=== PATIENT | male | born 1955 | race Caucasian/White ===

== ENCOUNTER 2016-09-01 19:45 | Emergency (ER) | payer MEDICAID ==
[~2016-09-01] VITALS: Ht 172.7 cm; Wt 93.0 kg
[~2016-09-01 19:45] MED LIST: HYDR-3583 PO; SYMB80AE INH; VENTAER INH
[2016-09-01 19:47] VITALS: BP 113/66; PULSE 68; RESP 16; TEMP 98.1; O2SAT 96
--- NOTE | 2016-09-01 20:07 | PD ---
HPI Chief Complaint: Respiratory Symptoms Time Seen by Provider: 20:06 Travel History International Travel<30 days: No Contact w/Intl Traveler<30days: No Traveled to known affect area: No History of Present Illness HPI The patient 61 years old. He states he has asthma or COPD. He was never a smoker. He had some wheezing earlier in the day and arrives to the ER as he has no albuterol at home. He experiences intermittent pressure-like sensation on the lower chest bilaterally following wheezing episodes. The patient had a nuclear medicine stress test about 13 months prior which was normal. He has an occasional cough. He states his wheezing has more or less resolved however opines that a breathing treatment may be of some benefit. PFSH Past Medical History Hx Anticoagulant Therapy: No Asthma: Yes Heart Rhythm Problems: No Cardiac Catheterization: No Cardiomyopathy: Yes Cardiovascular Problems: Yes High Cholesterol: Yes Chemotherapy: No Congestive Heart Failure: No COPD: Yes Cerebrovascular Accident: No Diabetes: No Diminished Hearing: No Gastrointestinal Disorders: Yes (ENLARGED LIVER) Hypertension: No Musculoskeletal: Yes (SCOLIOSIS;CHRONIC BACK PAIN) Neurologic: No Respiratory: Yes (ASTHMA) Immunizations Current: Yes Pneumonia: Yes Past Surgical History Coronary Artery Bypass Graft: No Tonsillectomy: Yes ( A CHILD) Social History Alcohol Use: Yes (OCCASIONAL) Tobacco Use: No Substance Use: No Allergies-Medications (Allergen,Severity, Reaction): Coded Allergies: Atrovent (Verified Allergy, Severe, CHEST PAIN, 09/01/16) Clindamycin (Verified Allergy, Severe, Fatigue, 09/01/16) Darvon (Verified Allergy, Severe, NAUSEA, 09/01/16) Ampicillin (Verified Adverse Reaction, Severe, Chest Pain, 09/01/16) Unasyn (Verified Adverse Reaction, Severe, STATES MADE ABDOMEN UPTIGHT, 09/01/16) Bactrim (Verified Adverse Reaction, Intermediate, 09/01/16) ABD PAIN Levaquin (Verified Adverse Reaction, Intermediate, Nausea/Vomiting, 09/01/16 ) Penicillin (Verified Adverse Reaction, Intermediate, NAUSEA, 09/01/16) Reported Meds & Prescriptions Reported Meds & Active Scripts Active Symbicort Inh (Budesonide/Formoterol Fumarate) 80-4.5 Mcg/Act Aero 2 Puff INH Q12HR Ventolin Hfa 18 GM Inh (Albuterol Sulfate) 90 Mcg/Act Aer 2 Puff INH Q4-6H PRN Hydrocodone-Acetaminophen 10-325 mg Tab 1 Tab PO Q6H PRN Review of Systems Except as stated in HPI: all other systems reviewed are Neg General / Constitutional: No: Fever Cardiovascular: No: Diaphoresis Physical Exam Narrative GENERAL: 61-year-old male NAD pleasant SKIN: Warm and dry. HEAD: Atraumatic. Normocephalic. EYES: Pupils equal and round. No scleral icterus. No injection or drainage. ENT: No nasal bleeding or discharge. Mucous membranes pink and moist. NECK: Trachea midline. No JVD. CARDIOVASCULAR: Regular rate and rhythm. No murmur appreciated. RESPIRATORY: There is no significant dyspnea. Perhaps trace wheezing is appreciable on auscultation of the lungs anteriorly. GASTROINTESTINAL: Abdomen soft, non-tender, nondistended. Hepatic and splenic margins not palpable. MUSCULOSKELETAL: No obvious deformities. No clubbing. No cyanosis. No edema. NEUROLOGICAL: Awake and alert. No obvious cranial nerve deficits. Motor grossly within normal limits. Normal speech. PSYCHIATRIC: Appropriate mood and affect; insight and judgment normal. Data Data Last Documented VS Vital Signs Date Time Temp Pulse Resp B/P Pulse Ox O2 Delivery O2 Flow Rate FiO2 09/01/16 20:48 94 18 127/71 97 Room Air 09/01/16 19:47 98.1 Orders Oximetry (09/01/16 20:13) Albuterol Neb (Albuterol Neb) (09/01/16 20:15) Albuterol Hfa Inh (Proair Hfa Inh) (09/01/16 20:15) MDM Medical Decision Making Medical Screen Exam Complete: Yes Emergency Medical Condition: Yes Medical Record Reviewed: Yes Differential Diagnosis Asthma, COPD, coronary artery disease, musculoskeletal chest pain, gastrointestinal pain Narrative Course Wheezing is fairly minimal on exam. Albuterol neb was provided as was an inhaler. Steroids at this time unlikely to confer substantial additional benefit. Pt ok for dc home. Diagnosis Primary Impression: Wheezing Referrals: DR MORALES 2 days Additional Instructions: You have a choice when it comes to health care, and we are glad that you chose [facility]. Hopefully, we have met your expectations on today's visit. You are welcome to return to [facility] at any time, as we are committed to meeting the health care needs of our community. Med/Other Pt SpecificInfo: Prescription(s) given Scripts Budesonide-Formoterol Inh (Symbicort Inh)80-4.5 Mcg/Act Aero2 Puff INH Q12HR # 1 INHALER Ref 0 Prov:Spencer Wilson MD 09/01/16 Albuterol 18 GM Inh (Ventolin Hfa 18 GM Inh)90 Mcg/Act Aer2 Puff INH Q4-6H PRN ( SHORTNESS OF BREATH) #1 INHALER Ref 0 Prov:Spencer Wilson MD 09/01/16 Disposition: 01 DISCHARGE HOME Condition: Spencer Garcia MD Sep 01, 2016 20:07 Disposition: 01 DISCHARGE HOME Condition: Spencer Garcia MD Sep 01, 2016 20:07
[2016-09-01 20:12] VITALS: PULSE 65; RESP 18; O2SAT 97
[2016-09-01] MEDS ORDERED: ALBUTEROL SULFATE 90 MCG/ACT HFA 8 GM INHALER INH ONE (20:15)
[2016-09-01] MEDS: RESP: ALBUTEROL 2.5 MG/3 ML NEB (SCH) INH ×2 (20:23→20:24)
[2016-09-01 20:29] VITALS: O2SAT 97
[2016-09-01] MEDS ORDERED: SYMB80AE INH (20:40)
[2016-09-01] MEDS ORDERED: VENTAER INH (20:40)
[2016-09-01 20:48] VITALS: BP 127/71; PULSE 94; RESP 18; O2SAT 97
== END 2016-09-01 21:05 | disposition home or self-care (01) ==
LOC: NEPC 19:45
DX: R06.2 Wheezing (principal)
CPT/HCPCS: 94640; 94664; 99284; J7613

== ENCOUNTER 2016-09-03 22:04 | Emergency (ER) | payer MEDICAID ==
[~2016-09-03] VITALS: Ht 172.7 cm; Wt 92.0 kg
[2016-09-03 22:06] VITALS: BP 119/69; PULSE 70; RESP 16; TEMP 98; O2SAT 98
--- NOTE | 2016-09-04 02:36 | PD ---
HPI Chief Complaint: Abdominal Pain Time Seen by Provider: 02:37 Travel History International Travel<30 days: No Contact w/Intl Traveler<30days: No Traveled to known affect area: No History of Present Illness HPI 61-year-old male came to the emergency room with history of right upper quadrant abdominal pain for past 3 days. He says he binge drink on Jania and had a dozen shots. Since then he has been hurting on the right side. He has had a history of hepatomegaly. He was concerned for that. Vital signs are stable. Patient appears to be in no severe discomfort. [facility] Past Medical History Narrative Medical List of his past medical history reviewed from the nursing note. Hx Anticoagulant Therapy: No Asthma: Yes Heart Rhythm Problems: No Cardiac Catheterization: No Cardiomyopathy: Yes Cardiovascular Problems: Yes High Cholesterol: Yes Chemotherapy: No Congestive Heart Failure: No COPD: Yes Cerebrovascular Accident: No Diabetes: No Diminished Hearing: No Gastrointestinal Disorders: Yes (ENLARGED LIVER) Heparin Induced Thrombocytopen: No Hypertension: No Musculoskeletal: Yes (SCOLIOSIS;CHRONIC BACK PAIN) Neurologic: No Respiratory: Yes (ASTHMA) Immunizations Current: Yes Pneumonia: Yes Tetanus Vaccination: Unknown Past Surgical History Coronary Artery Bypass Graft: No Tonsillectomy: Yes ( A CHILD) Family History Family Myocardial Infarction: No Social History Alcohol Use: Yes (OCC) Tobacco Use: No ([facility]MENT 2ND HAND ) Substance Use: No Allergies-Medications (Allergen,Severity, Reaction): Coded Allergies: Atrovent (Verified Allergy, Severe, CHEST PAIN, 09/03/16) Clindamycin (Verified Allergy, Severe, Fatigue, 09/03/16) Darvon (Verified Allergy, Severe, NAUSEA, 09/03/16) Ampicillin (Verified Adverse Reaction, Severe, Chest Pain, 09/03/16) Unasyn (Verified Adverse Reaction, Severe, STATES MADE ABDOMEN UPTIGHT, 09/03/16) Bactrim (Verified Adverse Reaction, Intermediate, 09/03/16) ABD PAIN Levaquin (Verified Adverse Reaction, Intermediate, Nausea/Vomiting, 09/03/16 ) Penicillin (Verified Adverse Reaction, Intermediate, NAUSEA, 09/03/16) Comments List of his allergies reviewed from the nursing note. Reported Meds & Prescriptions Reported Meds & Active Scripts Active Azithromycin 250 Mg Tab 250 Mg PO DIRECTED Take 2 tabs (500 mg) on day 1 then 1 tab daily x 4 days. Prednisone 50 Mg Tab 50 Mg PO DAILY 4 Days Tamiflu (Oseltamivir Phosphate) 75 Mg Cap 75 Mg PO BID 7 Days Symbicort Inh (Budesonide/Formoterol Fumarate) 80-4.5 Mcg/Act Aero 2 Puff INH Q12HR Ventolin Hfa 18 GM Inh (Albuterol Sulfate) 90 Mcg/Act Aer 2 Puff INH Q4-6H PRN Hydrocodone-Acetaminophen 10-325 mg Tab 1 Tab PO Q6H PRN Narrative Medication List of his home medications reviewed from the nursing note. Review of Systems Except as stated in HPI: all other systems reviewed are Neg Physical Exam Narrative GENERAL: Awake, alert, no obvious distress SKIN: Warm and dry. HEAD: Atraumatic. Normocephalic. EYES: Pupils equal and round. No scleral icterus. No injection or drainage. ENT: No nasal bleeding or discharge. Mucous membranes pink and moist. NECK: Trachea midline. No JVD. CARDIOVASCULAR: Regular rate and rhythm. No murmur appreciated. RESPIRATORY: No accessory muscle use. Clear to auscultation. Breath sounds equal bilaterally. GASTROINTESTINAL: Abdomen soft, non-tender, nondistended. Hepatic and splenic margins not palpable. MUSCULOSKELETAL: No obvious deformities. No clubbing. No cyanosis. No edema. NEUROLOGICAL: Awake and alert. No obvious cranial nerve deficits. Motor grossly within normal limits. Normal speech. PSYCHIATRIC: Appropriate mood and affect; insight and judgment normal. Data Data Last Documented VS Vital Signs Date Time Temp Pulse Resp B/P Pulse Ox O2 Delivery O2 Flow Rate FiO2 09/04/16 04:53 115/69 09/04/16 03:00 80 16 96 Room Air 09/03/16 22:06 98.0 Orders Complete Blood Count With Diff (09/04/16 02:37) Comprehensive Metabolic Panel (09/04/16 02:37) Lipase (09/04/16 02:37) Iv Access Insert/Monitor (09/04/16 02:37) Ecg Monitoring (09/04/16 02:37) Oximetry (09/04/16 02:37) Sodium Chloride 0.9% Flush (Ns Flush) (09/04/16 02:45) Labs Laboratory Tests Test 09/04/16 03:20 White Blood Count 8.6 TH/MM3 Red Blood Count 4.34 MIL/MM3 Hemoglobin 13.5 GM/DL Hematocrit 38.4 % Mean Corpuscular Volume 88.5 FL Mean Corpuscular Hemoglobin 31.1 PG Mean Corpuscular Hemoglobin 35.2 % Concent Red Cell Distribution Width 13.1 % Platelet Count 126 TH/MM3 Mean Platelet Volume 7.5 FL Neutrophils (%) (Auto) 63.1 % Lymphocytes (%) (Auto) 19.5 % Monocytes (%) (Auto) 7.8 % Eosinophils (%) (Auto) 8.5 % Basophils (%) (Auto) 1.1 % Neutrophils # (Auto) 5.4 TH/MM3 Lymphocytes # (Auto) 1.7 TH/MM3 Monocytes # (Auto) 0.7 TH/MM3 Eosinophils # (Auto) 0.7 TH/MM3 Basophils # (Auto) 0.1 TH/MM3 CBC Comment DIFF FINAL Differential Comment Sodium Level 142 MEQ/L Potassium Level 3.5 MEQ/L Chloride Level 108 MEQ/L Carbon Dioxide Level 24.7 MEQ/L Anion Gap 9 MEQ/L Blood Urea Nitrogen 19 MG/DL Creatinine 0.97 MG/DL Estimat Glomerular Filtration 78 ML/MIN Rate Random Glucose 99 MG/DL Calcium Level 8.6 MG/DL Total Bilirubin 1.3 MG/DL Aspartate Amino Transf 10 U/L (AST/SGOT) Alanine Aminotransferase 18 U/L (ALT/SGPT) Alkaline Phosphatase 73 U/L Total Protein 6.9 GM/DL Albumin 3.4 GM/DL Lipase 146 U/L MDM Medical Decision Making Medical Screen Exam Complete: Yes Emergency Medical Condition: Yes Medical Record Reviewed: Yes Differential Diagnosis Hepatomegaly, alcoholic hepatitis Narrative Course 4 AM awaiting for the blood test results to come back. Patient has been in the emergency room numerous times. He does have a primary care but prefers to come to the emergency room since as per him he gets a more thorough exam here. He was encouraged to follow up with his primary care for nonemergent issues that can be taken care as an outpatient. Procedures EKG Prior to Arrival: No Diagnosis Primary Impression: Abdominal pain Qualified Code: R10.11 - Right upper quadrant abdominal pain Referrals: Primary Care Physician 2 days Additional Instructions: Please follow-up with your primary care. Do not drink alcohol till he open cleared by your primary care. Med/Other Pt SpecificInfo: No Change to Meds Disposition: 01 DISCHARGE HOME Condition: Stable Jina Nava MD Sep 04, 2016 02:36
[2016-09-04] MEDS ORDERED: SODIUM CHLORIDE 0.9% FLUSH 5 ML FLUSH IVF PRN (02:45)
[2016-09-04 03:00] VITALS: BP 120/76; PULSE 80; RESP 16; O2SAT 96
[2016-09-04 03:45] LABS: AUTOMATED NEUTROPHIL # 5.4 TH/MM3 (1.8-7.7); BASOPHIL # 0.1 TH/MM3 (0-0.2); BASOPHIL % 1.1 % (0.0-2.0); EOSINOPHIL # 0.7 TH/MM3 (0-0.4); EOSINOPHIL % 8.5 % (0.0-4.0); HEMATOCRIT 38.4 % (39.0-51.0); HEMO FLAGS DIFF FINAL; LYMPH % 19.5 % (9.0-44.0); LYMPHOCYTE # 1.7 TH/MM3 (1.0-4.8); MEAN CELL VOLUME 88.5 FL (80.0-100.0); MEAN CORPUSCULAR HEMOGLOBIN 31.1 PG (27.0-34.0); MEAN CORPUSCULAR HGB CONC 35.2 % (32.0-36.0); MONO % 7.8 % (0.0-8.0); NEUT % 63.1 % (16.0-70.0); PLATELET COUNT 126 TH/MM3 (150-450); RED BLOOD COUNT 4.34 MIL/MM3 (4.50-5.90); RED CELL DISTRIBUTION WIDTH 13.1 % (11.6-17.2); WHITE BLOOD COUNT 8.6 TH/MM3 (4.0-11.0)
[2016-09-04 03:57] LABS: ALT (GPT) 18 U/L (12-78); ANION GAP 9 MEQ/L (5-15); AST (GOT) 10 U/L (15-37); BICARBONATE 24.7 MEQ/L (21.0-32.0); BLOOD UREA NITROGEN 19 MG/DL (7-18); CHLORIDE 108 MEQ/L (98-107); GLOMERULAR FILTRATION RATE 78 ML/MIN (>89); POTASSIUM 3.5 MEQ/L (3.5-5.1); SODIUM (NA) 142 MEQ/L (136-145)
[2016-09-04 04:00] LABS: ALKALINE PHOSPHATASE 73 U/L (45-117); TOTAL BILIRUBIN ADULT 1.3 MG/DL (0.2-1.0)
[2016-09-04 04:53] VITALS: BP 115/69
[2016-09-05] MEDS ORDERED: OSEL75 PO (22:13)
[2016-09-05] MEDS ORDERED: PRED50 PO (22:13)
[2016-09-05] MEDS ORDERED: AZIT250T3 PO (22:13)
== END 2016-09-04 04:54 | disposition home or self-care (01) ==
LOC: NEPE 22:04
DX: R10.11 Right upper quadrant pain (principal); R16.0 Hepatomegaly, not elsewhere classified; E78.00 Pure hypercholesterolemia, unspecified; J44.9 Chronic obstructive pulmonary disease, unspecified; J45.998 Other asthma
CPT/HCPCS: 80053; 83690; 85025; 99284

== ENCOUNTER 2016-09-05 17:58 | Emergency (ER) | payer MEDICAID ==
[~2016-09-05] VITALS: Ht 172.7 cm; Wt 100.0 kg
[2016-09-05 18:05] VITALS: BP 127/74; PULSE 82; RESP 16; O2SAT 94
--- NOTE | 2016-09-05 19:18 | RADRPT ---
EXAM DATE/TIME: 09/05/2016 19:06 [facility] COMPARISON: CHEST SINGLE AP, July 06, 2016, 11:32. INDICATIONS : Chest pain. MEDICAL HISTORY : Asthma SURGICAL HISTORY : None. ENCOUNTER: Initial ACUITY: 1 day PAIN SCORE: 8/10 LOCATION: Bilateral chest FINDINGS: A single view of the chest demonstrates the lungs to be symmetrically aerated without evidence of mas s, infiltrate or effusion. The cardiomediastinal contours are unremarkable. Osseous structures are intact. CONCLUSION: No evidence of acute cardiopulmonary disease. Maxwell Beal MD on September 05, 2016 at 19:16 Board Certified Radiologist. This report was verified electronically.
[2016-09-05 20:20] VITALS: RESP 18; O2SAT 98
[2016-09-05 20:26] VITALS: BP 142/85; PULSE 78; RESP 18; TEMP 98.7; O2SAT 98
[2016-09-05] MEDS ORDERED: SODIUM CHLORIDE 0.9% FLUSH 5 ML FLUSH IVF PRN (20:30)
[2016-09-05] MEDS ORDERED: methylPREDNISolone SOD SUCC 125 MG/2 ML VIAL IVP ONE (20:30)
--- NOTE | 2016-09-05 21:07 | PD ---
HPI Chief Complaint: Chest Pain Time Seen by Provider: 20:21 Travel History International Travel<30 days: No Contact w/Intl Traveler<30days: No Traveled to known affect area: No History of Present Illness HPI 61-year-old male arrives to the ER with shortness of breath. He also has had a mild generalized headache, rhinorrhea, myalgias and fever for a few days. 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 He had an inhaler which was marginally beneficial. He describes some chest tightness associated with the dyspnea. The patient suffers with asthma. He was seen here several days prior for wheezing and received 2 rounds of albuterol and a inhaler to go home with. He deferred steroids at that time. Severity moderate. PFSH Past Medical History Hx Anticoagulant Therapy: No Asthma: Yes Heart Rhythm Problems: No Cardiac Catheterization: No Cardiomyopathy: Yes Cardiovascular Problems: Yes High Cholesterol: Yes Chemotherapy: No Congestive Heart Failure: No COPD: Yes Cerebrovascular Accident: No Diabetes: No Diminished Hearing: No Gastrointestinal Disorders: Yes (ENLARGED LIVER) Heparin Induced Thrombocytopen: No Hypertension: No Musculoskeletal: Yes (SCOLIOSIS;CHRONIC BACK PAIN) Neurologic: No Respiratory: Yes Immunizations Current: Yes Pneumonia: Yes Tetanus Vaccination: > 5 Years Influenza Vaccination: No Past Surgical History Coronary Artery Bypass Graft: No Tonsillectomy: Yes ( A CHILD) Social History Alcohol Use: Yes (OCC) Tobacco Use: No ([facility] 2ND HAND ) Substance Use: No Allergies-Medications (Allergen,Severity, Reaction): Coded Allergies: Atrovent (Verified Allergy, Severe, CHEST PAIN, 09/03/16) Clindamycin (Verified Allergy, Severe, Fatigue, 09/03/16) Darvon (Verified Allergy, Severe, NAUSEA, 09/03/16) Ampicillin (Verified Adverse Reaction, Severe, Chest Pain, 09/03/16) Unasyn (Verified Adverse Reaction, Severe, STATES MADE ABDOMEN UPTIGHT, 09/03/16) Bactrim (Verified Adverse Reaction, Intermediate, 09/03/16) ABD PAIN Levaquin (Verified Adverse Reaction, Intermediate, Nausea/Vomiting, 09/03/16 ) Penicillin (Verified Adverse Reaction, Intermediate, NAUSEA, 09/03/16) Reported Meds & Prescriptions Reported Meds & Active Scripts Active Azithromycin 250 Mg Tab 250 Mg PO DIRECTED Take 2 tabs (500 mg) on day 1 then 1 tab daily x 4 days. Prednisone 50 Mg Tab 50 Mg PO DAILY 4 Days Tamiflu (Oseltamivir Phosphate) 75 Mg Cap 75 Mg PO BID 7 Days Symbicort Inh (Budesonide/Formoterol Fumarate) 80-4.5 Mcg/Act Aero 2 Puff INH Q12HR Ventolin Hfa 18 GM Inh (Albuterol Sulfate) 90 Mcg/Act Aer 2 Puff INH Q4-6H PRN Hydrocodone-Acetaminophen 10-325 mg Tab 1 Tab PO Q6H PRN Review of Systems Except as stated in HPI: all other systems reviewed are Neg Physical Exam Narrative GENERAL: 61-year-old male pleasant and speaking sentences SKIN: Warm and dry. HEAD: Atraumatic. Normocephalic. EYES: Pupils equal and round. No scleral icterus. No injection or drainage. ENT: No nasal bleeding or discharge. Mucous membranes pink and moist. NECK: Trachea midline. No JVD. CARDIOVASCULAR: Regular rate and rhythm. No murmur appreciated. RESPIRATORY: Wheezing present bilaterally. Minimal tachypnea. GASTROINTESTINAL: Abdomen soft, non-tender, nondistended. Hepatic and splenic margins not palpable. MUSCULOSKELETAL: No obvious deformities. No clubbing. No cyanosis. No edema. NEUROLOGICAL: Awake and alert. No obvious cranial nerve deficits. Motor grossly within normal limits. Normal speech. PSYCHIATRIC: Appropriate mood and affect; insight and judgment normal. Data Data Last Documented VS Vital Signs Date Time Temp Pulse Resp B/P Pulse Ox O2 Delivery O2 Flow Rate FiO2 09/05/16 22:48 22 94 Room Air 09/05/16 22:34 106 120/55 09/05/16 20:26 98.7 2 Orders Electrocardiogram (09/05/16 18:16) Complete Blood Count With Diff (09/05/16 18:16) Basic Metabolic Panel (Bmp) (09/05/16 18:16) Chest, Single Ap (09/05/16 18:16) Iv Access Insert/Monitor (09/05/16 18:16) Ecg Monitoring (09/05/16 18:16) Oxygen Administration (09/05/16 18:16) Oximetry (09/05/16 18:16) Sodium Chloride 0.9% Flush (Ns Flush) (09/05/16 20:30) Methylprednisolone So Succ Inj (Solumedr (1/5/17 20:30) Albuterol Neb (Albuterol Neb) (09/05/16 20:30) Influenzae A/B Antigen (09/05/16 20:27) Oseltamivir (Tamiflu) (09/05/16 21:45) Albuterol Neb (Albuterol Neb) (09/05/16 23:15) Labs Laboratory Tests Test 09/05/16 20:40 White Blood Count 8.3 TH/MM3 Red Blood Count 4.63 MIL/MM3 Hemoglobin 14.2 GM/DL Hematocrit 41.0 % Mean Corpuscular Volume 88.6 FL Mean Corpuscular Hemoglobin 30.6 PG Mean Corpuscular Hemoglobin 34.5 % Concent Red Cell Distribution Width 13.2 % Platelet Count 129 TH/MM3 Mean Platelet Volume 8.5 FL Neutrophils (%) (Auto) 75.2 % Lymphocytes (%) (Auto) 10.4 % Monocytes (%) (Auto) 9.6 % Eosinophils (%) (Auto) 4.1 % Basophils (%) (Auto) 0.7 % Neutrophils # (Auto) 6.2 TH/MM3 Lymphocytes # (Auto) 0.9 TH/MM3 Monocytes # (Auto) 0.8 TH/MM3 Eosinophils # (Auto) 0.3 TH/MM3 Basophils # (Auto) 0.1 TH/MM3 CBC Comment DIFF FINAL Differential Comment Sodium Level 141 MEQ/L Potassium Level 3.7 MEQ/L Chloride Level 105 MEQ/L Carbon Dioxide Level 26.4 MEQ/L Anion Gap 10 MEQ/L Blood Urea Nitrogen 15 MG/DL Creatinine 0.96 MG/DL Estimat Glomerular Filtration 79 ML/MIN Rate Random Glucose 86 MG/DL Calcium Level 8.6 MG/DL [facility] Medical Decision Making Medical Screen Exam Complete: Yes Emergency Medical Condition: Yes Medical Record Reviewed: Yes Differential Diagnosis Asthma exacerbation, influenza, pneumonia, hypoxia, anemia, renal injury, electrolyte imbalance Narrative Course The patient does report chest tightness. He had a nuclear medicine stress test was performed 13 months prior was normal such that coronary disease is considered unlikely. Typically chest tightness accompanies his asthma/ respiratory distress episodes. Possible obscured lung base consolidation is not excluded. The patient will be discharged with azithromycin and prednisone and Tamiflu. He was able to ambulate about the pod and maintained normal sats with a normal gait and respiratory effort. Return precautions were discussed. Diagnosis Primary Impression: Wheezing Additional Impressions: Influenza Chest tightness Referrals: DR MORALES 2 days Additional Instructions: You have a choice when it comes to health care, and we are glad that you chose [facility]. Hopefully, we have met your expectations on today's visit. You are welcome to return to [facility] at any time, as we are committed to meeting the health care needs of our community. Med/Other Pt SpecificInfo: Prescription(s) given Scripts Azithromycin 250 Mg [id number] Mg PO DIRECTED #6 TAB Ref 0 Take 2 tabs (500 mg) on day 1 then 1 tab daily x 4 days. Prov:Spencer Wilson MD 09/05/16 Prednisone 50 Mg Tab50 Mg PO DAILY 4 Days Ref 0 Prov:Spencer Wilson MD 09/05/16 Oseltamivir (Tamiflu)75 Mg Cap75 Mg PO BID 7 Days Ref 0 Prov:Spencer Wilson MD 09/05/16 Disposition: 01 DISCHARGE HOME Condition: Stable Spencer Wilson MD Sep 05, 2016 21:06
[2016-09-05] MEDS: RESP: ALBUTEROL 2.5 MG/3 ML NEB (SCH) INH ×4 (21:15→23:33)
[2016-09-05] MEDS ORDERED: OSELTAMIVIR PHOSPHATE 75 MG CAP PO ONE (21:45)
[2016-09-05 21:54] LABS: AUTOMATED NEUTROPHIL # 6.2 TH/MM3 (1.8-7.7); BASOPHIL # 0.1 TH/MM3 (0-0.2); BASOPHIL % 0.7 % (0.0-2.0); EOSINOPHIL # 0.3 TH/MM3 (0-0.4); EOSINOPHIL % 4.1 % (0.0-4.0); HEMO FLAGS DIFF FINAL; LYMPH % 10.4 % (9.0-44.0); LYMPHOCYTE # 0.9 TH/MM3 (1.0-4.8); MEAN CELL VOLUME 88.6 FL (80.0-100.0); MEAN CORPUSCULAR HEMOGLOBIN 30.6 PG (27.0-34.0); MEAN CORPUSCULAR HGB CONC 34.5 % (32.0-36.0); MONO % 9.6 % (0.0-8.0); NEUT % 75.2 % (16.0-70.0); PLATELET COUNT 129 TH/MM3 (150-450); RED BLOOD COUNT 4.63 MIL/MM3 (4.50-5.90); RED CELL DISTRIBUTION WIDTH 13.2 % (11.6-17.2); WHITE BLOOD COUNT 8.3 TH/MM3 (4.0-11.0)
[2016-09-05] MEDS ORDERED: AZIT250T3 PO (22:13)
[2016-09-05] MEDS ORDERED: PRED50 PO (22:13)
[2016-09-05] MEDS ORDERED: OSEL75 PO (22:13)
[2016-09-05 22:25] LABS: BICARBONATE 26.4 MEQ/L (21.0-32.0); POTASSIUM 3.7 MEQ/L (3.5-5.1)
[2016-09-05 22:34] VITALS: BP 120/55; PULSE 106; RESP 16; O2SAT 94
[2016-09-05 22:48] VITALS: RESP 22; O2SAT 94
--- NOTE | 2016-09-06 14:53 | EKG ---
Date Performed: 09/05/2016 Time Performed: 19:44:26 PTAGE: 61 years EKG: Sinus rhythm NORMAL ECG PREVIOUS TRACING : 07/06/2016 12.28 Since previous tracing, no significant change noted DOCTOR: Janey Jo Interpretating Date/Time 09/06/2016 14:53:26
== END 2016-09-06 00:22 | disposition home or self-care (01) ==
LOC: NETRI 17:58 → NEPE 09-06 00:22
DX: J09.X2 Influenza due to identified novel influenza A virus with other respiratory manifestations (principal); I42.9 Cardiomyopathy, unspecified; J45.909 Unspecified asthma, uncomplicated; J44.9 Chronic obstructive pulmonary disease, unspecified; R51 Headache; Z77.22 Contact with and (suspected) exposure to environmental tobacco smoke (acute) (chronic)
CPT/HCPCS: 71010; 80048; 85025; 87804; 93005; 94640; 94664; 96374; 99285; J2930; J7613

== ENCOUNTER 2016-09-13 19:03 | Emergency (ER) | payer MEDICAID ==
[~2016-09-13] VITALS: Ht 172.7 cm; Wt 96.0 kg
[~2016-09-13 19:03] MED LIST changes: +AZIT250T3 PO; +OSEL75 PO; +PRED50 PO
[2016-09-13 19:09] VITALS: BP 110/71; PULSE 66; RESP 16; TEMP 97.6; O2SAT 95
[2016-09-13] MEDS ORDERED: RESP: ALBUTEROL 2.5 MG/IPRATROPIUM 0.5 MG NEB (SCH) NEB ONE (20:45)
[2016-09-13] MEDS ORDERED: KETOROLAC TROMETHAMINE 60 MG/2 ML (IM) VIAL IM ONE (20:45)
--- NOTE | 2016-09-13 21:28 | RADRPT ---
EXAM DATE/TIME: 09/13/2016 20:48 [facility] COMPARISON: No previous studies available for comparison. INDICATIONS : Cough, Chest Pain. MEDICAL HISTORY : Hypercholesterolemia. Chronic obstructive pulmonary disease. Cardiomyopathy. Asthma. Enlarged liver. Scoliosis. SURGICAL HISTORY : Tonsillectomy. ENCOUNTER: Initial ACUITY: 1 day PAIN SCORE: 7/10 LOCATION: Bilateral chest FINDINGS: The heart size is normal. The lungs are free of focal consolidation. The lungs do appear somewhat h yperinflated. No effusion is seen. CONCLUSION: No acute abnormality is seen. The lungs do appear hyperinflated. Maxwell Maher MD on September 13, 2016 at 20:55 Board Certified Radiologist. This report was verified electronically.
--- NOTE | 2016-09-13 23:11 | PD ---
HPI Chief Complaint: Respiratory Symptoms Time Seen by Provider: 20:20 Travel History International Travel<30 days: No Contact w/Intl Traveler<30days: No Traveled to known affect area: No History of Present Illness HPI Patient is a 61 year old male with history of asthma who comes in complaining of coughing up phlegm and right sided pain. He says he inhaled something in the air and this bothered his asthma, causing him to cough very hard. He says he has coughed up some clear phlegm and now has the pain to the right side of his ribs. He says he feels a pressure in his chest, which he always has when his asthma bothers him. He says he gets this pressure and he does not always wheeze. He denies fever or chills. He has recently been here multiple times for issues with his asthma. He recently finished a course of antibiotics and steroids. PFSH Past Medical History Hx Anticoagulant Therapy: No Asthma: Yes Heart Rhythm Problems: No Cardiac Catheterization: No Cardiomyopathy: Yes Cardiovascular Problems: Yes High Cholesterol: Yes Chemotherapy: No Congestive Heart Failure: No COPD: Yes Cerebrovascular Accident: No Diabetes: No Diminished Hearing: No Gastrointestinal Disorders: Yes (ENLARGED LIVER) Heparin Induced Thrombocytopen: No Hypertension: No Musculoskeletal: Yes (SCOLIOSIS;CHRONIC BACK PAIN) Neurologic: No Respiratory: Yes (ASTHMA) Immunizations Current: Yes Pneumonia: Yes Past Surgical History Coronary Artery Bypass Graft: No Tonsillectomy: Yes ( A CHILD) Social History Alcohol Use: Yes (OCC) 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 ) Substance Use: No Allergies-Medications (Allergen,Severity, Reaction): Coded Allergies: Atrovent (Verified Allergy, Severe, CHEST PAIN, 09/13/16) Clindamycin (Verified Allergy, Severe, Fatigue, 09/13/16) Darvon (Verified Allergy, Severe, NAUSEA, 09/13/16) Ampicillin (Verified Adverse Reaction, Severe, Chest Pain, 09/13/16) Unasyn (Verified Adverse Reaction, Severe, STATES MADE ABDOMEN UPTIGHT, ) Bactrim (Verified Adverse Reaction, Intermediate, 09/13/16) ABD PAIN Levaquin (Verified Adverse Reaction, Intermediate, Nausea/Vomiting, ) Penicillin (Verified Adverse Reaction, Intermediate, NAUSEA, 09/13/16) Reported Meds & Prescriptions Reported Meds & Active Scripts Active Symbicort Inh (Budesonide/Formoterol Fumarate) 80-4.5 Mcg/Act Aero 2 Puff INH Q12HR Ventolin Hfa 18 GM Inh (Albuterol Sulfate) 90 Mcg/Act Aer 2 Puff INH Q4-6H PRN Hydrocodone-Acetaminophen 10-325 mg Tab 1 Tab PO Q6H PRN Review of Systems General / Constitutional: No: Fever, Chills HENT: No: Headaches, Lightheadedness, Sore Throat Cardiovascular: No: Chest Pain or Discomfort Respiratory: Positive: Cough Gastrointestinal: No: Nausea, Vomiting Genitourinary: No: Dysuria Musculoskeletal: Positive: Pain Skin: No Change in Pigmentation Neurologic: No: Weakness, Dizziness Physical Exam Narrative GENERAL: Awake and alert in no acute distress. SKIN: Warm and dry. HEAD: Atraumatic. Normocephalic. EYES: Pupils equal and round. No scleral icterus. ENT: Mucous membranes pink and moist. No tonsillar swelling, no uvular swelling, no tonsillar exudates. NECK: Trachea midline. No JVD. CARDIOVASCULAR: Regular rate and rhythm. No murmur appreciated. RESPIRATORY: No accessory muscle use. Clear to auscultation. Breath sounds equal bilaterally. MUSCULOSKELETAL: No obvious deformities. No clubbing. No cyanosis. No edema. NEUROLOGICAL: Awake and alert. No obvious cranial nerve deficits. Motor grossly within normal limits. Normal speech. Data Data Last Documented VS Vital Signs Date Time Temp Pulse Resp B/P Pulse Ox O2 Delivery O2 Flow Rate FiO2 09/13/16 19:09 97.6 66 16 110/71 95 Orders Chest, Pa & Lat (09/13/16 ) Electrocardiogram (09/13/16 ) Albuterol-Ipratropium Neb (Duoneb Neb) (09/13/16 20:45) Ketorolac Inj (Toradol Inj) (09/13/16 20:45) MDM Medical Decision Making Medical Screen Exam Complete: Yes Emergency Medical Condition: Yes Medical Record Reviewed: Yes Interpretation(s) ECG shows sinus bradycardia at 58, no ST elevation or depression, normal intervals. Differential Diagnosis URI versus pneumonia versus bronchitis versus asthma exacerbation Narrative Course Patient is a 61 year old male complaining of coughing and right side pain after "inhaling something." Exam shows lungs are CTA. There is tenderness to the right lower ribs on the side. CXR obtained, shows no acute abnormalities. Given 1 duoneb and Toradol with improvement of his symptoms. Patient will be discharged home. Advised to follow up with his doctor. Return to the ED as needed for any worsening symptoms. Diagnosis Primary Impression: Rib pain Patient Instructions: Asthma (ED), General Instructions, Rib Contusion (ED) Additional Instructions: Take Tylenol or Ibuprofen as needed for pain. Use your inhaler as needed for asthma. Follow up with your doctor. Return to the ED as needed for any worsening symptoms. Disposition: 01 DISCHARGE HOME Condition: Stable Skyla Gardner MD Sep 13, 2016 23:11
--- NOTE | 2016-09-14 14:26 | EKG ---
Date Performed: 09/13/2016 Time Performed: 21:07:18 PTAGE: 61 years EKG: SINUS BRADYCARDIA LOW QRS VOLTAGE IN PRECORDIAL LEADS BORDERLINE ECG Compared to prior trac ing no significant change PREVIOUS TRACING 09/05/2016 @19.44.26 DOCTOR: Mendez Jain Interpretating Date/Time 09/14/2016 14:24:59
== END 2016-09-14 00:22 | disposition home or self-care (01) ==
LOC: NEPE 19:03
DX: R07.81 Pleurodynia (principal); J45.909 Unspecified asthma, uncomplicated; J44.9 Chronic obstructive pulmonary disease, unspecified
CPT/HCPCS: 71020; 93005; 94664; 96372; 99283; J1885

== ENCOUNTER 2016-09-27 20:48 | Emergency (ER) | payer MEDICAID ==
[~2016-09-27] VITALS: Ht 172.7 cm; Wt 91.0 kg
[~2016-09-27 20:48] MED LIST changes: -AZIT250T3 PO; -OSEL75 PO; -PRED50 PO
[2016-09-27 20:52] VITALS: BP 145/78; PULSE 64; RESP 18; TEMP 97.7; O2SAT 97
[2016-09-27] MEDS ORDERED: NAPR500 PO (21:20)
--- NOTE | 2016-09-27 21:21 | PD ---
HPI Chief Complaint: Respiratory Symptoms Time Seen by Provider: 21:00 Travel History International Travel<30 days: No Contact w/Intl Traveler<30days: No Traveled to known affect area: No History of Present Illness HPI 61-year-old male presents emergent department pruritic right sided chest pain ongoing for months. He states it started after he was admitted for antibiotics and he felt like it is swollen liver. Multiple tests since then. Worse today and so he came to the emergency department. PFSH Past Medical History Hx Anticoagulant Therapy: No Asthma: Yes Heart Rhythm Problems: No Cardiac Catheterization: No Cardiomyopathy: Yes Cardiovascular Problems: Yes High Cholesterol: Yes Chemotherapy: No Congestive Heart Failure: No COPD: Yes Cerebrovascular Accident: No Diabetes: No Diminished Hearing: No Gastrointestinal Disorders: Yes (ENLARGED LIVER) Heparin Induced Thrombocytopen: No Hypertension: No Musculoskeletal: Yes (SCOLIOSIS;CHRONIC BACK PAIN) Neurologic: No Respiratory: Yes (ASTHMA) Immunizations Current: Yes Pneumonia: Yes Tetanus Vaccination: Unknown Influenza Vaccination: No Past Surgical History Coronary Artery Bypass Graft: No Tonsillectomy: Yes ( A CHILD) Social History Alcohol Use: Yes (OCC) Tobacco Use: No ([facility] 2ND HAND ) Substance Use: No Allergies-Medications (Allergen,Severity, Reaction): Coded Allergies: Atrovent (Verified Allergy, Severe, CHEST PAIN, 09/27/16) Clindamycin (Verified Allergy, Severe, Fatigue, 09/27/16) Darvon (Verified Allergy, Severe, NAUSEA, 09/27/16) Ampicillin (Verified Adverse Reaction, Severe, Chest Pain, 09/27/16) Unasyn (Verified Adverse Reaction, Severe, STATES MADE ABDOMEN UPTIGHT, ) Bactrim (Verified Adverse Reaction, Intermediate, 09/27/16) ABD PAIN Levaquin (Verified Adverse Reaction, Intermediate, Nausea/Vomiting, ) Penicillin (Verified Adverse Reaction, Intermediate, NAUSEA, 09/27/16) Reported Meds & Prescriptions Reported Meds & Active Scripts Active Symbicort Inh (Budesonide/Formoterol Fumarate) 80-4.5 Mcg/Act Aero 2 Puff INH Q12HR Ventolin Hfa 18 GM Inh (Albuterol Sulfate) 90 Mcg/Act Aer 2 Puff INH Q4-6H PRN Hydrocodone-Acetaminophen 10-325 mg Tab 1 Tab PO Q6H PRN Review of Systems Except as stated in HPI: all other systems reviewed are Neg Physical Exam Narrative GENERAL: Well-appearing 61 year-old woman, no acute distress. SKIN: Warm and dry. HEAD: Atraumatic. Normocephalic. EYES: Pupils equal and round. No scleral icterus. No injection or drainage. ENT: No nasal bleeding or discharge. Mucous membranes pink and moist. NECK: Trachea midline. No JVD. CARDIOVASCULAR: Regular rate and rhythm. No murmur appreciated. RESPIRATORY: Lungs are clear. No wheezing.. Abdomen: Soft. No palpable organomegaly or splenomegaly. MUSCULOSKELETAL: No obvious deformities. Chronic edema in both legs. NEUROLOGICAL: Awake and alert. No obvious cranial nerve deficits. Motor grossly within normal limits. Normal speech. PSYCHIATRIC: Appropriate mood and affect; insight and judgment normal. Data Data Last Documented VS Vital Signs Date Time Temp Pulse Resp B/P Pulse Ox O2 Delivery O2 Flow Rate FiO2 09/27/16 20:52 97.7 64 18 145/78 97 Room Air MDM Medical Decision Making Medical Screen Exam Complete: Yes Emergency Medical Condition: Yes Differential Diagnosis Pleurisy, chest wall pain, PE, other Narrative Course Medical decision-making 61-year-old man with visits to the ED every other week for various complaints. Some history of asthma. Comes in now of right sided chest pain ongoing for months. Multiple x-rays since that time, all negative. He had ultrasound showed some mild splenomegaly. He also had a CT showed some nodules in the right lung. Elevated needs any further evaluation right now. Recommend repeat CT as discussed for follow-up of pulmonary nodules, NSAIDs for pain. Diagnosis Primary Impression: Atypical chest pain Additional Instructions: Follow-up with her primary physician for repeat CT to follow-up on nodules in the right lung. Take Naprosyn as needed for pain. Return to the emergency department for any new or worsening symptoms. Scripts Naproxen (Naprosyn)500 Mg [id number] Mg PO BID PRN (PAIN SCALE 1 TO 10) #20 TAB Prov:Soy Zhang MD 09/27/16 Disposition: 01 DISCHARGE HOME Condition: Stable Soy Zhang MD Sep 27, 2016 21:20
== END 2016-09-27 22:15 | disposition home or self-care (01) ==
LOC: NEPE 20:48
DX: R07.89 Other chest pain (principal); E78.00 Pure hypercholesterolemia, unspecified; J44.9 Chronic obstructive pulmonary disease, unspecified; J45.909 Unspecified asthma, uncomplicated
CPT/HCPCS: 99284

== ENCOUNTER 2016-09-28 17:53 | Emergency (ER) | payer MEDICAID ==
[~2016-09-28] VITALS: Ht 172.7 cm; Wt 92.0 kg
[~2016-09-28 17:53] MED LIST changes: +NAPR500 PO
[2016-09-28 17:55] VITALS: BP 142/73; PULSE 60; RESP 20; TEMP 97.8; O2SAT 96
--- NOTE | 2016-09-28 18:26 | PD ---
HPI Chief Complaint: Pain: Acute or Chronic Time Seen by Provider: 18:15 Travel History International Travel<30 days: No Contact w/Intl Traveler<30days: No Traveled to known affect area: No History of Present Illness HPI Patient is a 61-year-old male who presents to emergency room for evaluation of a lung nodules. Patient reports that he was seen a few months ago and had a CAT scan of his lungs which showed lung nodules, reports that he was seen in the emergency room last night and was told that he had these lung nodules that need to be evaluated. Patient here in the emergency room requesting that his lung nodules be evaluated and worked up. Patient reports "I don't want to wait to see my primary care doctor, I want to know if I have cancer right now." Patient denies chest pain/sob. Patient reports that he is only here for workup of his lung nodules PFSH Past Medical History Hx Anticoagulant Therapy: No Asthma: Yes Heart Rhythm Problems: No Cardiac Catheterization: No Cardiomyopathy: Yes Cardiovascular Problems: Yes High Cholesterol: Yes Chemotherapy: No Congestive Heart Failure: No COPD: Yes Cerebrovascular Accident: No Diabetes: No Diminished Hearing: No Gastrointestinal Disorders: Yes (ENLARGED LIVER) Heparin Induced Thrombocytopen: No Hypertension: No Musculoskeletal: Yes (SCOLIOSIS;CHRONIC BACK PAIN) Neurologic: No Respiratory: Yes Immunizations Current: Yes Pneumonia: Yes Past Surgical History Coronary Artery Bypass Graft: No Tonsillectomy: Yes ( A CHILD) Social History Alcohol Use: Yes (OCC) 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 ) Substance Use: No Allergies-Medications (Allergen,Severity, Reaction): Coded Allergies: Atrovent (Verified Allergy, Severe, CHEST PAIN, 09/27/16) Clindamycin (Verified Allergy, Severe, Fatigue, 09/27/16) Darvon (Verified Allergy, Severe, NAUSEA, 09/27/16) Ampicillin (Verified Adverse Reaction, Severe, Chest Pain, 09/27/16) Unasyn (Verified Adverse Reaction, Severe, STATES MADE ABDOMEN UPTIGHT, ) Bactrim (Verified Adverse Reaction, Intermediate, 09/27/16) ABD PAIN Levaquin (Verified Adverse Reaction, Intermediate, Nausea/Vomiting, ) Penicillin (Verified Adverse Reaction, Intermediate, NAUSEA, 09/27/16) Reported Meds & Prescriptions Reported Meds & Active Scripts Active Naprosyn (Naproxen) 500 Mg Tab 500 Mg PO BID PRN Symbicort Inh (Budesonide/Formoterol Fumarate) 80-4.5 Mcg/Act Aero 2 Puff INH Q12HR Ventolin Hfa 18 GM Inh (Albuterol Sulfate) 90 Mcg/Act Aer 2 Puff INH Q4-6H PRN Hydrocodone-Acetaminophen 10-325 mg Tab 1 Tab PO Q6H PRN Review of Systems General / Constitutional: No: Fever Eyes: No: Visual changes HENT: No: Headaches Cardiovascular: No: Chest Pain or Discomfort Respiratory: No: Shortness of Breath Gastrointestinal: No: Abdominal Pain Genitourinary: No: Dysuria Musculoskeletal: No: Pain Skin: No Rash Neurologic: No: Weakness Psychiatric: No: Depression Endocrine: No: Polydipsia Hematologic/Lymphatic: No: Easy Bruising Physical Exam Narrative GENERAL: nad, nontoxic SKIN: Warm and dry. HEAD: Atraumatic. Normocephalic. CARDIOVASCULAR: Regular rate and rhythm. No murmur appreciated. RESPIRATORY: No accessory muscle use. Clear to auscultation. Breath sounds equal bilaterally. GASTROINTESTINAL: Abdomen soft, non-tender, nondistended. Hepatic and splenic margins not palpable. MUSCULOSKELETAL: No obvious deformities. No clubbing. No cyanosis. No edema. NEUROLOGICAL: Awake and alert. No obvious cranial nerve deficits. Motor grossly within normal limits. Normal speech. PSYCHIATRIC: anxious Data Data Last Documented VS Vital Signs Date Time Temp Pulse Resp B/P Pulse Ox O2 Delivery O2 Flow Rate FiO2 09/28/16 17:55 97.8 60 20 142/73 96 Room Air [facility] Medical Decision Making Medical Screen Exam Complete: Yes Emergency Medical Condition: No Interpretation(s) Vital Signs Date Time Temp Pulse Resp B/P Pulse Ox O2 Delivery O2 Flow Rate FiO2 09/28/16 17:55 97.8 60 20 142/73 96 Room Air Differential Diagnosis lung nodule, malignancy Narrative Course Patient is a 61-year-old male who presents most room for evaluation of lung nodule. Patient reports that he had recent CAT scans of his chest which showed a nodule to his lung, reports that he was told his lung nodules yesterday as he was seen in the emergency room for atypical chest pain. Patient reports that he is concerned that his lung nodules may be cancerous and request further evaluation of these lung nodules today, patient would like to know if he has lung cancer. Patient's vital signs are stable, patient with no other complaints at this time. I did discuss with patient that he will need to follow-up with his primary care doctor for further workup and evaluation of the lung nodules, discussed with patient that I cannot diagnose lung cancer in the ER and that he will need to follow up as outpatient for further testing. Discussed with patient that I would be more than happy to treat and manage any acute symptoms he may be having at this time, patient reports that he is only here to see if he has lung cancer. During my conversation and evaluation of patient, patient decided that he no longer wanted to be evaluated and walked out of the ER. Yoselin Martinez DO Sep 28, 2016 18:26
== END 2016-09-28 18:51 | disposition home or self-care (01) ==
LOC: NEPC 17:53
DX: R91.8 Other nonspecific abnormal finding of lung field (principal)
CPT/HCPCS: 99283

== ENCOUNTER 2016-10-09 08:41 | Emergency (ER) | payer MEDICAID ==
[~2016-10-09] VITALS: Ht 172.7 cm; Wt 92.0 kg
[2016-10-09 08:53] VITALS: BP 119/81; PULSE 71; RESP 16; TEMP 98.5; O2SAT 97
[2016-10-09] MEDS ORDERED: IBUP800T23 PO (09:21)
[2016-10-09] MEDS ORDERED: ROBA500T PO (09:21)
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
[2016-10-09] MEDS ORDERED: METHOCARBAMOL 500 MG TAB PO ONE (09:30)
[2016-10-09] MEDS ORDERED: IBUPROFEN 800 MG TAB PO ONE (09:30)
== END 2016-10-09 09:39 | disposition home or self-care (01) ==
LOC: NEPB 08:41
DX: S00.83XA Contusion of other part of head, initial encounter (principal); G89.29 Other chronic pain; J45.909 Unspecified asthma, uncomplicated; E78.00 Pure hypercholesterolemia, unspecified; J44.9 Chronic obstructive pulmonary disease, unspecified; Y04.0XXA Assault by unarmed brawl or fight, initial encounter; Y09 Assault by unspecified means
CPT/HCPCS: 99283

== ENCOUNTER 2017-02-19 21:47 | Emergency (ER) | payer MEDICAID ==
[~2017-02-19] VITALS: Ht 172.7 cm; Wt 79.0 kg
[~2017-02-19 21:47] MED LIST changes: +IBUP800T23 PO; +ROBA500T PO
[2017-02-19 21:50] VITALS: BP 115/69; PULSE 67; RESP 16; TEMP 98.7; O2SAT 97
--- NOTE | 2017-02-19 22:33 | PD ---
HPI Chief Complaint: ENT Complaint Time Seen by Provider: 22:31 Travel History International Travel<30 days: No Contact w/Intl Traveler<30days: No Traveled to known affect area: No History of Present Illness HPI Patient presents complaining of left ear pressure, muffled hearing. He states it's been going on for 4-5 days. He reports a history of the same when he had wax impacted. He denies any headaches, fevers or other complaints at this time. PFSH Past Medical History Hx Anticoagulant Therapy: No Asthma: Yes Heart Rhythm Problems: No Cardiac Catheterization: No Cardiomyopathy: Yes Cardiovascular Problems: Yes High Cholesterol: Yes Chemotherapy: No Congestive Heart Failure: No COPD: Yes Cerebrovascular Accident: No Diabetes: No Diminished Hearing: No Gastrointestinal Disorders: Yes (ENLARGED LIVER) Heparin Induced Thrombocytopen: No Hypertension: No Musculoskeletal: Yes (SCOLIOSIS;CHRONIC BACK PAIN) Neurologic: No Respiratory: Yes (ASTHMA) Immunizations Current: Yes Pneumonia: Yes Past Surgical History Coronary Artery Bypass Graft: No Tonsillectomy: Yes ( A CHILD) Social History Alcohol Use: Yes Tobacco Use: Yes Substance Use: No Allergies-Medications (Allergen,Severity, Reaction): Coded Allergies: Atrovent (Verified Allergy, Severe, CHEST PAIN, 02/19/17) Clindamycin (Verified Allergy, Severe, Fatigue, 02/19/17) Darvon (Verified Allergy, Severe, NAUSEA, 02/19/17) Ampicillin (Verified Adverse Reaction, Severe, Chest Pain, 02/19/17) Unasyn (Verified Adverse Reaction, Severe, STATES MADE ABDOMEN UPTIGHT, ) Bactrim (Verified Adverse Reaction, Intermediate, 02/19/17) ABD PAIN Levaquin (Verified Adverse Reaction, Intermediate, Nausea/Vomiting, ) Penicillin (Verified Adverse Reaction, Intermediate, NAUSEA, 02/19/17) Reported Meds & Prescriptions Reported Meds & Active Scripts Active Symbicort Inh (Budesonide/Formoterol Fumarate) 80-4.5 Mcg/Act Aero 2 Puff INH Q12HR Ventolin Hfa 18 GM Inh (Albuterol Sulfate) 90 Mcg/Act Aer 2 Puff INH Q4-6H PRN Hydrocodone-Acetaminophen 10-325 mg Tab 1 Tab PO Q6H PRN Review of Systems Except as stated in HPI: all other systems reviewed are Neg HENT: Positive: Earache Physical Exam Narrative GENERAL: Well-nourished, well-developed patient. SKIN: Focused skin assessment warm/dry. HEAD: Normocephalic. EYES: No scleral icterus. No injection or drainage. EARS: Bilateral pinnae and right external canals appear within normal limits. Bilateral tympanic membranes without erythema, dullness or perforation. Left external ear canal with significant cerumen impaction. Cerumen was removed with curette NECK: Supple, trachea midline. No JVD or lymphadenopathy. CARDIOVASCULAR: Regular rate and rhythm without murmurs, gallops, or rubs. RESPIRATORY: Breath sounds equal bilaterally. No accessory muscle use. GASTROINTESTINAL: Abdomen soft, non-tender, nondistended. MUSCULOSKELETAL: No cyanosis, or edema. BACK: Nontender without obvious deformity. No CVA tenderness. Data Data Last Documented VS Vital Signs Date Time Temp Pulse Resp B/P Pulse Ox O2 Delivery O2 Flow Rate FiO2 02/19/17 21:50 98.7 67 16 115/69 97 Room Air MDM Medical Decision Making Medical Screen Exam Complete: Yes Emergency Medical Condition: Yes Interpretation(s) Vital Signs Date Time Temp Pulse Resp B/P Pulse Ox O2 Delivery O2 Flow Rate FiO2 02/19/17 21:50 98.7 67 16 115/69 97 Room Air Differential Diagnosis Otitis media versus otitis externa versus cerumen impaction versus other Narrative Course Patient is a 61-year-old male presenting with left ear pressure and felt hearing. Physical examination showed significant cerumen impaction, cerumen was removed with curette. Patient tolerated procedure well. He was encouraged to avoid Q-tips and obtain [id number] DEBROX and use as directed. He was encouraged to follow-up with primary care provider. He was encouraged to return to emergency department for any new or worsening symptoms. Patient verbalized understanding, patient is stable for discharge. Diagnosis Primary Impression: Cerumen impaction Qualified Code: H61.22 - Impacted cerumen of left ear Referrals: [facility] Primary Care Physician Patient Instructions: Cerumen Impaction (ED), General Instructions Additional Instructions: Obtain [id number] DEBROX and use as directed Avoid use of Q-tips Follow-up with a primary doctor Return to emergency department for new or worsening symptoms Med/Other Pt SpecificInfo: No Change to Meds Disposition: 01 DISCHARGE HOME Condition: Stable Shanika Loredo Feb 19, 2017 22:33
== END 2017-02-19 22:44 | disposition home or self-care (01) ==
LOC: NEPK 21:47
DX: H61.22 Impacted cerumen, left ear (principal); J45.909 Unspecified asthma, uncomplicated; I42.9 Cardiomyopathy, unspecified; E78.00 Pure hypercholesterolemia, unspecified; J44.9 Chronic obstructive pulmonary disease, unspecified; M41.9 Scoliosis, unspecified; Z72.0 Tobacco use; Z79.899 Other long term (current) drug therapy
CPT/HCPCS: 69210

== ENCOUNTER 2017-03-09 14:43 | Emergency (ER) | payer MEDICAID ==
[~2017-03-09 14:43] MED LIST changes: -IBUP800T23 PO; -NAPR500 PO; -ROBA500T PO
[2017-03-09 14:45] VITALS: BP 125/80; PULSE 84; RESP 18; TEMP 98.6; O2SAT 99
[2017-03-09] MEDS ORDERED: SYMB80AE INH (16:28)
[2017-03-09] MEDS ORDERED: VENTAER INH (16:28)
--- NOTE | 2017-03-09 16:29 | PD ---
HPI Chief Complaint: Medical Clearance Time Seen by Provider: 16:27 Travel History International Travel<30 days: No Contact w/Intl Traveler<30days: No Traveled to known affect area: No History of Present Illness HPI 61-year-old male presents to the emergency department requesting refills on inhalers of Symbicort and Ventolin for his asthma. He said he ran out of his inhalers 2 days ago and feels like he may have an asthma exacerbation coming on and does not want to end up having to call the ambulance. He does not have money to pay for the prescriptions and is asking for the inhalers to take home. He denies chest pain, chest tightness, shortness of breath, wheezing at this time. Has no other medical complaints. No other modifying factors or associated signs and symptoms. PFSH Past Medical History Hx Anticoagulant Therapy: No Asthma: Yes Heart Rhythm Problems: No Cardiac Catheterization: No Cardiomyopathy: Yes Cardiovascular Problems: Yes High Cholesterol: Yes Chemotherapy: No Congestive Heart Failure: No COPD: Yes Cerebrovascular Accident: No Diabetes: No Diminished Hearing: No Gastrointestinal Disorders: Yes (ENLARGED LIVER) Heparin Induced Thrombocytopen: No Hypertension: No Musculoskeletal: Yes (SCOLIOSIS;CHRONIC BACK PAIN) Neurologic: No Respiratory: Yes (ASTHMA) Immunizations Current: Yes Pneumonia: Yes Past Surgical History Coronary Artery Bypass Graft: No Tonsillectomy: Yes ( A CHILD) Social History Alcohol Use: Yes Tobacco Use: Yes Substance Use: No Allergies-Medications (Allergen,Severity, Reaction): Coded Allergies: Atrovent (Verified Allergy, Severe, CHEST PAIN, 02/19/17) Clindamycin (Verified Allergy, Severe, Fatigue, 02/19/17) Darvon (Verified Allergy, Severe, NAUSEA, 02/19/17) Ampicillin (Verified Adverse Reaction, Severe, Chest Pain, 02/19/17) Unasyn (Verified Adverse Reaction, Severe, STATES MADE ABDOMEN UPTIGHT, ) Bactrim (Verified Adverse Reaction, Intermediate, 02/19/17) ABD PAIN Levaquin (Verified Adverse Reaction, Intermediate, Nausea/Vomiting, ) Penicillin (Verified Adverse Reaction, Intermediate, NAUSEA, 02/19/17) Reported Meds & Prescriptions Reported Meds & Active Scripts Active Symbicort Inh (Budesonide/Formoterol Fumarate) 80-4.5 Mcg/Act Aero 2 Puff INH Q12HR Ventolin Hfa 18 GM Inh (Albuterol Sulfate) 90 Mcg/Act Aer 2 Puff INH Q4-6H PRN Hydrocodone-Acetaminophen 10-325 mg Tab 1 Tab PO Q6H PRN Review of Systems Except as stated in HPI: all other systems reviewed are Neg Physical Exam Narrative GENERAL: Well-nourished, well-developed patient, in no acute distress; disheveled SKIN: Warm and dry. HEAD: Atraumatic. Normocephalic. EYES: Pupils equal and round. No scleral icterus. No injection or drainage. ENT: Mucosa pink and moist. Airway patent. NECK: Trachea midline. CARDIOVASCULAR: Regular rate and rhythm. No murmur appreciated. RESPIRATORY: No accessory muscle use. Clear to auscultation. Breath sounds equal bilaterally. No retractions or tachypnea. GASTROINTESTINAL: Rounded. MUSCULOSKELETAL: No obvious deformities. No clubbing. No cyanosis. No edema. NEUROLOGICAL: Awake and alert. Oriented 3. No obvious cranial nerve deficits. Motor grossly within normal limits. Normal speech. PSYCHIATRIC: Appropriate mood and affect; insight and judgment normal. Data Data Last Documented VS Vital Signs Date Time Temp Pulse Resp B/P Pulse Ox O2 Delivery O2 Flow Rate FiO2 03/09/17 14:45 98.6 84 18 125/80 99 Orders Albuterol Hfa Inh (Proair Hfa Inh) (03/09/17 16:45) Budeson-Formot 80-4.5 Mcg Inh (Symbicort (03/09/17 16:45) MDM Medical Decision Making Medical Screen Exam Complete: Yes Emergency Medical Condition: Yes Medical Record Reviewed: Yes Differential Diagnosis Medication refill, medical clearance, asthma exacerbation Narrative Course 61-year-old homeless male with history of asthma requesting Symbicort and Ventolin inhalers to be sent home with. Ran out of his inhalers 2 days ago. Reviewed his records and he has multiple visits for asthma exacerbation. Patient is in no acute distress and without retractions or tachypnea. Lungs are clear and equal bilaterally. I will provide the patient was Symbicort and Ventolin inhalers for home. Orders entered. Instructed patient to follow up with primary care provider. Patient verbalizes understanding and agreement with treatment plan. Patient is medically cleared and stable for discharge. Discussed reasons to return to the emergency department. Patient agrees with treatment plan. The patients vital signs are stable and the patient is stable for outpatient follow-up and treatment. Patient discharged home, stable and in no acute distress. Diagnosis Primary Impression: Medication refill Referrals: Primary Care Physician Patient Instructions: General Instructions, Medication Refill, ED Additional Instructions: Follow-up with primary care provider Return to the emergency department immediately if worsening of symptoms Med/Other Pt SpecificInfo: Prescription(s) given Disposition: 01 DISCHARGE HOME Condition: Stable Dasia Fox [facility] Mar 09, 2017 16:29
[2017-03-09] MEDS ORDERED: BUDESONIDE-FORMOTEROL 80/4.5 MCG INHALER INH ONE (16:45)
[2017-03-09] MEDS ORDERED: ALBUTEROL SULFATE 90 MCG/ACT HFA 8 GM INHALER INH ONE (16:45)
== END 2017-03-09 17:40 | disposition home or self-care (01) ==
LOC: NEPK 14:43
DX: Z76.0 Encounter for issue of repeat prescription (principal); J45.909 Unspecified asthma, uncomplicated; J44.9 Chronic obstructive pulmonary disease, unspecified; E78.00 Pure hypercholesterolemia, unspecified; R16.0 Hepatomegaly, not elsewhere classified; M41.9 Scoliosis, unspecified; Z59.0 Homelessness; Z79.899 Other long term (current) drug therapy
CPT/HCPCS: 99281

== ENCOUNTER 2017-04-15 16:12 | Emergency (ER) | payer MEDICAID ==
[~2017-04-15] VITALS: Ht 172.7 cm; Wt 79.5 kg
[~2017-04-15 16:12] MED LIST changes: -SYMB80AE INH; -VENTAER INH
[2017-04-15 16:13] VITALS: BP 109/57; PULSE 64; RESP 16; TEMP 98.7; O2SAT 97
[2017-04-15] MEDS ORDERED: VENTAER INH (17:00)
[2017-04-15] MEDS ORDERED: SYMB160A INH (17:00)
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
== END 2017-04-15 17:31 | disposition home or self-care (01) ==
LOC: NEPK 16:12
DX: Z76.0 Encounter for issue of repeat prescription (principal); J44.9 Chronic obstructive pulmonary disease, unspecified; Y09 Assault by unspecified means
CPT/HCPCS: 99281

== ENCOUNTER 2017-04-26 16:13 | Inpatient (IN) | payer MEDICAID ==
[~2017-04-26] VITALS: Ht 172.7 cm; Wt 80.0 kg
[~2017-04-26 16:13] MED LIST changes: +SYMB160A INH; +VENTAER INH
[2017-04-26 16:15] VITALS: BP 123/67; PULSE 100; RESP 24; TEMP 101.3; O2SAT 95
[2017-04-26] MEDS ORDERED: VANCOMYCIN INJ 1,000 MG in SODIUM CHLOR 0.9% 250 ML INJ 250 ML IV STA (17:34)
[2017-04-26] MEDS ORDERED: AZTREONAM INJ 2,000 MG in SODIUM CHLORIDE 0.9% INJ 100 ML IV STA (17:34)
[2017-04-26] MEDS ORDERED: IBUPROFEN 800 MG TAB PO ONE (17:45)
[2017-04-26] MEDS ORDERED: SODIUM CHLOR 0.9% 1000 ML INJ 1,000 ML IV ONE ×2 (17:45→19:30)
--- NOTE | 2017-04-26 17:45 | PD ---
HPI Chief Complaint: Skin Problem Time Seen by Provider: 17:33 Travel History International Travel<30 days: No Contact w/Intl Traveler<30days: No Traveled to known affect area: No History of Present Illness HPI Patient comes in complaining of cellulitis in his left lower extremity began approximately a week ago. Patient complaining of pain and swelling in the left lower extremity that is getting worse for the past 5 days. Pain is pressure- like in nature without radiation. Patient states that he tried taking hydrocodone which he normally takes for his back pain last dose 5 days ago. Patient denies any history of IV drug use. Patient denies doing anything for this. Denies any known fevers, chest pain, shortness of breath, nausea or vomiting, numbness tingling anywhere. Pain is worse with walking and palpating the leg. Denies any known trauma. PFSH Past Medical History Hx Anticoagulant Therapy: No Asthma: Yes Heart Rhythm Problems: No Cardiac Catheterization: No Cardiomyopathy: Yes Cardiovascular Problems: Yes High Cholesterol: Yes Chemotherapy: No Congestive Heart Failure: No COPD: Yes Cerebrovascular Accident: No Diabetes: No Diminished Hearing: No Gastrointestinal Disorders: Yes (ENLARGED LIVER) Heparin Induced Thrombocytopen: No Hypertension: No Musculoskeletal: Yes (SCOLIOSIS;CHRONIC BACK PAIN) Neurologic: No Respiratory: Yes (ASTHMA) Immunizations Current: Yes Pneumonia: Yes Past Surgical History Coronary Artery Bypass Graft: No Tonsillectomy: Yes ( A CHILD) Social History Alcohol Use: Yes Tobacco Use: Yes Substance Use: No Allergies-Medications (Allergen,Severity, Reaction): Coded Allergies: clindamycin (Unverified Allergy, Severe, Fatigue, 04/26/17) ipratropium (Unverified Allergy, Severe, CHEST PAIN, 04/26/17) propoxyphene (Unverified Allergy, Severe, NAUSEA, 04/26/17) ampicillin (Unverified Adverse Reaction, Severe, STATES MADE ABDOMEN UPTIGHT, 04/26/17) sulbactam (Unverified Adverse Reaction, Severe, STATES MADE ABDOMEN UPTIGHT, 04/26/17) levofloxacin (Unverified Adverse Reaction, Intermediate, Nausea/Vomiting, 04/26/17) penicillin G (Unverified Adverse Reaction, Intermediate, NAUSEA, 04/26/17) sulfamethoxazole (Unverified Adverse Reaction, Intermediate, 04/26/17) ABD PAIN trimethoprim (Unverified Adverse Reaction, Intermediate, 04/26/17) ABD PAIN Reported Meds & Prescriptions Reported Meds & Active Scripts Active Symbicort Inh (Budesonide/Formoterol Fumarate) 160-4.5 Mcg/Act Aero 1 Puff INH Q12HR Ventolin Hfa 18 GM Inh (Albuterol Sulfate) 90 Mcg/Act Aer 2 Puff INH Q4-6H PRN Hydrocodone-Acetaminophen 10-325 mg Tab 1 Tab PO Q6H PRN Review of Systems Except as stated in HPI: all other systems reviewed are Neg Physical Exam Narrative GENERAL: Well-developed, well nourished, in no acute distress, and non-ill appearing. SKIN: Multiple pustular lesions noted left lower extremity and left hand. Lesions are suspicious for possible impetigo. Left lower extremity is 2+ edema and erythematous. Is febrile to palpation. There is no induration fluctuation noted. HEAD: Atraumatic. Normocephalic. EYES: Pupils equal and round. EOMI. No scleral icterus. No injection or drainage. ENT: No nasal bleeding or discharge. Mucous membranes pink and moist. NECK: Trachea midline. Supple. No nuclear rigidity. CARDIOVASCULAR: Regular rate and rhythm. No murmur appreciated. RESPIRATORY: No accessory muscle use. No respiratory distress. Clear to auscultation. Breath sounds equal bilaterally. MUSCULOSKELETAL: No obvious deformities. No clubbing. No cyanosis. No edema. Full range of motion. NEUROLOGICAL: Awake and alert. No obvious cranial nerve deficits. Motor grossly within normal limits. Normal speech. PSYCHIATRIC: Appropriate mood and affect; insight and judgment normal. Data Data Last Documented VS Vital Signs Date Time Temp Pulse Resp B/P (MAP) Pulse Ox O2 Delivery O2 Flow Rate FiO2 04/26/17 18:05 88 18 130/59 (82) 97 Room Air 04/26/17 16:15 101.3 Orders Orders Electrocardiogram (04/26/17 17:34) Complete Blood Count With Diff (04/26/17 17:34) Comprehensive Metabolic Panel (04/26/17 17:34) Prothrombin Time / Inr (Pt) (04/26/17 17:34) Act Partial Throm Time (Ptt) (04/26/17 17:34) Lactic Acid Sepsis Protocol (04/26/17 17:34) Urinalysis - C+S If Indicated (04/26/17 17:34) Blood Culture (04/26/17 17:34) Wound Culture And Gram Stain (04/26/17 17:34) Chest, Single Ap (04/26/17 17:34) Blood Glucose (04/26/17 17:34) Ecg Monitoring (04/26/17 17:34) Iv Access Insert/Monitor (04/26/17 17:34) Oximetry (04/26/17 17:34) Oxygen Administration (04/26/17 17:34) Vancomycin Inj (Vancomycin Inj) (04/26/17 17:34) Aztreonam Inj (Azactam Inj) (04/26/17 17:34) Ibuprofen (Motrin) (04/26/17 17:45) Sodium Chlor 0.9% 1000 Ml Inj (Ns 1000 M (04/26/17 17:45) Us Leg Venous Doppler (04/26/17 17:38) Sodium Chlor 0.9% 1000 Ml Inj (Ns 1000 M (04/26/17 19:30) Admit Order (Ed Use Only) (04/26/17 19:44) Acetaminophen (Tylenol) (04/26/17 19:45) Labs Laboratory Tests Test 04/26/17 18:10 04/26/17 18:15 04/26/17 18:55 White Blood Count 14.1 TH/MM3 Red Blood Count 4.63 MIL/MM3 Hemoglobin 13.9 GM/DL Hematocrit 41.9 % Mean Corpuscular Volume 90.7 FL Mean Corpuscular Hemoglobin 30.0 PG Mean Corpuscular Hemoglobin Concent 33.1 % Red Cell Distribution Width 12.5 % Platelet Count 141 TH/MM3 Mean Platelet Volume 7.6 FL Neutrophils (%) (Auto) 91.0 % Lymphocytes (%) (Auto) 2.9 % Monocytes (%) (Auto) 4.7 % Eosinophils (%) (Auto) 1.0 % Basophils (%) (Auto) 0.4 % Neutrophils # (Auto) 12.9 TH/MM3 Lymphocytes # (Auto) 0.4 TH/MM3 Monocytes # (Auto) 0.7 TH/MM3 Eosinophils # (Auto) 0.1 TH/MM3 Basophils # (Auto) 0.1 TH/MM3 CBC Comment DIFF FINAL Differential Comment Prothrombin Time 11.1 SEC Prothromb Time International Ratio 1.0 RATIO Activated Partial Thromboplast Time 29.7 SEC Blood Urea Nitrogen 8 MG/DL Creatinine 0.87 MG/DL Random Glucose 112 MG/DL Total Protein 7.0 GM/DL Albumin 3.1 GM/DL Calcium Level 8.2 MG/DL Alkaline Phosphatase 92 U/L Aspartate Amino Transf (AST/SGOT) 25 U/L Alanine Aminotransferase (ALT/SGPT) 19 U/L Total Bilirubin 2.4 MG/DL Sodium Level 136 MEQ/L Potassium Level 3.8 MEQ/L Chloride Level 103 MEQ/L Carbon Dioxide Level 25.7 MEQ/L Anion Gap 7 MEQ/L Estimat Glomerular Filtration Rate 89 ML/MIN Lactic Acid Level 1.7 mmol/L Urine Color YELLOW Urine Turbidity CLEAR Urine pH 7.5 Urine Specific [place] 1.022 Urine Protein 30 mg/dL Urine Glucose (UA) NEG mg/dL Urine Ketones 10 mg/dL Urine Occult Blood TRACE Urine Nitrite NEG Urine Bilirubin NEG Urine Urobilinogen GREATER THAN 12.0 MG/DL Urine Leukocyte Esterase NEG Urine RBC 4 /hpf Urine WBC 1 /hpf Urine Mucus FEW /lpf Microscopic Urinalysis Comment CATH-CULT NOT IND MDM Medical Decision Making Medical Screen Exam Complete: Yes Emergency Medical Condition: Yes Interpretation(s) Chest x-ray read by the radiologist shows: 1. No acute cardiopulmonary disease. 2. Degenerative changes and scoliosis of the thoracolumbar spine. Ultrasound left lower extremity read by the radiologist shows: 1. Non-occlusive deep venous thrombosis within the left common femoral vein. 2. Left inguinal lymphadenopathy which is nonspecific. Differential Diagnosis Sepsis, cellulitis, electrolyte abnormality, abscess, DVT, other Narrative Course Patient was seen and examined. IV was established. Patient was placed on diagnostic cardiac sonographer. IV antibiotics, IV fluid, and ibuprofen were ordered. Initial laboratory studies were ordered. Patient was reassessed no longer be tachycardic and resting comfortably in bed. Discussed all findings and plan care of with patient, who is agreeable for admission. All questions were answered. Patient reportedly told the nurse that he cannot take ibuprofen as he is allergic to medications switched to Tylenol for his fever. Discussed patient with Dr. Zhang, is under plan of care and disposition. Recommends talking to the admitting physician prior to starting anticoagulants. Discussed patient with residents aeronautical engineering officer, who are agreeable to admit the patient. Sepsis Criteria SIRS Criteria (2 or more): Temp > 100.9 or < 96.8, Heart rate over 90, WBC > 41455, < 4000 or > 10% bands Sepsis Criteria (SIRS+source): Infect source susp/known Physician Communication Physician Communication [address] Darling, resident aeronautical engineering officer for Dr. Smith, who is agreeable to admit the patient and recommends holding anticoagulants until they evaluate the patient. Diagnosis Primary Impression: Sepsis Qualified Codes: A41.9 - Sepsis, unspecified organism Additional Impressions: Cellulitis Qualified Codes: L03.116 - Cellulitis of left lower limb DVT (deep venous thrombosis) Qualified Codes: I82.412 - Acute embolism and thrombosis of left femoral vein Admitting Information Admitting Physician Requests: Admit Condition: Stable Kyle Flor Apr 26, 2017 17:45
[2017-04-26 18:05] VITALS: BP 130/59; PULSE 88; RESP 18; O2SAT 97
--- NOTE | 2017-04-26 18:15 | RADRPT ---
EXAM DATE/TIME: 04/26/2017 17:58 [facility] COMPARISON: CHEST SINGLE AP, September 05, 2016, 19:06. INDICATIONS : Chest pain and shortness of breath. MEDICAL HISTORY : Hypercholesterolemia. Chronic obstructive pulmonary disease. Cardiomyopathy. SURGICAL HISTORY : Tonsillectomy. ENCOUNTER: Initial ACUITY: 1 day PAIN SCORE: 6/10 LOCATION: Bilateral upper chest FINDINGS: The heart is stable. The pulmonary vascular pattern is normal. The lungs are clear. Degenerative c hanges and scoliosis of the thoracolumbar spine are noted. CONCLUSION: 1. No acute cardiopulmonary disease. 2. Degenerative changes and scoliosis of the thoracolumbar spine. Asa Cruz MD on April 26, 2017 at 18:10 Board Certified Radiologist. This report was verified electronically.
[2017-04-26 18:56] LABS: AUTOMATED NEUTROPHIL # 12.9 TH/MM3 (1.8-7.7); BASOPHIL # 0.1 TH/MM3 (0-0.2); BASOPHIL % 0.4 % (0.0-2.0); EOSINOPHIL # 0.1 TH/MM3 (0-0.4); HEMATOCRIT 41.9 % (39.0-51.0); HEMO FLAGS DIFF FINAL; LYMPH % 2.9 % (9.0-44.0); LYMPHOCYTE # 0.4 TH/MM3 (1.0-4.8); MEAN CELL VOLUME 90.7 FL (80.0-100.0); MEAN CORPUSCULAR HGB CONC 33.1 % (32.0-36.0); MONO % 4.7 % (0.0-8.0); PLATELET COUNT 141 TH/MM3 (150-450); RED BLOOD COUNT 4.63 MIL/MM3 (4.50-5.90); RED CELL DISTRIBUTION WIDTH 12.5 % (11.6-17.2); WHITE BLOOD COUNT 14.1 TH/MM3 (4.0-11.0)
--- NOTE | 2017-04-26 18:57 | RADRPT ---
EXAM DATE/TIME: 04/26/2017 18:19 [facility] COMPARISON: No previous studies available for comparison. INDICATIONS : Left leg edema. MEDICAL HISTORY : Hypercholesterolemia. Chronic obstructive pulmonary disease. Cardiomyopathy. Asthma. Enlarged l iver. Scoliosis. SURGICAL HISTORY : Tonsillectomy. ENCOUNTER: Subsequent ACUITY: 1 week PAIN SCORE: 7/10 LOCATION: Left leg. TECHNIQUE: Venous ultrasound of the leg was performed from the inguinal ligament to the proximal calf. Real-migue e, color Doppler and spectral tracing, compression and augmentation techniques were used. FINDINGS: There is partial compressibility and Doppler color flow within the left common femoral vein suggestin g non-occlusive deep venous thrombosis. There is normal color flow within the left superficial femor al, popliteal, peroneal and posterior tibial veins. Normal color flow is also noted within the great er saphenous vein. Multiple mildly enlarged left inguinal lymph nodes are noted with the largest johana suring 5.6 x 2.2 x 1.4 cm. These are nonspecific. CONCLUSION: 1. Non-occlusive deep venous thrombosis within the left common femoral vein. 2. Left inguinal lymphadenopathy which is nonspecific. Asa Cruz MD on April 26, 2017 at 18:50 Board Certified Radiologist. This report was verified electronically.
[2017-04-26 19:07] LABS: APTT (PATIENT) 29.7 SEC (24.3-30.1); PROTHROMBIN TIME - PATIENT 11.1 SEC (9.8-11.6)
[2017-04-26 19:11] LABS: ALT (GPT) 19 U/L (12-78)
[2017-04-26 19:13] LABS: ALKALINE PHOSPHATASE 92 U/L (45-117); TOTAL BILIRUBIN ADULT 2.4 MG/DL (0.2-1.0)
[2017-04-26 19:17] LABS: ANION GAP 7 MEQ/L (5-15); AST (GOT) 25 U/L (15-37); BICARBONATE 25.7 MEQ/L (21.0-32.0); BLOOD UREA NITROGEN 8 MG/DL (7-18); CHLORIDE 103 MEQ/L (98-107); GLOMERULAR FILTRATION RATE 89 ML/MIN (>89); SODIUM (NA) 136 MEQ/L (136-145)
[2017-04-26 19:18] LABS: POTASSIUM 3.8 MEQ/L (3.5-5.1)
--- NOTE | 2017-04-26 19:25 | PD ---
Data Data Last Documented VS Vital Signs Date Time Temp Pulse Resp B/P (MAP) Pulse Ox O2 Delivery O2 Flow Rate FiO2 04/26/17 18:05 88 18 130/59 (82) 97 Room Air 04/26/17 16:15 101.3 Orders Orders Electrocardiogram (04/26/17 17:34) Complete Blood Count With Diff (04/26/17 17:34) Comprehensive Metabolic Panel (04/26/17 17:34) Prothrombin Time / Inr (Pt) (04/26/17 17:34) Act Partial Throm Time (Ptt) (04/26/17 17:34) Lactic Acid Sepsis Protocol (04/26/17 17:34) Urinalysis - C+S If Indicated (04/26/17 17:34) Blood Culture (04/26/17 17:34) Wound Culture And Gram Stain (04/26/17 17:34) Chest, Single Ap (04/26/17 17:34) Blood Glucose (04/26/17 17:34) Ecg Monitoring (04/26/17 17:34) Iv Access Insert/Monitor (04/26/17 17:34) Oximetry (04/26/17 17:34) Oxygen Administration (04/26/17 17:34) Vancomycin Inj (Vancomycin Inj) (04/26/17 17:34) Aztreonam Inj (Azactam Inj) (04/26/17 17:34) Ibuprofen (Motrin) (04/26/17 17:45) Sodium Chlor 0.9% 1000 Ml Inj (Ns 1000 M (04/26/17 17:45) Us Leg Venous Doppler (04/26/17 17:38) Labs Laboratory Tests Test 04/26/17 18:10 04/26/17 18:15 04/26/17 18:55 White Blood Count 14.1 TH/MM3 Red Blood Count 4.63 MIL/MM3 Hemoglobin 13.9 GM/DL Hematocrit 41.9 % Mean Corpuscular Volume 90.7 FL Mean Corpuscular Hemoglobin 30.0 PG Mean Corpuscular Hemoglobin Concent 33.1 % Red Cell Distribution Width 12.5 % Platelet Count 141 TH/MM3 Mean Platelet Volume 7.6 FL Neutrophils (%) (Auto) 91.0 % Lymphocytes (%) (Auto) 2.9 % Monocytes (%) (Auto) 4.7 % Eosinophils (%) (Auto) 1.0 % Basophils (%) (Auto) 0.4 % Neutrophils # (Auto) 12.9 TH/MM3 Lymphocytes # (Auto) 0.4 TH/MM3 Monocytes # (Auto) 0.7 TH/MM3 Eosinophils # (Auto) 0.1 TH/MM3 Basophils # (Auto) 0.1 TH/MM3 CBC Comment DIFF FINAL Differential Comment Prothrombin Time 11.1 SEC Prothromb Time International Ratio 1.0 RATIO Activated Partial Thromboplast Time 29.7 SEC Blood Urea Nitrogen 8 MG/DL Creatinine 0.87 MG/DL Random Glucose 112 MG/DL Total Protein 7.0 GM/DL Albumin 3.1 GM/DL Calcium Level 8.2 MG/DL Alkaline Phosphatase 92 U/L Aspartate Amino Transf (AST/SGOT) 25 U/L Alanine Aminotransferase (ALT/SGPT) 19 U/L Total Bilirubin 2.4 MG/DL Sodium Level 136 MEQ/L Potassium Level 3.8 MEQ/L Chloride Level 103 MEQ/L Carbon Dioxide Level 25.7 MEQ/L Anion Gap 7 MEQ/L Estimat Glomerular Filtration Rate 89 ML/MIN Lactic Acid Level 1.7 mmol/L MDM Supervised Visit with YUMIKO: Yes Narrative Course The history, exam, and medical decision-making in the associated mid-level provider note were completed with my assistance. I reviewed and agree with the findings presented. I attest that I had a [id number] encounter with the patient on the same day, and personally performed and documented my assessment and findings in the medical record. *My assessment and Findings: 61-year-old man appears to have purulent impetigo, now with worsening infection with edema and cellulitis. He has tachycardia and low-grade fevers. He also has a nonocclusive thrombus. We'll admit him for nonocclusive DVT in cellulitis with early sepsis. Soy Zhang MD Apr 26, 2017 19:25
[2017-04-26 19:45] LABS: BLOOD, URINE TRACE (NEG); COMMENT (UR) CATH-CULT NOT IND; CULTURE IF INDICATED CATH CULTURE NOT IND; GLUCOSE,URINE NEG (NEG); KETONE, URINE 10 mg/dL (NEG); MUCUS URINE FEW /lpf (OCC); NITRITE,URINE NEG (NEG); PH, URINE 7.5 (5.0-8.5); URINE COLOR YELLOW (YELLW/STRAW)
[2017-04-26] MEDS ORDERED: ACETAMINOPHEN 325 MG TAB PO ONE (19:45)
[2017-04-26] MEDS ORDERED: SODIUM CHLOR 0.9% 1000 ML INJ 1,000 ML IV SCH (20:41)
[2017-04-26] MEDS ORDERED: SODIUM CHLORIDE 0.9% FLUSH 10 ML FLUSH IV FLUSH PRN ×2 (20:45→21:15)
--- NOTE | 2017-04-26 20:56 | HHI.HP ---
[facility] Service Family Medicine Primary Care Physician Job Cunningham D.O. Admission Diagnosis sepsis, cellulitis, DVT Diagnoses: International Travel<30 Days: No Contact w/Intl Traveler<30days: No Known Affected Area: No History of Present Illness Mr. Little is a 61 y/o M with history of asthma and chronic back pain presenting with left lower extremity erythema and pustular formation. Patient states that he first noticed his left lower extremity becoming painful with "green heads" approximately one week ago. Since that time he has had increased pain and currently reports his pain at a 10/10 on the pain scale. He endorses subjective fevers, erythema of the left lower extremity, drainage of purulent materials from the "green heads", and the extremity has been warm to the touch. He reports that his range of motion and sensation are intact throughout the lower extremity. He has a history of prior skin infections over the last 4 years, but is unaware if any were diagnosed as MRSA. When asked what could have caused his left lower extremity lesions, the patient states that "he thinks that someone did this to him, and is putting building materials around him to get on a scan in order to infect him." Otherwise he has no complaints and denies any chest pain, shortness of breath, abdominal pain, or calf tenderness. (Derek Darling MD R2) Review of Systems ROS Limitations: Poor Historian Constitutional: COMPLAINS OF: Fever (subjective ), Chills, Dizziness Eyes: DENIES: Diplopia Respiratory: COMPLAINS OF: Cough, Sputum production (clear ), Shortness of breath Cardiovascular: DENIES: Chest pain Gastrointestinal: COMPLAINS OF: Abdominal pain, DENIES: Constipation, Diarrhea , Nausea, Vomiting Genitourinary: COMPLAINS OF: Dysuria Integumentary: DENIES: Rash Hematologic/lymphatic: DENIES: Lymphadenopathy Neurologic: COMPLAINS OF: Headache Psychiatric: COMPLAINS OF: Mood changes, DENIES: Hallucinations, Delusions ( Derek Darling MD R2) Past Family Social History Past Medical History Asthma Chronic Back Pain Past Surgical History Denies surgical history (Derek Darling MD R2) Allergies: Coded Allergies: clindamycin (Unverified Allergy, Severe, Fatigue, 04/26/17) ipratropium (Unverified Allergy, Severe, CHEST PAIN, 04/26/17) propoxyphene (Unverified Allergy, Severe, NAUSEA, 04/26/17) ampicillin (Unverified Adverse Reaction, Severe, STATES MADE ABDOMEN UPTIGHT, 04/26/17) sulbactam (Unverified Adverse Reaction, Severe, STATES MADE ABDOMEN UPTIGHT, 04/26/17) levofloxacin (Unverified Adverse Reaction, Intermediate, Nausea/Vomiting, 04/26/17) penicillin G (Unverified Adverse Reaction, Intermediate, NAUSEA, 04/26/17) sulfamethoxazole (Unverified Adverse Reaction, Intermediate, 04/26/17) ABD PAIN trimethoprim (Unverified Adverse Reaction, Intermediate, 04/26/17) ABD PAIN Family History Mother - tobacco abuse, [place], CHF Father - tobacco abuse Brother - congenital heart disease, CHF Social History 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 Lives in [place] in an apartment by himself. Tobacco - denies use, endorses second hand smoke Alcohol - occasionally, last used 2 months ago, no history of withdrawal Illicit - Denies history (Derek Darling MD R2) Physical Exam Vital Signs Vital Signs Date Time Temp Pulse Resp B/P (MAP) Pulse Ox O2 Delivery O2 Flow Rate FiO2 04/26/17 18:05 88 18 130/59 (82) 97 Room Air 04/26/17 16:15 101.3 100 24 123/67 (85) 95 Room Air Physical Exam GENERAL: Well-nourished, well-developed male lying in bed watching TV in no acute distress. SKIN: Warm and dry. No rash. Left lower extremity: Large area of erythema with numerous yellow/green pustules surrounding chapin and calf of the extremity circumferentially. Multiple small areas of purulent drainage without hemorrhage. Erythema outlined by surgical pen. Patient is moderately tender to palpation. 2+ popliteal, DP, and PT pulses with normal sensation and range of motion. Nontender groin lymphadenopathy appreciated. 2+ edema of RLE. HEENT: Atraumatic, normocephalic with EOMI. Pupils myotic and not reactive to light currently. Oropharynx clear without erythema or exudate. MMM. No rhinorrhea. No LAD, JVD, or thyroid abnormality. CARDIOVASCULAR: Tachycardic rate with regular rhythm. 2/6 systolic ejection murmur heard loudest at the left sternal border appreciated. 2+ pulses in all 4 extremities. RESPIRATORY: Clear to auscultation bilaterally with no CRW. No increased work of breathing. GASTROINTESTINAL: Abdomen soft, non-tender, nondistended with positive bowel sounds. No masses appreciated. MUSCULOSKELETAL: No cyanosis. Strength grossly WNL. 2+ pulses in all 4 extremities. Please see as above for left lower extremity. BACK: Nontender without obvious deformity. No CVA tenderness. NEURO/PSYCH: Afocal. AAO 3. Patient with delusion that someone put "building material" near him in order to cause his cellulitis. He denies any hallucinations or delusions. Normal speech. Laboratory Laboratory Tests Test 04/26/17 18:10 04/26/17 18:15 04/26/17 18:55 White Blood Count 14.1 Red Blood Count 4.63 Hemoglobin 13.9 Hematocrit 41.9 Mean Corpuscular Volume 90.7 Mean Corpuscular Hemoglobin 30.0 Mean Corpuscular Hemoglobin Concent 33.1 Red Cell Distribution Width 12.5 Platelet Count 141 Mean Platelet Volume 7.6 Neutrophils (%) (Auto) 91.0 Lymphocytes (%) (Auto) 2.9 Monocytes (%) (Auto) 4.7 Eosinophils (%) (Auto) 1.0 Basophils (%) (Auto) 0.4 Neutrophils # (Auto) 12.9 Lymphocytes # (Auto) 0.4 Monocytes # (Auto) 0.7 Eosinophils # (Auto) 0.1 Basophils # (Auto) 0.1 CBC Comment DIFF FINAL Differential Comment Prothrombin Time 11.1 Prothromb Time International Ratio 1.0 Activated Partial Thromboplast Time 29.7 Blood Urea Nitrogen 8 Creatinine 0.87 Random Glucose 112 Total Protein 7.0 Albumin 3.1 Calcium Level 8.2 Alkaline Phosphatase 92 Aspartate Amino Transf (AST/SGOT) 25 Alanine Aminotransferase (ALT/SGPT) 19 Total Bilirubin 2.4 Sodium Level 136 Potassium Level 3.8 Chloride Level 103 Carbon Dioxide Level 25.7 Anion Gap 7 Estimat Glomerular Filtration Rate 89 Lactic Acid Level 1.7 Urine Color YELLOW Urine Turbidity CLEAR Urine pH 7.5 Urine Specific [place] 1.022 Urine Protein 30 Urine Glucose (UA) NEG Urine Ketones 10 Urine Occult Blood TRACE Urine Nitrite NEG Urine Bilirubin NEG Urine Urobilinogen GREATER THAN 12.0 Urine Leukocyte Esterase NEG Urine RBC 4 Urine WBC 1 Urine Mucus FEW Microscopic Urinalysis Comment CATH-CULT NOT IND Date/Time Source Procedure Growth Status 04/26/17 18:15 Blood Peripheral Aerobic Blood Culture Pending Received 04/26/17 18:15 Blood Peripheral Anaerobic Blood Culture Pending Received 04/26/17 18:10 Wound Leg Gram Stain Pending Received 04/26/17 18:10 Wound Leg Wound Culture Pending Received (Derek Darling MD R2) Result Diagram: 04/26/17180904/26/171809 Caprini VTE Risk Assessment Caprini VTE Risk Assessment: Mod/High Risk (score >= 2) Caprini Risk Assessment Model Point Value = 1 Point Value = 2 Point Value = 3 Point Value = 5 Age 41-60 Minor surgery BMI > 25 kg/m2 Swollen legs Varicose veins or History of unexplained or recurrent spontaneous Oral contraceptives or hormone replacement Sepsis (< 1 month) Serious lung disease, including pneumonia (< 1 month) Abnormal pulmonary function Acute myocardial infarction Congestive heart failure (< 1 month) History of inflammatory bowel disease Medical patient at bed rest Age 61-74 Arthroscopic surgery Major open surgery (> 45 min) Laparoscopic surgery (> 45 min) Malignancy Confined to bed (> 72 hours) Immobilizing plaster cast Central venous access Age >= 75 History of VTE Family history of VTE Factor V Leiden Prothrombin [id number] Lupus anticoagulant Anticardiolipin antibodies Elevated serum homocysteine Heparin-induced thrombocytopenia Other congenital or acquired thrombophilia Stroke (< 1 month) Elective arthroplasty Hip, pelvis, or leg fracture Acute spinal cord injury (< 1 month) Prophylaxis Regimen Total Risk Factor Score Risk Level Prophylaxis Regimen 0-1 Low Early ambulation 2 Moderate Order ONE of the following: *Sequential Compression Device (SCD) *Heparin 5000 units SQ BID 3-4 Higher Order ONE of the following medications: *Heparin 5000 units SQ TID *Enoxaparin/Lovenox 40 mg SQ daily (WT < 150 kg, CrCl > 30 mL/min) *Enoxaparin/Lovenox 30 mg SQ daily (WT < 150 kg, CrCl > 10-29 mL/min) *Enoxaparin/Lovenox 30 mg SQ BID (WT < 150 kg, CrCl > 30 mL/min) AND/OR *Sequential Compression Device (SCD) 5 or more Highest Order ONE of the following medications: *Heparin 5000 units SQ TID (Preferred with Epidurals) *Enoxaparin/Lovenox 40 mg SQ daily (WT < 150 kg, CrCl > 30 mL/min) *Enoxaparin/Lovenox 30 mg SQ daily (WT < 150 kg, CrCl > 10-29 mL/min) *Enoxaparin/Lovenox 30 mg SQ BID (WT < 150 kg, CrCl > 30 mL/min) AND *Sequential Compression Device (SCD) (Derek Darling MD R2) Assessment and Plan Assessment and Plan Mr. Little is a 61 y/o M with history of asthma and chronic back pain presenting with left lower extremity erythema and pustular formation due to cellulitis of his left lower extremity. Code Status Full code Discussed Condition With Mr. Flor, MILLIE Salazar (Derek Darling MD R2) Attending Attestation Patient seen and examined. Case reviewed and discussed with the resident team. Agree with plan of care as discussed with me and documented in the resident note. saw pt in the ED. agree with admission and treatment of DVT and cellulitis. see note for details (Nelly Smith MD) Problem List: (1) Cellulitis ICD Codes: L03.90 - Cellulitis, unspecified Status: Acute Plan: Patient presenting with extensive cellulitis of the left lower extremity from the knee to the ankle. -Chest x-ray: No acute disease, degenerative changes and scoliosis of the thoracolumbar spine -Left lower extremity ultrasound: Nonocclusive deep venous thrombosis within the left common femoral vein. Left inguinal lymphadenopathy which is nonspecific. -CBC: 14.1 with 91% neutrophils -CMP: Within normal limits -Lactic acid 1.7 -Blood cultures: Pending -Urine culture: Pending Medications: -2 L normal saline, aztreonam, and vancomycin given in ER -Vancomycin 1 g twice a day, consult pharmacy for dosage recommendations (04/27-) -Normal saline at 120 mL per hour -Tylenol when necessary for fever or pain. -Toradol when necessary for breakthrough pain (2) Sepsis ICD Codes: A41.9 - Sepsis, unspecified organism Status: Acute Plan: Please see plan as above Patient currently presenting to the emergency department with cellulitis as well as sepsis (fever, leukocytosis, with site of infection his left lower extremity cellulitis). Patient also found to have 2/6 systolic ejection murmur at the left sternal border. She denies any history of endocarditis or other gram-positive cellulitis. -Echocardiogram: Ordered -Please see plan as above (3) DVT (deep venous thrombosis) ICD Codes: I82.409 - Acute embolism and thrombosis of unspecified deep veins of unspecified lower extremity Status: Acute Plan: Patient found to have DVT of left lower extremity -Left lower extremity ultrasound: Nonocclusive deep venous thrombosis within the left common femoral vein. Left inguinal lymphadenopathy which is nonspecific. -Heparin Bolus with IV drip per protocol -SCD/TEDs (4) Nutrition, metabolism, and development symptoms ICD Codes: R63.8 - Other symptoms and signs concerning food and fluid intake Plan: -Diet: Regular as tolerated -Fluids: Normal saline at 120 mL per hour with heparin drip -Electrolytes: Within normal limits, continue to monitor -Prophylaxis: Tylenol when necessary for fever/pain with Toradol when necessary for breakthrough pain, Zofran when necessary for nausea/vomiting, and albuterol when necessary for shortness of breath -Drug screen: Pending -Alcohol level: Pending (Derek Darling MD R2) Physician Certification 2 Midnight Certification Type: Admission for Inpatient Services Order for Inpatient Services The services are ordered in accordance with Medicare regulations or non- Medicare payer requirements, as applicable. In the case of services not specified as inpatient-only, they are appropriately provided as inpatient services in accordance with the 2-midnight benchmark. Estimated LOS (days): 3 3 days is the estimated time the patient will need to remain in the hospital, assuming treatment plan goals are met and no additional complications. Post-Hospital Plan: Home (Derek Darling MD R2) Problem Qualifiers (1) Cellulitis: Qualified Codes: L03.116 - Cellulitis of left lower limb (2) Sepsis: Qualified Codes: A41.9 - Sepsis, unspecified organism (3) DVT (deep venous thrombosis): Qualified Codes: I82.412 - Acute embolism and thrombosis of left femoral vein Derek Darling MD R2 Apr 26, 2017 20:56 Nelly Smith MD Apr 27, 2017 12:50
[2017-04-26] MEDS ORDERED: SODIUM CHLORIDE 0.9% FLUSH 10 ML FLUSH IV FLUSH SCH (21:00)
[2017-04-26] MEDS ORDERED: Vancomycin Consult Pharmacy 1 EA OTHER SCH (21:15)
[2017-04-26] MEDS ORDERED: KETOROLAC TROMETHAMINE 30 MG/ML (IVP) VIAL IVP PRN (21:15)
[2017-04-26] MEDS ORDERED: ACETAMINOPHEN 500 MG CPLT PO PRN (21:15)
[2017-04-26] MEDS ORDERED: HEPARIN SODIUM - IV 10,000 UNITS/10 ML VIAL IV ONE (21:15)
[2017-04-26 22:00] VITALS: BP 106/57; PULSE 77; RESP 16; TEMP 100.3; O2SAT 97
--- NOTE | 2017-04-26 22:16 | EKG ---
Date Performed: 04/26/2017 Time Performed: 19:34:53 PTAGE: 61 years EKG: Sinus rhythm NORMAL ECG PREVIOUS TRACING : 09/13/2016 21.07 Compared to prior tracing no significant change DOCTOR: Alek Valverde Interpretating Date/Time 04/26/2017 22:14:57
[2017-04-26 22:37] VITALS: O2SAT 97
[2017-04-26] MEDS: HEPARIN-D5W 25,000 U/250 ML 250 ML IV PRN (22:58)
[2017-04-26] MEDS: SODIUM CHLOR 0.9% 1000 ML INJ 1,000 ML IV SCH (23:13)
[2017-04-26 23:39] VITALS: BP 127/68; PULSE 74; RESP 18; TEMP 98.7; O2SAT 98
[2017-04-27] VITALS (7 sets, daily range): BP systolic 95–112; BP diastolic 50–62; PULSE 60–80; RESP 18–20; TEMP 97.8–103; O2SAT 95–98
[2017-04-27] MEDS ORDERED: RESP: ALBUTEROL 2.5 MG/3 ML NEB (PRN) INH (02:45)
[2017-04-27] MEDS ORDERED: ONDANSETRON HCL 4 MG/2 ML VIAL IV PUSH PRN (02:45)
[2017-04-27] MEDS: SODIUM CHLOR 0.9% 1000 ML INJ 1,000 ML IV SCH ×3 (05:19→22:11)
[2017-04-27 05:21] LABS: APTT (PATIENT) 48.5 SEC (24.3-30.1)
[2017-04-27 08:15] LABS: AUTOMATED NEUTROPHIL # 11.8 TH/MM3 (1.8-7.7); BASOPHIL # 0.1 TH/MM3 (0-0.2); BASOPHIL % 0.4 % (0.0-2.0); EOSINOPHIL % 0.1 % (0.0-4.0); HEMATOCRIT 35.4 % (39.0-51.0); HEMO FLAGS DIFF FINAL; LYMPH % 7.9 % (9.0-44.0); LYMPHOCYTE # 1.1 TH/MM3 (1.0-4.8); MEAN CELL VOLUME 90.1 FL (80.0-100.0); MEAN CORPUSCULAR HEMOGLOBIN 31.4 PG (27.0-34.0); MEAN CORPUSCULAR HGB CONC 34.9 % (32.0-36.0); NEUT % 85.6 % (16.0-70.0); PLATELET COUNT 105 TH/MM3 (150-450); RED BLOOD COUNT 3.93 MIL/MM3 (4.50-5.90); RED CELL DISTRIBUTION WIDTH 12.4 % (11.6-17.2); WHITE BLOOD COUNT 13.9 TH/MM3 (4.0-11.0)
[2017-04-27 08:22] LABS: BICARBONATE 26.3 MEQ/L (21.0-32.0); POTASSIUM 3.5 MEQ/L (3.5-5.1)
[2017-04-27] MEDS: SODIUM CHLORIDE 0.9% FLUSH 10 ML FLUSH IV FLUSH SCH ×2 (09:00→20:52)
[2017-04-27] MEDS: VANCOMYCIN INJ 1,000 MG in SODIUM CHLOR 0.9% 250 ML INJ 250 ML IV SCH ×2 (09:29→20:52)
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
--- NOTE | 2017-04-27 12:34 | ECHRPT ---
Indication: endocarditis CONCLUSIONS The left ventricular systolic function is mildly reduced with an estimated ejection fraction in the range of 45- 50%. Normal left ventricular size. Wall thickness is normal. [id number] mitral valve regurgitation. No aortic valve stenosis. No aortic valve regurgitation. There is mild tricuspid valve regurgitation. The pulmonary valve is not well visualized. BP: / HR: Rhythm: MEASUREMENTS (Male / Female) Normal Values Technical Quality:Good 2D ECHO LV Diastolic Diameter PLAX 4.8 cm 4.2 - 5.9 / 3.9 - 5.3 cm LV Systolic Diameter PLAX 3.8 cm IVS Diastolic Thickness 0.9 cm 0.6 - 1.0 / 0.6 - 0.9 cm LVPW Diastolic Thickness 1.0 cm 0.6 - 1.0 / 0.6 - 0.9 cm LV Relative Wall Thickness 0.4 RV Internal Dim ED PLAX 4.1 cm M-MODE Aortic Root Diameter MM 2.8 cm LA Systolic Diameter MM 3.1 cm LA Ao Ratio MM 1.1 AV Cusp Separation MM 2.4 cm DOPPLER Mitral E Point Velocity 52.8 cm/s Mitral A Point Velocity 71.6 cm/s Mitral E to A Ratio 0.7 LV E' Lateral Velocity 12.9 cm/s Mitral E to LV E' Lateral Ratio 4.1 LV E' Septal Velocity 7.8 cm/s Mitral E to LV E' Septal Ratio 6.8 TR Peak Velocity 225.0 cm/s TR Peak Gradient 20.3 mmHg FINDINGS LEFT VENTRICLE The left ventricular systolic function is mildly reduced with an estimated ejection fraction in the range of 45- 50%. Normal left ventricular size. Wall thickness is normal. RIGHT VENTRICLE Normal right ventricular size and systolic function. LEFT ATRIUM The left atrial size is normal. RIGHT ATRIUM The right atrial size is normal. ATRIAL SEPTUM Normal atrial septal thickness without atrial level shunting by limited color doppler interrogation. AORTA The aortic root and proximal ascending aorta are normal in size on limited imaging. MITRAL VALVE Structurally normal mitral valve. [id number] mitral valve regurgitation. AORTIC VALVE Trileaflet aortic valve. No aortic valve stenosis. No aortic valve regurgitation. TRICUSPID VALVE Structurally normal tricuspid valve. There is mild tricuspid valve regurgitation. PULMONARY VALVE The pulmonary valve is not well visualized. VESSELS The inferior vena cava is normal in size. PERICARDIUM No pericardial effusion. Edy Whitney MD (Electronically Signed) Final Date:27 April 2017 12:33
[2017-04-27 13:16] LABS: APTT (PATIENT) 46.2 SEC (24.3-30.1)
[2017-04-27] MEDS: WARFARIN SOD 5 MG TAB PO SCH (18:52)
[2017-04-27] MEDS: HEPARIN-D5W 25,000 U/250 ML 250 ML IV PRN (19:11)
[2017-04-27] MEDS: ALBUTEROL SULFATE 90 MCG/ACT HFA 8 GM INHALER INH PRN (21:15)
[2017-04-27 21:29] LABS: APTT (PATIENT) 39.9 SEC (24.3-30.1)
[2017-04-28] VITALS (8 sets, daily range): BP systolic 104–124; BP diastolic 54–67; PULSE 54–61; RESP 18–20; TEMP 98–99.1; O2SAT 95–99
[2017-04-28] MEDS: ALBUTEROL SULFATE 90 MCG/ACT HFA 8 GM INHALER INH PRN ×4 (04:26→23:52)
[2017-04-28 06:01] LABS: APTT (PATIENT) 48.3 SEC (24.3-30.1)
[2017-04-28] MEDS: SODIUM CHLOR 0.9% 1000 ML INJ 1,000 ML IV SCH ×2 (06:11→21:44)
[2017-04-28 07:50] LABS: AUTOMATED NEUTROPHIL # 7.3 TH/MM3 (1.8-7.7); BASOPHIL % 0.5 % (0.0-2.0); EOSINOPHIL # 0.3 TH/MM3 (0-0.4); EOSINOPHIL % 3.2 % (0.0-4.0); HEMO FLAGS DIFF FINAL; LYMPH % 11.4 % (9.0-44.0); LYMPHOCYTE # 1.1 TH/MM3 (1.0-4.8); MEAN CELL VOLUME 90.4 FL (80.0-100.0); MEAN CORPUSCULAR HEMOGLOBIN 30.7 PG (27.0-34.0); MONO % 7.5 % (0.0-8.0); NEUT % 77.4 % (16.0-70.0); PLATELET COUNT 117 TH/MM3 (150-450); RED BLOOD COUNT 3.88 MIL/MM3 (4.50-5.90); RED CELL DISTRIBUTION WIDTH 12.6 % (11.6-17.2); WHITE BLOOD COUNT 9.4 TH/MM3 (4.0-11.0)
[2017-04-28 08:01] LABS: APTT (PATIENT) 51.8 SEC (24.3-30.1); PROTHROMBIN TIME - PATIENT 11.5 SEC (9.8-11.6)
[2017-04-28 08:18] LABS: BICARBONATE 24.5 MEQ/L (21.0-32.0); POTASSIUM 3.5 MEQ/L (3.5-5.1)
[2017-04-28] MEDS ORDERED: PHARMACY ORDERED LAB ONE (08:45)
[2017-04-28] MEDS: SODIUM CHLORIDE 0.9% FLUSH 10 ML FLUSH IV FLUSH SCH ×2 (09:00→21:00)
[2017-04-28] MEDS: VANCOMYCIN INJ 1,000 MG in SODIUM CHLOR 0.9% 250 ML INJ 250 ML IV SCH (09:40)
--- NOTE | 2017-04-28 09:55 | HHI.FPPN ---
Subjective Remarks Patient seen and examined this morning by medical team. No acute events overnight per nursing staff. Patient remains hypotensive at baseline with low- dose blood pressure of 95/53 while on normal saline 120 mL per hour. Patient also bradycardic 2 54 bpm but remains asymptomatic at this time. He still endorses some bilateral lower extremity pain but today complains mainly of bilateral feet pain he states has been there for weeks. He denies any fevers, chills, shortness of breath, chest pain, NVD, abdominal pain, or calf tenderness. (Derek Darling MD R2) Objective Vitals Vital Signs Date Time Temp Pulse Resp B/P (MAP) Pulse Ox O2 Delivery O2 Flow Rate FiO2 04/28/17 08:09 98.2 54 19 107/64 (78) 98 04/28/17 04:19 99.1 57 18 105/54 (71) 98 04/28/17 00:14 98.0 57 18 104/59 (74) 97 04/27/17 21:05 98.4 67 18 98/50 (66) 97 04/27/17 16:23 97.8 60 18 96/53 (67) 97 04/27/17 12:30 97.9 65 20 95/53 (67) 97 I/O 04/27/17 04/27/17 04/27/17 04/28/17 04/28/17 04/28/17 06:59 14:59 22:59 06:59 14:59 22:59 Intake Total 250 ml 2518 ml 1000 ml Output Total 350 ml 1100 ml Balance -100 ml 1418 ml 1000 ml Intake Oral 250 ml 900 ml IV Total 1618 ml 1000 ml Output Urine Total 350 ml 1100 ml # Voids 2 # Bowel Movements 0 (Derek Darling MD R2) Result Diagram: 04/28/1733 04/28/1733 Objective Remarks GENERAL: Well-nourished, well-developed male lying in bed watching TV and eating breakfast in no acute distress. SKIN: Warm and dry. No rash. Left lower extremity: Large area of erythema with numerous yellow/green pustules surrounding chapin and calf of the extremity circumferentially. Erythema has improved since admission with pustules healing forming multiple eschars. Erythema at admission outlined by surgical pen. Currently nontender to palpation. 2+ popliteal, DP, and PT pulses with normal sensation and range of motion. 2+ edema. Foot on exam appears dry and cracking with no signs of ulceration or obvious infection. Right lower extremity: Large area of erythema increased from admission without pustules along the chapin of the right lower extremity. Increased warmth compared to the left lower extremity. Extremity has increased in size since admission with 2+ edema. Foot on exam appears dry and cracking with no signs of ulceration or obvious infection. HEENT: Atraumatic, normocephalic with EOMI. MMM. No rhinorrhea. No visible LAD or JVD appreciated. CARDIOVASCULAR: Regular rate and rhythm with 1/6 systolic ejection murmur most obvious at the left sternal border appreciated. 2+ pulses in all 4 extremities. RESPIRATORY: Clear to auscultation bilaterally with no CRW. No increased work of breathing. GASTROINTESTINAL: Abdomen soft, non-tender, nondistended with positive bowel sounds. No masses appreciated. MUSCULOSKELETAL: No cyanosis. Strength grossly WNL. 2+ pulses in all 4 extremities. Please see as above for lower extremities. NEURO/PSYCH: Afocal. AAO 3. Patient with delusion that someone put "building material" near him in order to cause his cellulitis at admission. He denies any hallucinations or delusions at this time. Normal speech. (Derek Darling MD R2) A/P Assessment and Plan Mr. Little is a 61 y/o M with history of asthma and chronic back pain presenting with left lower extremity erythema and pustular formation due to cellulitis of his left lower extremity plus DVT. Discharge Planning Pending clinical improvement. Case management has been consult to assist with discharge. Physical therapy currently recommends home with no PT recommended. (Derek Darling MD R2) Attending Attestation Patient seen and examined. Case reviewed and discussed with the resident team. Agree with plan of care as discussed with me and documented in the resident note. I am concerned as he states he will not return to his home because of concerns that he is being effected by people basically poisoning him with building materials. I discussed that he needs very close follow up and his Insurance may insist on coumadin. He cannot have a [facility] nurse as he thinks he may be leaving town after his hospitalization. He declines to tell me where he would go as "[employer] have a network and can find out where I'm going and get to me there." Though he did mention [place], [place] a few times, it is unclear whether he will go there. He does want medical care and knows he needs a minimum of 3-6 months of blood thinners, maybe indefinitely as this was unprovoked. He knows he can if he does not keep up with his meds and follow ups. He doesn't want Psychiatric admission or anything like that but I am concerned that his worries are going to impede his care and hope that some Psychiatric medicine could help him to take good care of himself now and in the future. (Nelly Smith MD) Problem List: (1) Cellulitis ICD Codes: L03.90 - Cellulitis, unspecified Status: Acute Plan: Patient presenting with extensive cellulitis of the left lower extremity from the knee to the ankle on the left and also with erythema on the right. -Chest x-ray: No acute disease, degenerative changes and scoliosis of the thoracolumbar spine -Left lower extremity ultrasound: Nonocclusive deep venous thrombosis within the left common femoral vein. Left inguinal lymphadenopathy which is nonspecific. -CBC: WBC count improving now currently within normal limits -CMP: Within normal limits -Lactic acid 1.7 -Blood cultures: Negative to date -Wound culture: Group A strep Medications: -2 L normal saline, aztreonam, and vancomycin given in ER -Vancomycin 1 g twice a day, consult pharmacy for dosage recommendations (04/27-) -Currently tolerating fluids by mouth, will decrease normal saline to 50 mL an hour to keep IV established -Tylenol when necessary for fever or pain. -Toradol when necessary for breakthrough pain (2) Sepsis ICD Codes: A41.9 - Sepsis, unspecified organism Status: Acute Plan: Please see plan as above Patient currently presenting to the emergency department with cellulitis as well as sepsis (fever, leukocytosis, with site of infection his left lower extremity cellulitis). Patient also found to have 2/6 systolic ejection murmur at the left sternal border. She denies any history of endocarditis or other gram-positive cellulitis. blood cultures. -Echocardiogram: EF of 45-50%. Normal left ventricular size. Trace to mild mitral valve regurgitation. Mild tricuspid valve regurgitation. -Blood cultures: Negative to date -Please see plan as above (3) DVT (deep venous thrombosis) ICD Codes: I82.409 - Acute embolism and thrombosis of unspecified deep veins of unspecified lower extremity Status: Acute Plan: Patient found to have DVT of left lower extremity, with increased size of right lower extremity -Left lower extremity ultrasound: Nonocclusive deep venous thrombosis within the left common femoral vein. Left inguinal lymphadenopathy which is nonspecific. -Heparin Bolus with IV drip per protocol -Coumadin 5 mg daily -SCD/TEDs (4) Nutrition, metabolism, and development symptoms ICD Codes: R63.8 - Other symptoms and signs concerning food and fluid intake Plan: -Diet: Regular as tolerated -Fluids: Normal saline at 50 mL per hour with heparin drip -Electrolytes: Within normal limits, continue to monitor -Prophylaxis: Tylenol when necessary for fever/pain with Toradol when necessary for breakthrough pain, Zofran when necessary for nausea/vomiting, and albuterol when necessary for shortness of breath -Drug screen: Positive for opiates -Alcohol level: Negative (5) Paranoia ICD Codes: F22 - Delusional disorders Status: Acute Plan: he is concerned that people are purposely hurting him and making him sick. offered a Psych eval but he refuses now. He does not qualify for a Domingo act. unsure if medicines will help right now. hopefully he will agree to Psychiatric eval and treatment. can also investigate to be sure he is doing alright with his living situation as he was homeless for awhile. coumadin is very difficult to control if he is not good about checking labs and follow up. will hope that his Insurance will cover [facility] to be sure he is stable at home (Derek Darling MD R2) Problem Qualifiers (1) Cellulitis: Qualified Codes: L03.116 - Cellulitis of left lower limb (2) Sepsis: Qualified Codes: A41.9 - Sepsis, unspecified organism (3) DVT (deep venous thrombosis): Qualified Codes: I82.412 - Acute embolism and thrombosis of left femoral vein Derek Darling MD R2 Apr 28, 2017 09:55 Nelly Smith MD Apr 28, 2017 13:17
[2017-04-28 11:20] LABS: APTT (PATIENT) 48.4 SEC (24.3-30.1)
[2017-04-28] MEDS: HEPARIN-D5W 25,000 U/250 ML 250 ML IV PRN (12:55)
--- NOTE | 2017-04-28 14:51 | PD.PSY.CON ---
Provisional Diagnosis Admission Date Apr 26, 2017 at 19:46 History of Present Illness Service Psychiatry Consult Requested By Attending physician Reason for Consult Patient delusional Primary Care Physician Job Cunningham D.O. HPI 61-year-old male with cellulitis and DVT. Psychiatry consult did regarding patient's delusions. This physician spoke with patient, patient's nurse and reviewed medical record. Patient is indeed delusional and that he believes he is being poisoned in some fashion by people around him, either on construction sites or wherever he goes. However, patient repeatedly denies any suicidal or homicidal ideation, plan or intent. According to nurse, patient is not trying to sign out of the hospital AGAINST MEDICAL ADVICE. Patient is cooperative with treatment. In this physician's opinion, he continues to be competent to provide informed consent regarding his treatment. His delusions are therefore not causing her creating a situation of imminent and irreversible harm. Patient does not wish to have psychiatric treatment at this time, as is his right. Review of Systems Except as stated in HPI: all other systems reviewed are Neg Psychiatric: COMPLAINS OF: Delusions Past Family Social History Coded Allergies: clindamycin (Unverified Allergy, Severe, Fatigue, 04/26/17) ipratropium (Unverified Allergy, Severe, CHEST PAIN, 04/26/17) propoxyphene (Unverified Allergy, Severe, NAUSEA, 04/26/17) ampicillin (Unverified Adverse Reaction, Severe, STATES MADE ABDOMEN UPTIGHT, 04/26/17) sulbactam (Unverified Adverse Reaction, Severe, STATES MADE ABDOMEN UPTIGHT, 04/26/17) levofloxacin (Unverified Adverse Reaction, Intermediate, Nausea/Vomiting, 04/26/17) penicillin G (Unverified Adverse Reaction, Intermediate, NAUSEA, 04/26/17) sulfamethoxazole (Unverified Adverse Reaction, Intermediate, 04/26/17) ABD PAIN trimethoprim (Unverified Adverse Reaction, Intermediate, 04/26/17) ABD PAIN Active Scripts Budesonide-Formoterol Inh (Symbicort Inh) 160-4.5 Mcg/Act Aero, 1 PUFF INH Q12HR , #1 INHALER 1 Refill Prov:Gagan Dunbar MD 04/15/17 Albuterol 18 GM Inh (Ventolin Hfa 18 GM Inh) 90 Mcg/Act Aer, 2 PUFF INH Q4-6H Y for SHORTNESS OF BREATH, #1 INHALER 1 Refill Prov:Gagan Dunbar MD 04/15/17 Hydrocodone-Acetaminophen (Hydrocodone-Acetaminophen) 10-325 mg Tab, 1 TAB PO Q6H Y for PAIN, #12 TAB 0 Refills Prov:Ezra Lugo DO 07/10/16 Current Medications Medications (Trade) Dose Ordered Sig/Ramos Route Start Time Stop Time Status Last Admin (NS Flush) 2 ml BID IV FLUSH 04/27/17 09:00 04/27/17 20:52 (NS Flush) 2 ml UNSCH PRN IV FLUSH 04/26/17 21:15 Sodium Chloride 1,000 ml @ 50 mls/hr Q20H IV 04/26/17 21:11 04/28/17 06:11 Pharmacy Profile Note 0 ml @ 0 mls/hr UNSCH OTHER 04/26/17 21:15 (Tylenol) 500 mg Q4H PRN PO 04/26/17 21:15 04/27/17 04:58 (Toradol Inj) 30 mg Q6H PRN IVP 04/26/17 21:15 05/01/17 21:14 Vancomycin HCl 1000 mg/Sodium Chloride 250 ml @ 250 mls/hr Q12H IV 04/27/17 09:00 04/28/17 09:40 Heparin Sodium/ Dextrose 250 ml @ 14.4 mls/hr [id number] PRN IV 04/26/17 21:11 04/28/17 12:55 (Zofran Inj) 4 mg Q6H PRN IV PUSH 04/27/17 02:45 (Coumadin) 5 mg DAILY@1600 PO 04/27/17 16:00 04/27/17 18:52 (Proair Hfa Inh) 2 puff Q4H PRN INH 04/27/17 20:00 04/28/17 12:59 Family History Denied for mental illness Social History Patient reportedly lives in an apartment by himself. He pays his own bills. 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 He denies alcohol or substance abuse. Minimal or no family support. Patient's Strengths (min. 2) Verbal and resilient. Physical Exam Vital Signs Vital Signs Date Time Temp Pulse Resp B/P (MAP) Pulse Ox O2 Delivery O2 Flow Rate FiO2 04/28/17 11:52 98.4 59 19 115/61 (79) 98 04/27/17 07:18 21 04/26/17 18:05 Room Air I/O 04/28/17 04/28/17 04/29/17 08:00 16:00 00:00 Intake Total 1000 ml 250 ml Balance 1000 ml 250 ml Lab Results Test 04/27/17 21:00 04/28/17 03:50 04/28/17 07:33 04/28/17 09:07 Activated Partial Thromboplast Time 39.9 SEC 48.3 SEC 51.8 SEC White Blood Count 9.4 TH/MM3 Red Blood Count 3.88 MIL/MM3 Hemoglobin 11.9 GM/DL Hematocrit 35.0 % Mean Corpuscular Volume 90.4 FL Mean Corpuscular Hemoglobin 30.7 PG Mean Corpuscular Hemoglobin Concent 34.0 % Red Cell Distribution Width 12.6 % Platelet Count 117 TH/MM3 Mean Platelet Volume 7.6 FL Neutrophils (%) (Auto) 77.4 % Lymphocytes (%) (Auto) 11.4 % Monocytes (%) (Auto) 7.5 % Eosinophils (%) (Auto) 3.2 % Basophils (%) (Auto) 0.5 % Neutrophils # (Auto) 7.3 TH/MM3 Lymphocytes # (Auto) 1.1 TH/MM3 Monocytes # (Auto) 0.7 TH/MM3 Eosinophils # (Auto) 0.3 TH/MM3 Basophils # (Auto) 0.0 TH/MM3 CBC Comment DIFF FINAL Differential Comment Prothrombin Time 11.5 SEC Prothromb Time International Ratio 1.0 RATIO Blood Urea Nitrogen 7 MG/DL Creatinine 0.70 MG/DL Random Glucose 96 MG/DL Calcium Level 8.0 MG/DL Sodium Level 142 MEQ/L Potassium Level 3.5 MEQ/L Chloride Level 111 MEQ/L Carbon Dioxide Level 24.5 MEQ/L Anion Gap 7 MEQ/L Estimat Glomerular Filtration Rate 114 ML/MIN Vancomycin Level Trough 5.9 MCG/ML Test 04/28/17 10:47 Activated Partial Thromboplast Time 48.4 SEC Date/Time Source Procedure Growth Status 04/26/17 18:15 Blood Peripheral Aerobic Blood Culture - Preliminary NO GROWTH IN 2 DAYS Resulted 04/26/17 18:15 Blood Peripheral Anaerobic Blood Culture - Preliminary NO GROWTH IN 2 DAYS Resulted 04/26/17 18:10 Wound Leg Gram Stain - Final Resulted 04/26/17 18:10 Wound Culture - Preliminary Group A Beta Strep Staphylococcus Aureus Resulted Mental Status Examination Speech: Unremarkable Orientation: x3 Memory: Unremarkable Thought Process: Organized, Goal Directed Thought Content: Bizarre thinking, Other Hallucination Type: None Attention and Concentration: Good Suicidal Ideation: No Previous Suicide Attempts: No Homicidal Ideation: No Previous Homicide Attempts: No Insight: Fair Judgment: WNL Affect: Good Mood: Appropriate Motor Activity: Normal gait Assessment & Plan Problem List: (1) Delusional disorder ICD Codes: F22 - Delusional disorders Status: Chronic Assessment & Plan Estimated LOS: days 61-year-old male with fairly obvious delusional disorder of being poisoned in some fashion by some unknown item or items in his environment. Currently being seen and treated for cellulitis and DVT. Patient is apparently cooperative with his treatment, according to nurse. Patient does not wish to be treated psychiatrically. He denies any suicidal or homicidal ideation, plan or intent. He is not felt to be Domingo act bullet this time as he is willing to accept treatment and not in danger of imminent or irreversible arm. Mac Monahan MD Apr 28, 2017 14:51
[2017-04-28] MEDS: WARFARIN SOD 5 MG TAB PO SCH (16:37)
[2017-04-28] MEDS: VANCOMYCIN INJ 1,250 MG in SODIUM CHLOR 0.9% 250 ML INJ 250 ML IV SCH (18:06)
[2017-04-29 03:54] VITALS: BP 118/67; PULSE 52; RESP 18; TEMP 97.8; O2SAT 100
[2017-04-29] MEDS: VANCOMYCIN INJ 1,250 MG in SODIUM CHLOR 0.9% 250 ML INJ 250 ML IV SCH ×2 (05:59→17:46)
[2017-04-29 06:07] LABS: HEMATOCRIT 34.2 % (39.0-51.0); MEAN CELL VOLUME 89.6 FL (80.0-100.0); MEAN CORPUSCULAR HEMOGLOBIN 30.6 PG (27.0-34.0); MEAN CORPUSCULAR HGB CONC 34.1 % (32.0-36.0); PLATELET COUNT 140 TH/MM3 (150-450); RED BLOOD COUNT 3.81 MIL/MM3 (4.50-5.90); REVIEW FLAG FINAL; WHITE BLOOD COUNT 7.1 TH/MM3 (4.0-11.0)
[2017-04-29 06:28] LABS: BICARBONATE 26.4 MEQ/L (21.0-32.0); POTASSIUM 3.6 MEQ/L (3.5-5.1)
[2017-04-29] MEDS: ALBUTEROL SULFATE 90 MCG/ACT HFA 8 GM INHALER INH PRN ×2 (06:50→17:51)
[2017-04-29 07:32] VITALS: BP 120/72; PULSE 50; RESP 18; TEMP 98.1; O2SAT 99
[2017-04-29] MEDS ORDERED: RESP: ALBUTEROL 2.5 MG/3 ML NEB (PRN) NEB (08:45)
[2017-04-29] MEDS: ENOXAPARIN SODIUM 80 MG/0.8 ML SYRINGE SQ SCH ×2 (09:38→22:01)
[2017-04-29] MEDS: SODIUM CHLORIDE 0.9% FLUSH 10 ML FLUSH IV FLUSH SCH ×2 (09:38→22:01)
[2017-04-29 11:39] VITALS: BP 106/65; PULSE 60; RESP 17; TEMP 98; O2SAT 100
--- NOTE | 2017-04-29 11:43 | HHI.FPPN ---
Subjective Remarks patient seen and examined bedside today. Pt denies any acute events overnight. He is not sure if his legs have improved, but he complains of persistent itchiness of legs bilaterally. Denies fever/chills. Denies CP/dizziness. Pt continues to feel some SOB with his asthma that is baseline. He would like to receive albuterol neb treatments vs his current PRN. (Joana Medina MD R2) Objective Vitals Vital Signs Date Time Temp Pulse Resp B/P (MAP) Pulse Ox O2 Delivery O2 Flow Rate FiO2 04/29/17 07:32 98.1 50 18 120/72 (88) 99 04/29/17 03:54 97.8 52 18 118/67 (84) 100 04/28/17 23:26 98.0 58 20 124/67 (86) 99 04/28/17 20:45 98.5 56 18 111/58 (75) 99 04/28/17 20:00 95 04/28/17 15:57 98.6 61 19 111/63 (79) 97 04/28/17 11:52 98.4 59 19 115/61 (79) 98 I/O 04/28/17 04/28/17 04/28/17 04/29/17 04/29/17 04/29/17 06:59 14:59 22:59 06:59 14:59 22:59 Intake Total 1000 ml 250 ml 1500 ml Balance 1000 ml 250 ml 1500 ml IV Total 1000 ml 250 ml 1500 ml # Voids 1 # Bowel Movements 1 (Joana Medina MD R2) Result Diagram: 04/29/17 0538 04/29/17 0530 Objective Remarks GENERAL: Well-nourished, well-developed male lying in bed watching TV and eating breakfast in no acute distress. On exam the pt is itching his legs where scars are and re-opening wounds. SKIN: Warm and dry. No rash. Left lower extremity: Large area of erythema with numerous yellow/green pustules surrounding chapin and calf of the extremity circumferentially. Erythema has improved since admission with pustules healing forming multiple eschars. Erythema at admission outlined by surgical pen. Currently nontender to palpation. 2+ popliteal, DP, and PT pulses with normal sensation and range of motion. 2+ edema. Foot on exam appears dry and cracking with no signs of ulceration or obvious infection. Right lower extremity: Large area of erythema increased from admission without pustules along the chapin of the right lower extremity. Increased warmth compared to the left lower extremity. Extremity has increased in size since admission with 2+ edema. Foot on exam appears dry and cracking with no signs of ulceration or obvious infection. Feet are also slightly erythematous HEENT: Atraumatic, normocephalic with EOMI. MMM. No rhinorrhea. No visible LAD or JVD appreciated. CARDIOVASCULAR: Regular rate and rhythm with 1/6 systolic ejection murmur most obvious at the left sternal border appreciated. 2+ pulses in all 4 extremities. RESPIRATORY: Clear to auscultation bilaterally with no CRW. No increased work of breathing. GASTROINTESTINAL: Abdomen soft, non-tender, nondistended with positive bowel sounds. No masses appreciated. MUSCULOSKELETAL: No cyanosis. Strength grossly WNL. 2+ pulses in all 4 extremities. Please see as above for lower extremities. NEURO/PSYCH: Afocal. AAO 3. Patient with delusion that someone put "building material" near him in order to cause his cellulitis at admission. He denies any hallucinations or delusions at this time. Normal speech. (Joana Medina MD R2) A/P Assessment and Plan Mr. Little is a 61 y/o M with history of asthma and chronic back pain presenting with left lower extremity erythema and pustular formation due to cellulitis of his left lower extremity plus DVT. Discharge Planning Pending clinical improvement. Case management has been consult to assist with discharge. Physical therapy currently recommends home with no PT recommended. (Joana Medina MD R2) Attending Attestation Patient seen and examined. Case reviewed and discussed with the resident team. Agree with plan of care as discussed with me and documented in the resident note. he is concerning about going home as he will not return to his house because of worries about being poisoned by building material dust. explained to him about blood clots and that he could get more and they could kill him if he doesn't take strong blood thinners correctly for months. he thinks that if he gets away from the place or people who have been bothering him that he will not have any further problems but it was clearly explained that he could if he doesn't take this seriously. his Insurance will only pay for coumadin. this could be disastrous with his refusal to say where he is going when he leaves the hospital he cannot get [facility]. He refuses a home health care nurse anyway. he will be on lovenox plus coumadin to bridge him (Nelly Smith MD) Problem List: (1) Cellulitis ICD Codes: L03.90 - Cellulitis, unspecified Status: Acute Plan: Patient presenting with extensive cellulitis of the left lower extremity from the knee to the ankle on the left and also with erythema on the right. -Chest x-ray: No acute disease, degenerative changes and scoliosis of the thoracolumbar spine -Left lower extremity ultrasound: Nonocclusive deep venous thrombosis within the left common femoral vein. Left inguinal lymphadenopathy which is nonspecific. -CBC: WBC count improving now currently within normal limits -CMP: Within normal limits -Lactic acid 1.7 -Blood cultures: Negative x 2 dayd -Wound culture: Group A strep Medications: -2 L normal saline, aztreonam, and vancomycin given in ER -Vancomycin 1 g twice a day, consult pharmacy for dosage recommendations (04/27-) -Tolerating PO, normal saline to 50 mL an hour to keep IV established -Tylenol when necessary for fever or pain. -Toradol when necessary for breakthrough pain (2) Sepsis ICD Codes: A41.9 - Sepsis, unspecified organism Status: Acute Plan: Please see plan as above Patient currently presenting to the emergency department with cellulitis as well as sepsis (fever, leukocytosis, with site of infection his left lower extremity cellulitis). Patient also found to have 2/6 systolic ejection murmur at the left sternal border. She denies any history of endocarditis or other gram-positive cellulitis. blood cultures. -Echocardiogram: EF of 45-50%. Normal left ventricular size. Trace to mild mitral valve regurgitation. Mild tricuspid valve regurgitation. -Blood cultures: Negative to date -Please see plan as above (3) DVT (deep venous thrombosis) ICD Codes: I82.409 - Acute embolism and thrombosis of unspecified deep veins of unspecified lower extremity Status: Acute Plan: Patient found to have DVT of left lower extremity, with increased size of right lower extremity -Left lower extremity ultrasound: Nonocclusive deep venous thrombosis within the left common femoral vein. Left inguinal lymphadenopathy which is nonspecific. - D/C Heparin IV drip per protocol - Lovenox SQ BID for bridging x 5 days (09/05) -Coumadin 5 mg daily (s/p 2 doses), titrate to INR goal 2.0-3.0 -SCD/TEDs (4) Paranoia ICD Codes: F22 - Delusional disorders Status: Acute Plan: Questionable compliance with Lovenox injections & Coumadin clinic on d/c with his delusions - Psych consult: done - no Domingo act. pt is not a harm to himself or anyone else. pt does not want help/medication. - Home Health Aid pending (5) Asthma ICD Codes: J45.909 - Unspecified asthma, uncomplicated Status: Chronic Plan: Albuterol duonebs q6 PRN Albuterol puff q2h PRN (6) Nutrition, metabolism, and development symptoms ICD Codes: R63.8 - Other symptoms and signs concerning food and fluid intake Plan: -Diet: Regular as tolerated -Fluids: Normal saline at 50 mL per hour with heparin drip -Electrolytes: Within normal limits, continue to monitor -Prophylaxis: Tylenol when necessary for fever/pain with Toradol when necessary for breakthrough pain, Zofran when necessary for nausea/vomiting, and albuterol when necessary for shortness of breath -Drug screen: Positive for opiates -Alcohol level: Negative (Joana Medina MD R2) Problem Qualifiers (1) Cellulitis: Qualified Codes: L03.116 - Cellulitis of left lower limb (2) Sepsis: Qualified Codes: A41.9 - Sepsis, unspecified organism (3) DVT (deep venous thrombosis): Qualified Codes: I82.412 - Acute embolism and thrombosis of left femoral vein Joana Medina MD R2 Apr 29, 2017 11:43 Nelly Smith MD Apr 29, 2017 12:19
[2017-04-29] MEDS: SODIUM CHLOR 0.9% 1000 ML INJ 1,000 ML IV SCH (11:44)
--- NOTE | 2017-04-29 11:46 | HHI.FF ---
Face to Face Verification Diagnosis: (1) DVT (deep venous thrombosis) Physical Therapy Order: Evaluate and Treat Home Health Nursing Order: Medical education I have seen patient Cameron Rowland Case on 04/29/17. My clinical findings support the need for the requested home health care services because: Med compliance is questionable Impaired cognition/judgement Infection w/ risk of complications Injectable med education/admin I certify that my clinical findings support that this patient is homebound because: Impaired cognitive ability/safety Joana Medina MD R2 Apr 29, 2017 11:46
[2017-04-29] MEDS: HYDROCORTISONE 1% LOTN 120 ML BTL TOPICAL SCH ×2 (14:50→22:00)
[2017-04-29] MEDS: WARFARIN SOD 5 MG TAB PO SCH (15:58)
[2017-04-29 15:59] VITALS: BP 117/68; PULSE 57; RESP 18; TEMP 98.1; O2SAT 99
[2017-04-29 20:30] VITALS: BP 118/72; PULSE 58; RESP 20; TEMP 98; O2SAT 100
[2017-04-29 23:49] VITALS: BP 115/75; PULSE 59; RESP 18; TEMP 97.9; O2SAT 99
[2017-04-30 04:19] VITALS: BP 119/65; PULSE 57; RESP 18; TEMP 98.7; O2SAT 98
[2017-04-30] MEDS: ALBUTEROL SULFATE 90 MCG/ACT HFA 8 GM INHALER INH PRN (04:47)
[2017-04-30] MEDS ORDERED: PHARMACY ORDERED LAB ONE (05:45)
[2017-04-30] MEDS: VANCOMYCIN INJ 1,250 MG in SODIUM CHLOR 0.9% 250 ML INJ 250 ML IV SCH (06:00)
[2017-04-30] MEDS: HYDROCORTISONE 1% LOTN 120 ML BTL TOPICAL SCH ×3 (06:28→21:57)
[2017-04-30 08:14] VITALS: BP 121/73; PULSE 56; RESP 16; TEMP 97.8; O2SAT 97
--- NOTE | 2017-04-30 09:02 | HHI.FPPN ---
Subjective Remarks Patient seen and examined bedside this a.m. Pt in no acute distress. States that he denied his last dose of IV vanc because he was worried it would hurt his stomach. States the itchy legs are the same. Denies fever/chills. Denies SOB /CP/dizziness. (Joana Medina MD R2) Objective Vitals Vital Signs Date Time Temp Pulse Resp B/P (MAP) Pulse Ox O2 Delivery O2 Flow Rate FiO2 04/30/17 08:14 97.8 56 16 121/73 (89) 97 04/30/17 04:19 98.7 57 18 119/65 (83) 98 04/29/17 23:49 97.9 59 18 115/75 (88) 99 04/29/17 20:30 98.0 58 20 118/72 (87) 100 04/29/17 15:59 98.1 57 18 117/68 (84) 99 04/29/17 11:39 98.0 60 17 106/65 (79) 100 I/O 04/29/17 04/29/17 04/29/17 04/30/17 04/30/17 04/30/17 07:00 15:00 23:00 07:00 15:00 23:00 Intake Total 1500 ml 260 ml Balance 1500 ml 260 ml IV Total 1500 ml 260 ml # Voids 1 # Bowel Movements 1 (Joana Medina MD R2) Result Diagram: 04/29/17 0538 04/29/17 0530 Objective Remarks GENERAL: Well-nourished, well-developed male lying in bed watching TV and eating breakfast in no acute distress. On exam the pt is itching his legs where scars are and re-opening wounds. SKIN: Warm and dry. No rash. Left lower extremity: Large area of erythema with numerous yellow/green pustules surrounding chapin and calf of the extremity circumferentially. Erythema has improved since admission with pustules healing forming multiple eschars. Erythema at admission outlined by surgical pen. Currently nontender to palpation. 2+ popliteal, DP, and PT pulses with normal sensation and range of motion. 2+ edema. Foot on exam appears dry and cracking with no signs of ulceration or obvious infection. Right lower extremity: Large area of erythema increased from admission without pustules along the chapin of the right lower extremity. Increased warmth compared to the left lower extremity. Extremity has increased in size since admission with 2+ edema. Foot on exam appears dry and cracking and opening up with bleeding today. Feet are also slightly erythematous. HEENT: Atraumatic, normocephalic with EOMI. MMM. No rhinorrhea. No visible LAD or JVD appreciated. CARDIOVASCULAR: Regular rate and rhythm with 1/6 systolic ejection murmur most obvious at the left sternal border appreciated. 2+ pulses in all 4 extremities. RESPIRATORY: Clear to auscultation bilaterally with no CRW. No increased work of breathing. GASTROINTESTINAL: Abdomen soft, non-tender, nondistended with positive bowel sounds. No masses appreciated. MUSCULOSKELETAL: No cyanosis. Strength grossly WNL. 2+ pulses in all 4 extremities. Please see as above for lower extremities. NEURO/PSYCH: Afocal. AAO 3. Patient with delusion that someone put "building material" near him in order to cause his cellulitis at admission. He denies any hallucinations or delusions at this time. Normal speech. (Joana Medina MD R2) A/P Assessment and Plan Mr. Little is a 61 y/o M with history of asthma and chronic back pain presenting with left lower extremity erythema and pustular formation due to cellulitis of his left lower extremity plus DVT. Discharge Planning Pending clinical improvement. Case management has been consult to assist with discharge with lovenox/coumadin. Physical therapy currently recommends home with no PT recommended. (Joana Medina MD R2) Attending Attestation Patient seen and examined. Case reviewed and discussed with the resident team. Agree with plan of care as discussed with me and documented in the resident note. continues discussing with him that coumadin needs careful monitoring. he needs the same discussion every day and always blames building materials used by a "dirty advertising copywriter and his ex " for his clots and other problems. he cannot get Lovenox or home health so will keep working on getting him therapeutic with his INR (Nelly Smith MD) Problem List: (1) Cellulitis ICD Codes: L03.90 - Cellulitis, unspecified Status: Acute Plan: Patient presenting with extensive cellulitis of the left lower extremity from the knee to the ankle on the left and also with erythema on the right. -Chest x-ray: No acute disease, degenerative changes and scoliosis of the thoracolumbar spine -Left lower extremity ultrasound: Nonocclusive deep venous thrombosis within the left common femoral vein. Left inguinal lymphadenopathy which is nonspecific. -CBC: WBC count improving now currently within normal limits -CMP: Within normal limits -Lactic acid 1.7 -Blood cultures: Negative x 3 dayd -Wound culture: Group A strep Medications: -2 L normal saline, aztreonam, and vancomycin given in ER -Vancomycin 1 g twice a day, consult pharmacy for dosage recommendations (04/27-) -Tolerating PO, normal saline to 50 mL an hour to keep IV established -Tylenol when necessary for fever or pain. -Toradol when necessary for breakthrough pain (2) Sepsis ICD Codes: A41.9 - Sepsis, unspecified organism Status: Acute Plan: Please see plan as above Patient currently presenting to the emergency department with cellulitis as well as sepsis (fever, leukocytosis, with site of infection his left lower extremity cellulitis). Patient also found to have 2/6 systolic ejection murmur at the left sternal border. She denies any history of endocarditis or other gram-positive cellulitis. blood cultures. -Echocardiogram: EF of 45-50%. Normal left ventricular size. Trace to mild mitral valve regurgitation. Mild tricuspid valve regurgitation. -Blood cultures: Negative to date -Please see plan as above (3) DVT (deep venous thrombosis) ICD Codes: I82.409 - Acute embolism and thrombosis of unspecified deep veins of unspecified lower extremity Status: Acute Plan: Patient found to have DVT of left lower extremity, with increased size of right lower extremity -Left lower extremity ultrasound: Nonocclusive deep venous thrombosis within the left common femoral vein. Left inguinal lymphadenopathy which is nonspecific. - D/C Heparin IV drip per protocol - Lovenox SQ BID for bridging x 5 days (10/06) -Coumadin 5 mg daily (s/p 3 doses), titrate to INR goal 2.0-3.0 - f/u INR today -SCD/TEDs (4) Paranoia ICD Codes: F22 - Delusional disorders Status: Acute Plan: Questionable compliance with Lovenox injections & Coumadin clinic on d/c with his delusions - Psych consult: done - no Domingo act. pt is not a harm to himself or anyone else. pt does not want help/medication. - Home Health Aid pending (5) Asthma ICD Codes: J45.909 - Unspecified asthma, uncomplicated Status: Chronic Plan: Albuterol duonebs q6 PRN Albuterol puff q2h PRN (6) Nutrition, metabolism, and development symptoms ICD Codes: R63.8 - Other symptoms and signs concerning food and fluid intake Plan: -Diet: Regular as tolerated -Fluids: Normal saline at 50 mL per hour with heparin drip -Electrolytes: Within normal limits, continue to monitor -Prophylaxis: Tylenol when necessary for fever/pain with Toradol when necessary for breakthrough pain, Zofran when necessary for nausea/vomiting, and albuterol when necessary for shortness of breath -Drug screen: Positive for opiates -Alcohol level: Negative (Joana Medina MD R2) Problem Qualifiers (1) Cellulitis: Qualified Codes: L03.116 - Cellulitis of left lower limb (2) Sepsis: Qualified Codes: A41.9 - Sepsis, unspecified organism (3) DVT (deep venous thrombosis): Qualified Codes: I82.412 - Acute embolism and thrombosis of left femoral vein Joana Medina MD R2 Apr 30, 2017 09:02 Nelly Smith MD May 01, 2017 13:48
[2017-04-30] MEDS: ENOXAPARIN SODIUM 80 MG/0.8 ML SYRINGE SQ SCH ×2 (09:25→21:18)
[2017-04-30] MEDS: SODIUM CHLORIDE 0.9% FLUSH 10 ML FLUSH IV FLUSH SCH ×2 (09:25→21:00)
[2017-04-30 09:49] LABS: HEMATOCRIT 34.9 % (39.0-51.0); MEAN CELL VOLUME 89.9 FL (80.0-100.0); MEAN CORPUSCULAR HEMOGLOBIN 30.4 PG (27.0-34.0); MEAN CORPUSCULAR HGB CONC 33.8 % (32.0-36.0); PLATELET COUNT 182 TH/MM3 (150-450); RED BLOOD COUNT 3.88 MIL/MM3 (4.50-5.90); RED CELL DISTRIBUTION WIDTH 12.8 % (11.6-17.2); REVIEW FLAG FINAL; WHITE BLOOD COUNT 6.9 TH/MM3 (4.0-11.0)
[2017-04-30 09:51] LABS: APTT (PATIENT) 30.2 SEC (24.3-30.1)
[2017-04-30] MEDS ORDERED: VANCOMYCIN INJ 1,250 MG in SODIUM CHLOR 0.9% 250 ML INJ 250 ML IV SCH (10:00)
[2017-04-30 10:15] LABS: ANION GAP 7 MEQ/L (5-15); AST (GOT) 20 U/L (15-37); BICARBONATE 28.8 MEQ/L (21.0-32.0); BLOOD UREA NITROGEN 6 MG/DL (7-18); CHLORIDE 109 MEQ/L (98-107); GLOMERULAR FILTRATION RATE 142 ML/MIN (>89); POTASSIUM 3.4 MEQ/L (3.5-5.1); SODIUM (NA) 145 MEQ/L (136-145)
[2017-04-30 10:16] LABS: ALT (GPT) 24 U/L (12-78)
[2017-04-30 10:18] LABS: ALKALINE PHOSPHATASE 103 U/L (45-117); TOTAL BILIRUBIN ADULT 0.5 MG/DL (0.2-1.0)
[2017-04-30] MEDS: EUCERIN CREAM 120 GM JAR TOPICAL SCH ×3 (10:45→21:57)
[2017-04-30 11:56] VITALS: BP 111/67; PULSE 59; RESP 16; TEMP 98.1; O2SAT 100
[2017-04-30] MEDS: SODIUM CHLOR 0.9% 1000 ML INJ 1,000 ML IV SCH (13:44)
[2017-04-30 15:49] VITALS: BP 115/69; PULSE 58; RESP 18; TEMP 98.3; O2SAT 99
[2017-04-30] MEDS: WARFARIN SOD 5 MG TAB PO SCH (16:37)
[2017-04-30 19:51] VITALS: BP 118/69; PULSE 59; RESP 19; TEMP 97.9; O2SAT 100
[2017-04-30] MEDS: VANCOMYCIN INJ 1,500 MG in SODIUM CHLORID 0.9% 500 ML INJ 500 ML IV SCH (21:57)
[2017-05-01 00:18] VITALS: BP 111/62; PULSE 56; RESP 17; TEMP 97.6; O2SAT 98
[2017-05-01] MEDS: EUCERIN CREAM 120 GM JAR TOPICAL SCH ×4 (04:00→21:17)
[2017-05-01] MEDS: HYDROCORTISONE 1% LOTN 120 ML BTL TOPICAL SCH ×3 (06:00→21:17)
[2017-05-01 06:10] VITALS: BP 113/66; PULSE 59; RESP 20; TEMP 98; O2SAT 98
[2017-05-01 07:12] LABS: BICARBONATE 27.6 MEQ/L (21.0-32.0); POTASSIUM 3.5 MEQ/L (3.5-5.1)
[2017-05-01 07:13] LABS: AUTOMATED NEUTROPHIL # 6.3 TH/MM3 (1.8-7.7); BASOPHIL # 0.1 TH/MM3 (0-0.2); BASOPHIL % 0.8 % (0.0-2.0); EOSINOPHIL # 0.4 TH/MM3 (0-0.4); EOSINOPHIL % 4.7 % (0.0-4.0); HEMATOCRIT 34.8 % (39.0-51.0); HEMO FLAGS DIFF FINAL; LYMPH % 14.4 % (9.0-44.0); LYMPHOCYTE # 1.3 TH/MM3 (1.0-4.8); MEAN CELL VOLUME 90.1 FL (80.0-100.0); MEAN CORPUSCULAR HEMOGLOBIN 30.9 PG (27.0-34.0); MEAN CORPUSCULAR HGB CONC 34.3 % (32.0-36.0); MONO % 7.7 % (0.0-8.0); NEUT % 72.4 % (16.0-70.0); PLATELET COUNT 211 TH/MM3 (150-450); RED BLOOD COUNT 3.87 MIL/MM3 (4.50-5.90); RED CELL DISTRIBUTION WIDTH 12.9 % (11.6-17.2); WHITE BLOOD COUNT 8.7 TH/MM3 (4.0-11.0)
[2017-05-01 07:14] LABS: INTERNATIONAL NORMALIZED RATIO 1.1 RATIO
[2017-05-01 07:15] LABS: APTT (PATIENT) 31.3 SEC (24.3-30.1)
[2017-05-01 08:00] VITALS: BP 119/75; PULSE 58; RESP 18; TEMP 98.2; O2SAT 97
[2017-05-01] MEDS: SODIUM CHLORIDE 0.9% FLUSH 10 ML FLUSH IV FLUSH SCH ×2 (09:11→21:15)
[2017-05-01] MEDS: ENOXAPARIN SODIUM 80 MG/0.8 ML SYRINGE SQ SCH ×2 (09:11→21:14)
[2017-05-01] MEDS: SODIUM CHLOR 0.9% 1000 ML INJ 1,000 ML IV SCH (09:12)
[2017-05-01] MEDS: VANCOMYCIN INJ 1,500 MG in SODIUM CHLORID 0.9% 500 ML INJ 500 ML IV SCH ×2 (10:00→21:15)
--- NOTE | 2017-05-01 11:38 | HHI.FPPN ---
Subjective Remarks Patient seen and examined this morning by medical team. No acute events overnight per nursing staff. Vital signs remained stable with bradycardia to the mid to upper 50s. Medical team thoroughly discussed the need for anticoagulation and close follow-up post discharge. He states he artery has a follow-up appointment with his physician Dr. Cunningham in the coming weeks. (Derek Darling MD R2) Objective Vitals Vital Signs Date Time Temp Pulse Resp B/P (MAP) Pulse Ox O2 Delivery O2 Flow Rate FiO2 05/01/17 08:00 98.2 58 18 119/75 (90) 97 05/01/17 06:10 98.0 59 20 113/66 (82) 98 05/01/17 00:18 97.6 56 17 111/62 (78) 98 04/30/17 19:51 97.9 59 19 118/69 (85) 100 04/30/17 15:49 98.3 58 18 115/69 (84) 99 04/30/17 11:56 98.1 59 16 111/67 (82) 100 I/O 04/30/17 04/30/17 04/30/17 05/01/17 05/01/17 05/01/17 07:00 15:00 23:00 07:00 15:00 23:00 Intake Total 260 ml Balance 260 ml IV Total 260 ml (Derek Darling MD R2) Result Diagram: 05/01/1764305/01/17 0644 Objective Remarks GENERAL: Well-nourished, well-developed male lying in bed watching TV and eating breakfast in no acute distress. On exam the pt is itching his legs where scars are and re-opening wounds. SKIN: Warm and dry. No rash. Left lower extremity: Large area of erythema with numerous yellow/green pustules surrounding chapin and calf of the extremity circumferentially. Erythema has improved since admission with pustules healing forming multiple eschars. Erythema at admission outlined by surgical pen. Currently nontender to palpation. 2+ popliteal, DP, and PT pulses with normal sensation and range of motion. 2+ edema. Foot on exam appears dry and cracking with no signs of ulceration or obvious infection. Right lower extremity: Large area of erythema increased from admission without pustules along the chapin of the right lower extremity. Increased warmth compared to the left lower extremity. Extremity has increased in size since admission with 2+ edema. Improved from admission. Foot on exam appears dry and cracking and opening up with bleeding. Feet currently with Eucerin cream applied bilaterally. HEENT: Atraumatic, normocephalic with EOMI. MMM. No rhinorrhea. No visible LAD or JVD appreciated. CARDIOVASCULAR: Regular rate and rhythm with 1/6 systolic ejection murmur most obvious at the left sternal border appreciated. 2+ pulses in all 4 extremities. RESPIRATORY: Clear to auscultation bilaterally with no CRW. No increased work of breathing. GASTROINTESTINAL: Abdomen soft, non-tender, nondistended with positive bowel sounds. No masses appreciated. MUSCULOSKELETAL: No cyanosis. Strength grossly WNL. 2+ pulses in all 4 extremities. Please see as above for lower extremities. NEURO/PSYCH: Afocal. AAO 3. Patient continues with delusions that someone put "building material" near him in order to cause his cellulitis at admission. He denies any hallucinations or delusions at this time. Normal speech. (Derek Darling MD R2) A/P Assessment and Plan Mr. Little is a 61 y/o M with history of asthma and chronic back pain presenting with left lower extremity erythema and pustular formation due to cellulitis of his left lower extremity plus DVT. Discharge Planning Pending clinical improvement and therapeutic INR. Case management has been consult to assist with discharge with lovenox/coumadin. Physical therapy currently recommends home with no PT recommended. (Derek Darling MD R2) Attending Attestation Patient seen and examined. Case reviewed and discussed with the resident team. Agree with plan of care as discussed with me and documented in the resident note. because of his delusions about the cause of his illness and a record deal worth millions, keep talking to him daily about the danger of clots and that he has a huge risk of getting another one if he is not therapeutic on his INRs. will give coumadin booklet. he was informed he needs close follow up with his primary Dr and blood tests (Nelly Smith MD) Problem List: (1) Cellulitis ICD Codes: L03.90 - Cellulitis, unspecified Status: Acute Plan: Patient presenting with extensive cellulitis of the left lower extremity from the knee to the ankle on the left and also with erythema on the right. -Chest x-ray: No acute disease, degenerative changes and scoliosis of the thoracolumbar spine -Left lower extremity ultrasound: Nonocclusive deep venous thrombosis within the left common femoral vein. Left inguinal lymphadenopathy which is nonspecific. -CBC: WBC count improving now currently within normal limits -CMP: Within normal limits -Lactic acid 1.7 -Blood cultures: Negative x 5 days -Wound culture: Group A strep, Staph aureus Medications: -2 L normal saline, aztreonam, and vancomycin given in ER -Vancomycin 1 g twice a day, consult pharmacy for dosage recommendations (04/27-) -Tolerating PO, normal saline to 50 mL an hour to keep IV established -Tylenol when necessary for fever or pain. -Toradol when necessary for breakthrough pain (DC 05/01) (2) Sepsis ICD Codes: A41.9 - Sepsis, unspecified organism Status: Acute Plan: Please see plan as above Patient currently presenting to the emergency department with cellulitis as well as sepsis (fever, leukocytosis, with site of infection his left lower extremity cellulitis). Patient also found to have 2/6 systolic ejection murmur at the left sternal border. She denies any history of endocarditis or other gram-positive cellulitis. blood cultures. -Echocardiogram: EF of 45-50%. Normal left ventricular size. Trace to mild mitral valve regurgitation. Mild tricuspid valve regurgitation. -Blood cultures: Negative to date -Please see plan as above (3) DVT (deep venous thrombosis) ICD Codes: I82.409 - Acute embolism and thrombosis of unspecified deep veins of unspecified lower extremity Status: Acute Plan: Patient found to have DVT of left lower extremity, with increased size of right lower extremity -Left lower extremity ultrasound: Nonocclusive deep venous thrombosis within the left common femoral vein. Left inguinal lymphadenopathy which is nonspecific. - Lovenox SQ BID for bridging -Coumadin 10 mg daily, titrate to INR goal 2.0-3.0 - f/u INR daily -SCD/TEDs (4) Paranoia ICD Codes: F22 - Delusional disorders Status: Acute Plan: Questionable compliance with Lovenox injections & Coumadin clinic on d/c with his delusions - Psych consult: done - no Domingo act. pt is not a harm to himself or anyone else. pt does not want help/medication. - Home Health Aid pending (5) Asthma ICD Codes: J45.909 - Unspecified asthma, uncomplicated Status: Chronic Plan: Albuterol duonebs q6 PRN Albuterol puff q2h PRN (6) Nutrition, metabolism, and development symptoms ICD Codes: R63.8 - Other symptoms and signs concerning food and fluid intake Plan: -Diet: Regular as tolerated -Fluids: Normal saline at 50 mL per hour with heparin drip -Electrolytes: Within normal limits, continue to monitor -Prophylaxis: Tylenol when necessary for fever/pain, Zofran when necessary for nausea/vomiting, and albuterol when necessary for shortness of breath -Drug screen: Positive for opiates -Alcohol level: Negative (Derek Darling MD R2) Problem Qualifiers (1) Cellulitis: Qualified Codes: L03.116 - Cellulitis of left lower limb (2) Sepsis: Qualified Codes: A41.9 - Sepsis, unspecified organism (3) DVT (deep venous thrombosis): Qualified Codes: I82.412 - Acute embolism and thrombosis of left femoral vein Derek Darling MD R2 May 01, 2017 11:38 Nelly Smith MD May 01, 2017 13:52
[2017-05-01 12:00] VITALS: BP 120/66; PULSE 57; RESP 18; TEMP 98.3; O2SAT 97
[2017-05-01 16:00] VITALS: BP 123/58; PULSE 56; RESP 18; TEMP 97.6; O2SAT 99
[2017-05-01] MEDS: WARFARIN SOD 5 MG TAB PO SCH (16:47)
[2017-05-01 20:00] VITALS: BP 96/54; PULSE 64; RESP 20; TEMP 98.8; O2SAT 96
[2017-05-02] VITALS: BP 119/70; PULSE 62; RESP 20; TEMP 97.9; O2SAT 97
[2017-05-02 04:00] VITALS: BP 122/69; PULSE 54; RESP 20; TEMP 98.9; O2SAT 98
[2017-05-02] MEDS: EUCERIN CREAM 120 GM JAR TOPICAL SCH ×4 (04:00→23:37)
[2017-05-02] MEDS: SODIUM CHLOR 0.9% 1000 ML INJ 1,000 ML IV SCH ×2 (05:44→23:37)
[2017-05-02] MEDS: HYDROCORTISONE 1% LOTN 120 ML BTL TOPICAL SCH ×3 (06:00→23:37)
[2017-05-02 08:00] VITALS: BP 128/66; PULSE 56; RESP 18; TEMP 98; O2SAT 98
[2017-05-02] MEDS: SODIUM CHLORIDE 0.9% FLUSH 10 ML FLUSH IV FLUSH SCH ×2 (08:05→22:52)
[2017-05-02] MEDS: ENOXAPARIN SODIUM 80 MG/0.8 ML SYRINGE SQ SCH ×2 (08:05→22:52)
[2017-05-02] MEDS ORDERED: PHARMACY ORDERED LAB ONE (09:45)
[2017-05-02] MEDS: VANCOMYCIN INJ 1,500 MG in SODIUM CHLORID 0.9% 500 ML INJ 500 ML IV SCH ×2 (10:08→22:48)
--- NOTE | 2017-05-02 10:20 | HHI.FPPN ---
Subjective Remarks Patient seen and examined this morning by medical team. No acute events overnight per nursing staff. VS remain stable. Patient states that he is doing a lot better and is happy with his progression. Medical team again thoroughly discussed the importance of follow up regarding his Coumadin medication. While he does not want to have to have his INR checked, he does state that he will be compliant with the follow up protocol. Otherwise he has no complaints and denies any fevers, chills, SOB, chest pain, NVD, or calf tenderness. Of note, patient does mention that he believes the nursing staff has started "throwing building materials into his room" which is consistent with his delusional disorder. (Derek Darling MD R2) Objective Vitals Vital Signs Date Time Temp Pulse Resp B/P (MAP) Pulse Ox O2 Delivery O2 Flow Rate FiO2 05/02/17 08:00 98.0 56 18 128/66 (86) 98 05/02/17 04:00 98.9 54 20 122/69 (86) 98 05/02/17 00:00 97.9 62 20 119/70 (86) 97 05/01/17 20:00 98.8 64 20 96/54 (68) 96 05/01/17 16:00 97.6 56 18 123/58 (79) 99 05/01/17 12:00 98.3 57 18 120/66 (84) 97 I/O 05/01/17 05/01/17 05/01/17 05/02/17 05/02/17 05/02/17 06:59 14:59 22:59 06:59 14:59 22:59 Intake Total 480 ml Balance 480 ml Intake Oral 480 ml # Voids 3 1 # Bowel Movements 0 (Derek Darling MD R2) Result Diagram: 05/01/1744 05/01/17 0644 Objective Remarks GENERAL: Well-nourished, well-developed male lying in bed watching TV and eating breakfast in no acute distress. On exam the pt is itching his legs where scars are and re-opening wounds. SKIN: Warm and dry. No rash. Left lower extremity: Large area of erythema with numerous yellow/green pustules surrounding chapin and calf of the extremity circumferentially. Erythema has improved since admission with pustules healing forming multiple eschars. Erythema at admission outlined by surgical pen previously. Currently nontender to palpation. 2+ popliteal, DP, and PT pulses with normal sensation and range of motion. 2+ edema. Foot on exam appears dry and cracking with no signs of ulceration or obvious infection. Eucerin cream applied bilaterally. Right lower extremity: Large area of erythema increased from admission without pustules along the chapin of the right lower extremity. Increased warmth compared to the left lower extremity. Extremity has increased in size during admission with 2+ edema likely due to fluid hydration. Improved from admission. Foot on exam appears dry and cracking and opening up with bleeding. Feet currently with Eucerin cream applied bilaterally. HEENT: Atraumatic, normocephalic with EOMI. MMM. No rhinorrhea. No visible LAD or JVD appreciated. CARDIOVASCULAR: Regular rate and rhythm with 1/6 systolic ejection murmur most obvious at the left sternal border appreciated. 2+ pulses in all 4 extremities. RESPIRATORY: Clear to auscultation bilaterally with no CRW. No increased work of breathing. GASTROINTESTINAL: Abdomen soft, non-tender, nondistended with positive bowel sounds. No masses appreciated. MUSCULOSKELETAL: No cyanosis. Strength grossly WNL. 2+ pulses in all 4 extremities. Please see as above for lower extremities. NEURO/PSYCH: Afocal. AAO 3. Patient continues with delusions that someone put "building material" near him in order to cause his cellulitis at admission. He denies any hallucinations.Currently with delusion that nursing staff is "throwing building materials into his room to infect him again." Normal speech. (Derek Darling MD R2) A/P Assessment and Plan Mr. Little is a 61 y/o M with history of asthma and chronic back pain presenting with left lower extremity erythema and pustular formation due to cellulitis of his left lower extremity plus DVT. Discharge Planning Pending therapeutic INR. Case management has been consult to assist with discharge with coumadin. Physical therapy currently recommends home with no PT recommended. (Derek Darling MD R2) Attending Attestation Patient seen and examined. Case reviewed and discussed with the resident team. Agree with plan of care as discussed with me and documented in the resident note. sadly, he is not improving or changing with his delusions. it could be a big struggle to keep him therapeutic on coumadin but keep talking to him every day (Nelly Smith MD) Problem List: (1) Cellulitis ICD Codes: L03.90 - Cellulitis, unspecified Status: Acute Plan: Patient presenting with extensive cellulitis of the left lower extremity from the knee to the ankle on the left and also with erythema on the right. -Chest x-ray: No acute disease, degenerative changes and scoliosis of the thoracolumbar spine -Left lower extremity ultrasound: Nonocclusive deep venous thrombosis within the left common femoral vein. Left inguinal lymphadenopathy which is nonspecific. -CBC: WBC count improving now currently within normal limits -CMP: Within normal limits -Lactic acid 1.7 -Blood cultures: Negative x 5 days -Wound culture: Group A strep, Staph aureus Medications: -2 L normal saline, aztreonam, and vancomycin given in ER -Vancomycin 1 g twice a day, consult pharmacy for dosage recommendations (04/27-) -Tolerating PO, normal saline to 50 mL an hour to keep IV established -Tylenol when necessary for fever or pain. -Toradol when necessary for breakthrough pain (DC 05/01) (2) Sepsis ICD Codes: A41.9 - Sepsis, unspecified organism Status: Acute Plan: Please see plan as above Patient currently presenting to the emergency department with cellulitis as well as sepsis (fever, leukocytosis, with site of infection his left lower extremity cellulitis). Patient also found to have 2/6 systolic ejection murmur at the left sternal border. She denies any history of endocarditis or other gram-positive cellulitis. blood cultures. -Echocardiogram: EF of 45-50%. Normal left ventricular size. Trace to mild mitral valve regurgitation. Mild tricuspid valve regurgitation. -Blood cultures: Negative to date -Please see plan as above (3) DVT (deep venous thrombosis) ICD Codes: I82.409 - Acute embolism and thrombosis of unspecified deep veins of unspecified lower extremity Status: Acute Plan: Patient found to have DVT of left lower extremity, with increased size of right lower extremity -Left lower extremity ultrasound: Nonocclusive deep venous thrombosis within the left common femoral vein. Left inguinal lymphadenopathy which is nonspecific. - Lovenox SQ BID for bridging -Coumadin 10 mg daily, titrate to INR goal 2.0-3.0 - f/u INR daily -SCD/TEDs (4) Paranoia ICD Codes: F22 - Delusional disorders Status: Acute Plan: Questionable compliance with Lovenox injections & Coumadin clinic on d/c with his delusions - Psych consult: done - no Domingo act. pt is not a harm to himself or anyone else. pt does not want help/medication. - Home Health Aid pending (5) Asthma ICD Codes: J45.909 - Unspecified asthma, uncomplicated Status: Chronic Plan: Albuterol duonebs q6 PRN Albuterol puff q2h PRN (6) Nutrition, metabolism, and development symptoms ICD Codes: R63.8 - Other symptoms and signs concerning food and fluid intake Plan: -Diet: Regular as tolerated -Fluids: Normal saline at 50 mL per hour with heparin drip -Electrolytes: Within normal limits, continue to monitor -Prophylaxis: Tylenol when necessary for fever/pain, Zofran when necessary for nausea/vomiting, and albuterol when necessary for shortness of breath -Drug screen: Positive for opiates -Alcohol level: Negative (Derek Draling MD R2) Problem Qualifiers (1) Cellulitis: Qualified Codes: L03.116 - Cellulitis of left lower limb (2) Sepsis: Qualified Codes: A41.9 - Sepsis, unspecified organism (3) DVT (deep venous thrombosis): Qualified Codes: I82.412 - Acute embolism and thrombosis of left femoral vein Derek Darling MD R2 May 02, 2017 10:20 Nelly Smith MD May 02, 2017 14:22
[2017-05-02 10:37] LABS: HEMATOCRIT 35.7 % (39.0-51.0); MEAN CELL VOLUME 90.2 FL (80.0-100.0); MEAN CORPUSCULAR HEMOGLOBIN 30.9 PG (27.0-34.0); MEAN CORPUSCULAR HGB CONC 34.3 % (32.0-36.0); PLATELET COUNT 233 TH/MM3 (150-450); RED BLOOD COUNT 3.95 MIL/MM3 (4.50-5.90); RED CELL DISTRIBUTION WIDTH 12.8 % (11.6-17.2); REVIEW FLAG FINAL; WHITE BLOOD COUNT 8.9 TH/MM3 (4.0-11.0)
[2017-05-02 10:44] LABS: INTERNATIONAL NORMALIZED RATIO 1.3 RATIO; PROTHROMBIN TIME - PATIENT 14.8 SEC (9.8-11.6)
[2017-05-02 11:12] LABS: BICARBONATE 28.4 MEQ/L (21.0-32.0); POTASSIUM 3.5 MEQ/L (3.5-5.1)
[2017-05-02 12:00] VITALS: BP 121/73; PULSE 59; RESP 20; TEMP 98.8; O2SAT 98
[2017-05-02 16:00] VITALS: BP 117/59; PULSE 60; RESP 18; TEMP 98.6; O2SAT 96
[2017-05-02] MEDS: WARFARIN SOD 5 MG TAB PO SCH (16:46)
[2017-05-02 20:00] VITALS: BP 129/69; PULSE 54; RESP 20; TEMP 98.7; O2SAT 98
[2017-05-03] VITALS: BP 125/65; PULSE 63; RESP 20; TEMP 97.9; O2SAT 97
[2017-05-03 04:00] VITALS: BP 128/68; PULSE 64; RESP 20; TEMP 98.7; O2SAT 98
[2017-05-03] MEDS: EUCERIN CREAM 120 GM JAR TOPICAL SCH ×4 (04:21→22:00)
[2017-05-03] MEDS: HYDROCORTISONE 1% LOTN 120 ML BTL TOPICAL SCH ×3 (05:50→22:00)
[2017-05-03 08:00] VITALS: BP 125/76; PULSE 60; RESP 17; TEMP 97.8; O2SAT 97
[2017-05-03] MEDS: SODIUM CHLORIDE 0.9% FLUSH 10 ML FLUSH IV FLUSH SCH ×2 (08:54→21:00)
[2017-05-03] MEDS: ENOXAPARIN SODIUM 80 MG/0.8 ML SYRINGE SQ SCH ×2 (08:54→22:33)
[2017-05-03 09:08] LABS: HEMATOCRIT 40.4 % (39.0-51.0); MEAN CELL VOLUME 90.8 FL (80.0-100.0); MEAN CORPUSCULAR HEMOGLOBIN 30.8 PG (27.0-34.0); MEAN CORPUSCULAR HGB CONC 33.9 % (32.0-36.0); PLATELET COUNT 317 TH/MM3 (150-450); RED BLOOD COUNT 4.45 MIL/MM3 (4.50-5.90); RED CELL DISTRIBUTION WIDTH 12.5 % (11.6-17.2); REVIEW FLAG FINAL; WHITE BLOOD COUNT 11.3 TH/MM3 (4.0-11.0)
[2017-05-03 09:17] LABS: INTERNATIONAL NORMALIZED RATIO 1.4 RATIO; PROTHROMBIN TIME - PATIENT 15.4 SEC (9.8-11.6)
[2017-05-03 09:23] LABS: BICARBONATE 27.5 MEQ/L (21.0-32.0); POTASSIUM 3.9 MEQ/L (3.5-5.1)
[2017-05-03] MEDS: VANCOMYCIN INJ 1,500 MG in SODIUM CHLORID 0.9% 500 ML INJ 500 ML IV SCH (10:38)
[2017-05-03 12:00] VITALS: BP 125/67; PULSE 64; RESP 18; TEMP 98.2; O2SAT 99
--- NOTE | 2017-05-03 12:18 | HHI.FPPN ---
Subjective Remarks Patient is seen and examined this a.m. Patient endorses that his legs are much improved and he feels that he is back to normal. Patient continues to ask questions about how he will take anticoagulation when he leaves and when he can be discharged. Patient would prefer to be on anticoagulation or he does not have to go and get labs every day. Patient has been eating lots of broccoli every day and large salads. This was before patient was aware of the Coumadin diet, however he now has the brochure. Patient confirms understanding of the diet and taking anticoagulation when he leaves. Patient denies any pain. Patient denies any fever/chills. Patient denies any chest pain/shortness of breath/dizziness. (Joana Medina MD R2) Objective Vitals Vital Signs Date Time Temp Pulse Resp B/P (MAP) Pulse Ox O2 Delivery O2 Flow Rate FiO2 05/03/17 08:00 97.8 60 17 125/76 (92) 97 05/03/17 04:00 98.7 64 20 128/68 (88) 98 05/03/17 00:00 97.9 63 20 125/65 (85) 97 05/02/17 20:00 98.7 54 20 129/69 (89) 98 05/02/17 16:00 98.6 60 18 117/59 (78) 96 I/O 05/02/17 05/02/17 05/02/17 05/03/17 05/03/17 05/03/17 07:00 15:00 23:00 07:00 15:00 23:00 Intake Total 660 ml Balance 660 ml IV Total 660 ml # Voids 1 2 1 (Joana Medina MD R2) Result Diagram: 05/03/17 0842 05/03/17 0842 Objective Remarks GENERAL: Well-nourished, well-developed male lying in bed watching TV and eating breakfast in no acute distress. On exam the pt is itching his legs where scars are and re-opening wounds. SKIN: Warm and dry. No rash. Left lower extremity: Large area (non-erythemetous) with numerous scars and healing eschars (from previous itching and picking of area). Currently nontender to palpation. 2+ popliteal, DP, and PT pulses with normal sensation and range of motion. 2+ edema. Right lower extremity: No Erythema or swelling HEENT: Atraumatic, normocephalic with EOMI. MMM. No rhinorrhea. No visible LAD or JVD appreciated. CARDIOVASCULAR: Regular rate and rhythm with 1/6 systolic ejection murmur most obvious at the left sternal border appreciated. 2+ pulses in all 4 extremities. RESPIRATORY: Clear to auscultation bilaterally with no CRW. No increased work of breathing. GASTROINTESTINAL: Abdomen soft, non-tender, nondistended with positive bowel sounds. No masses appreciated. MUSCULOSKELETAL: No cyanosis. Strength grossly WNL. 2+ pulses in all 4 extremities. Please see as above for lower extremities. NEURO/PSYCH: Afocal. AAO 3. Patient continues with delusions that someone put "building material" near him in order to cause his cellulitis at admission. He denies any hallucinations.Currently with delusion that nursing staff is "throwing building materials into his room to infect him again." Normal speech. (Joana Medina MD R2) A/P Assessment and Plan Mr. Little is a 61 y/o M with history of asthma and chronic back pain presenting with left lower extremity erythema and pustular formation due to cellulitis of his left lower extremity plus DVT. Discharge Planning Pending therapeutic INR. Case management has been consult to assist with discharge with coumadin. Physical therapy currently recommends home with no PT recommended. (Joana Medina MD R2) Attending Attestation Patient seen and examined. Case reviewed and discussed with the resident team. Agree with plan of care as discussed with me and documented in the resident note. it has been difficult to get his INR therapeutic. I happened to see him yesterday eating a huge leafy green salad for lunch and made sure he got his coumadin booklet. as reported he has been consuming huge amounts of broccoli and other greens. I would increase his coumadin to 15 but he says he will not eat any greens at all when he leaves the hospital so will increase coumadin to 12.5 mg and keep following (Nelly Smith MD) Problem List: (1) Cellulitis ICD Codes: L03.90 - Cellulitis, unspecified Status: Acute Plan: Patient presenting with extensive cellulitis of the left lower extremity from the knee to the ankle on the left and also with erythema on the right. -Chest x-ray: No acute disease, degenerative changes and scoliosis of the thoracolumbar spine -Left lower extremity ultrasound: Nonocclusive deep venous thrombosis within the left common femoral vein. Left inguinal lymphadenopathy which is nonspecific. -CBC: WBC count improving now currently within normal limits -CMP: Within normal limits -Lactic acid 1.7 -Blood cultures: Negative x 5 days -Wound culture: Group A strep, Staph aureus Medications: -2 L normal saline, aztreonam, and vancomycin given in ER -Vancomycin 1 g twice a day, consult pharmacy for dosage recommendations (04/27-) -Tolerating PO, normal saline to 50 mL an hour to keep IV established -Tylenol when necessary for fever or pain. -Toradol when necessary for breakthrough pain (DC 05/01) (2) Sepsis ICD Codes: A41.9 - Sepsis, unspecified organism Status: Acute Plan: Please see plan as above Patient currently presenting to the emergency department with cellulitis as well as sepsis (fever, leukocytosis, with site of infection his left lower extremity cellulitis). Patient also found to have 2/6 systolic ejection murmur at the left sternal border. She denies any history of endocarditis or other gram-positive cellulitis. blood cultures. -Echocardiogram: EF of 45-50%. Normal left ventricular size. Trace to mild mitral valve regurgitation. Mild tricuspid valve regurgitation. -Blood cultures: Negative to date -Please see plan as above (3) DVT (deep venous thrombosis) ICD Codes: I82.409 - Acute embolism and thrombosis of unspecified deep veins of unspecified lower extremity Status: Acute Plan: Patient found to have DVT of left lower extremity, with increased size of right lower extremity. Pt has been eating large salads and broccoli servings this week. Coumadin diet is reinforced today. -Left lower extremity ultrasound: Nonocclusive deep venous thrombosis within the left common femoral vein. Left inguinal lymphadenopathy which is nonspecific. - Lovenox SQ BID for bridging -Day #6 of coumadin initiation: s/p Coumadin 5mg x 2days, Coumadin 10mg x 3days - INR 1.4 (05/03) -Coumadin 12.5 mg daily (started 05/03), titrate to INR goal 2.0-3.0 - f/u INR daily -SCD/TEDs (4) Paranoia ICD Codes: F22 - Delusional disorders Status: Acute Plan: Questionable compliance with Lovenox injections & Coumadin clinic on d/c with his delusions - Psych consult: done - no Domingo act. pt is not a harm to himself or anyone else. pt does not want help/medication. - Home Health Aid pending (5) Asthma ICD Codes: J45.909 - Unspecified asthma, uncomplicated Status: Chronic Plan: Pt states he has asthma. We believe this is at least in part an effect of his delusions. Albuterol duonebs q6 PRN Albuterol puff q2h PRN (6) Nutrition, metabolism, and development symptoms ICD Codes: R63.8 - Other symptoms and signs concerning food and fluid intake Plan: -Diet: Regular as tolerated -Fluids: Normal saline at 50 mL per hour -Electrolytes: Within normal limits, continue to monitor -Prophylaxis: Tylenol when necessary for fever/pain, Zofran when necessary for nausea/vomiting, and albuterol when necessary for shortness of breath -Drug screen: Positive for opiates -Alcohol level: Negative (Joana Medina MD R2) Problem Qualifiers (1) Cellulitis: Qualified Codes: L03.116 - Cellulitis of left lower limb (2) Sepsis: Qualified Codes: A41.9 - Sepsis, unspecified organism (3) DVT (deep venous thrombosis): Qualified Codes: I82.412 - Acute embolism and thrombosis of left femoral vein Joana Medina MD R2 May 03, 2017 12:18 Nelly Smith MD May 03, 2017 12:54
[2017-05-03 16:00] VITALS: BP 130/74; PULSE 59; RESP 16; TEMP 98.3; O2SAT 98
[2017-05-03] MEDS: WARFARIN SOD 10 MG TAB PO SCH (17:50)
[2017-05-03] MEDS: WARFARIN SOD 2.5 MG TAB PO SCH (17:50)
--- NOTE | 2017-05-03 19:28 | HHI.FPPN ---
Addendum to progress note ADDENDUM Reason for addendum: Additonal documentation Additional information OFF SERVICE NOTE Mr. Little is a 61 y/o M that presented on 04/26 with bilateral lower leg cellulitis and a left femoral DVT. This pt is complicated because he has a delusional disorder (confirmed by psych) and is unreliable to take medications as an outpatient. He improved on Vanc x 7 days and it was d/c on 05/03. We have done a Lovenox bridge to coumadin, and have been titrating his INR. He is still not in therapeutic range after 6 days. Pt has been educated on warfarin diet and dosage is being adjusted. We hope to d/c PALOMO when he is in range. Joana Medina MD R2 May 03, 2017 19:28
[2017-05-03 20:00] VITALS: BP 113/65; PULSE 55; RESP 18; TEMP 97.8; O2SAT 97
[2017-05-03] MEDS: SODIUM CHLOR 0.9% 1000 ML INJ 1,000 ML IV SCH (21:44)
[2017-05-04] VITALS (7 sets, daily range): BP systolic 118–133; BP diastolic 62–78; PULSE 57–78; RESP 16–19; TEMP 96.8–98.5; O2SAT 96–98
[2017-05-04] MEDS: EUCERIN CREAM 120 GM JAR TOPICAL SCH ×4 (04:04→22:00)
[2017-05-04] MEDS: HYDROCORTISONE 1% LOTN 120 ML BTL TOPICAL SCH ×3 (05:05→22:00)
[2017-05-04 09:23] LABS: HEMATOCRIT 36.2 % (39.0-51.0); MEAN CELL VOLUME 90.4 FL (80.0-100.0); MEAN CORPUSCULAR HGB CONC 34.3 % (32.0-36.0); PLATELET COUNT 288 TH/MM3 (150-450); RED BLOOD COUNT 4.01 MIL/MM3 (4.50-5.90); RED CELL DISTRIBUTION WIDTH 13.2 % (11.6-17.2); REVIEW FLAG FINAL; WHITE BLOOD COUNT 8.6 TH/MM3 (4.0-11.0)
[2017-05-04 09:25] LABS: INTERNATIONAL NORMALIZED RATIO 1.6 RATIO; PROTHROMBIN TIME - PATIENT 18.1 SEC (9.8-11.6)
[2017-05-04] MEDS: ENOXAPARIN SODIUM 80 MG/0.8 ML SYRINGE SQ SCH ×2 (09:35→22:02)
[2017-05-04] MEDS: SODIUM CHLORIDE 0.9% FLUSH 10 ML FLUSH IV FLUSH SCH ×2 (09:35→21:00)
[2017-05-04 09:50] LABS: BICARBONATE 27.5 MEQ/L (21.0-32.0); POTASSIUM 3.8 MEQ/L (3.5-5.1)
--- NOTE | 2017-05-04 10:47 | HHI.FPPN ---
Subjective Remarks Patient seen and examined this morning by medical team. No acute events overnight per nursing staff. Vital signs remained stable. Patient states that he still believes the nursing staff is "throwing building materials into his room trying to make him sicker." Patient does state that his legs are greatly improved and feel much better. Patient still has concerns about anticoagulation and would like to be on a newer agent to avoid monitoring, however his insurance at this time will only cover Coumadin. Medical team again thoroughly discussed importance of follow-up regarding his INR and compliance of Coumadin diet. Otherwise he has no complaints and denies any fevers, chills, shortness of breath, chest pain, NVD, abdominal pain, or calf tenderness. (Derek Darling MD R2) Objective Vitals Vital Signs Date Time Temp Pulse Resp B/P (MAP) Pulse Ox O2 Delivery O2 Flow Rate FiO2 05/04/17 09:07 97 05/04/17 08:00 97.9 57 18 128/73 (91) 98 05/04/17 05:01 98.5 57 16 126/62 (83) 98 05/04/17 04:00 05/03/17 20:00 97.8 55 18 113/65 (81) 97 05/03/17 16:00 98.3 59 16 130/74 (92) 98 05/03/17 12:00 98.2 64 18 125/67 (86) 99 I/O 05/03/17 05/03/17 05/03/17 05/04/17 05/04/17 05/04/17 07:00 15:00 23:00 07:00 15:00 23:00 Intake Total 660 ml 500 ml 1860 ml 240 ml Balance 660 ml 500 ml 1860 ml 240 ml Intake Oral 1860 ml 240 ml IV Total 660 ml 500 ml # Voids 1 10 2 # Bowel Movements 1 (Derek Darling MD R2) Result Diagram: 05/04/17 0840 05/04/17 0840 Objective Remarks GENERAL: Well-nourished, well-developed male lying in bed watching TV in no acute distress. SKIN: Warm and dry. No rash. Left lower extremity: Large area (non-erythemetous) with numerous scars and healing eschars (from previous itching and picking of area). Currently nontender to palpation. 2+ popliteal, DP, and PT pulses with normal sensation and range of motion. 2+ edema. Greatly improved from admission exam. Right lower extremity: No Erythema or swelling Bilateral feet: Greatly improved with administration of Eucerin cream. HEENT: Atraumatic, normocephalic with EOMI. MMM. No rhinorrhea. No visible LAD or JVD appreciated. CARDIOVASCULAR: Regular rate and rhythm with 1/6 systolic ejection murmur most obvious at the left sternal border appreciated. 2+ pulses in all 4 extremities. RESPIRATORY: Clear to auscultation bilaterally with no CRW. No increased work of breathing. GASTROINTESTINAL: Abdomen soft, non-tender, nondistended with positive bowel sounds. No masses appreciated. MUSCULOSKELETAL: No cyanosis. Strength grossly WNL. 2+ pulses in all 4 extremities. Please see as above for lower extremities. NEURO/PSYCH: Afocal. AAO 3. Patient continues with delusions that someone put "building material" near him in order to cause his cellulitis at admission. He denies any hallucinations.Currently with delusion that nursing staff is "throwing building materials into his room to infect him again." Normal speech. (Derek Darling MD R2) A/P Assessment and Plan Mr. Little is a 61 y/o M with history of asthma and chronic back pain presenting with left lower extremity erythema and pustular formation due to cellulitis of his left lower extremity plus DVT. Discharge Planning Pending therapeutic INR. Case management has been consult to assist with discharge with coumadin. Physical therapy currently recommends home with no PT recommended. (Derek Darling MD R2) Attending Attestation Patient seen and examined. Case reviewed and discussed with the resident team. Agree with plan of care as discussed with me and documented in the resident note. walking in the [place]arrow and doing well today (Nelly Smith MD) Problem List: (1) Cellulitis ICD Codes: L03.90 - Cellulitis, unspecified Status: Acute Plan: Patient presenting with extensive cellulitis of the left lower extremity from the knee to the ankle on the left and also with erythema on the right. -Chest x-ray: No acute disease, degenerative changes and scoliosis of the thoracolumbar spine -Left lower extremity ultrasound: Nonocclusive deep venous thrombosis within the left common femoral vein. Left inguinal lymphadenopathy which is nonspecific. -CBC: WBC count improving now currently within normal limits -CMP: Within normal limits -Lactic acid 1.7 -Blood cultures: Negative x 5 days -Wound culture: Group A strep, Staph aureus (resistant to clindamycin and erythromycin) Medications: -2 L normal saline, aztreonam, and vancomycin given in ER -Vancomycin 1 g twice a day, consult pharmacy for dosage recommendations (04/27-) -Tolerating PO, normal saline to 50 mL an hour to keep IV established -Tylenol when necessary for fever or pain. -Toradol when necessary for breakthrough pain (DC 05/01) (2) Sepsis ICD Codes: A41.9 - Sepsis, unspecified organism Status: Acute Plan: Please see plan as above Patient currently presenting to the emergency department with cellulitis as well as sepsis (fever, leukocytosis, with site of infection his left lower extremity cellulitis). Patient also found to have 2/6 systolic ejection murmur at the left sternal border. She denies any history of endocarditis or other gram-positive cellulitis. blood cultures. -Echocardiogram: EF of 45-50%. Normal left ventricular size. Trace to mild mitral valve regurgitation. Mild tricuspid valve regurgitation. -Blood cultures: Negative to date -Please see plan as above (3) DVT (deep venous thrombosis) ICD Codes: I82.409 - Acute embolism and thrombosis of unspecified deep veins of unspecified lower extremity Status: Acute Plan: Patient found to have DVT of left lower extremity, with increased size of right lower extremity. Pt has been eating large salads and broccoli servings this week. Coumadin diet is reinforced today. -Left lower extremity ultrasound: Nonocclusive deep venous thrombosis within the left common femoral vein. Left inguinal lymphadenopathy which is nonspecific. - Lovenox SQ BID for bridging -Day #6 of coumadin initiation: s/p Coumadin 5mg x 2days, Coumadin 10mg x 3days - INR 1.6 (05/04) -Coumadin 12.5 mg daily (started 05/03), titrate to INR goal 2.0-3.0 - f/u INR daily -SCD/TEDs (4) Paranoia ICD Codes: F22 - Delusional disorders Status: Acute Plan: Questionable compliance with Lovenox injections & Coumadin clinic on d/c with his delusions - Psych consult: No Domingo act as pt is not a harm to himself or anyone else. pt does not want help/medication. - Home Health Aid pending (5) Asthma ICD Codes: J45.909 - Unspecified asthma, uncomplicated Status: Chronic Plan: Pt states he has asthma. We believe this is at least in part an effect of his delusions. Albuterol duonebs q6 PRN Albuterol puff q2h PRN (6) Nutrition, metabolism, and development symptoms ICD Codes: R63.8 - Other symptoms and signs concerning food and fluid intake Plan: -Diet: Regular as tolerated -Fluids: Normal saline at 50 mL per hour -Electrolytes: Within normal limits, continue to monitor -Prophylaxis: Tylenol when necessary for fever/pain, Zofran when necessary for nausea/vomiting, and albuterol when necessary for shortness of breath -Drug screen: Positive for opiates -Alcohol level: Negative (Derek Darling MD R2) Problem Qualifiers (1) Cellulitis: Qualified Codes: L03.116 - Cellulitis of left lower limb (2) Sepsis: Qualified Codes: A41.9 - Sepsis, unspecified organism (3) DVT (deep venous thrombosis): Qualified Codes: I82.412 - Acute embolism and thrombosis of left femoral vein Derek Darling MD R2 May 04, 2017 10:47 Nelly Smith MD May 04, 2017 16:19
[2017-05-04] MEDS: WARFARIN SOD 2.5 MG TAB PO SCH (16:11)
[2017-05-04] MEDS: WARFARIN SOD 10 MG TAB PO SCH (16:11)
[2017-05-04] MEDS: SODIUM CHLOR 0.9% 1000 ML INJ 1,000 ML IV SCH (17:44)
[2017-05-05] MEDS: EUCERIN CREAM 120 GM JAR TOPICAL SCH ×4 (04:01→23:21)
[2017-05-05 05:24] VITALS: BP 116/68; PULSE 56; RESP 18; TEMP 97.8; O2SAT 98
[2017-05-05] MEDS: HYDROCORTISONE 1% LOTN 120 ML BTL TOPICAL SCH ×3 (05:26→23:21)
[2017-05-05 08:00] VITALS: BP 126/72; PULSE 55; RESP 18; TEMP 97.9; O2SAT 98
[2017-05-05 08:59] LABS: HEMATOCRIT 36.2 % (39.0-51.0); MEAN CELL VOLUME 91.3 FL (80.0-100.0); MEAN CORPUSCULAR HEMOGLOBIN 31.8 PG (27.0-34.0); MEAN CORPUSCULAR HGB CONC 34.9 % (32.0-36.0); PLATELET COUNT 311 TH/MM3 (150-450); RED BLOOD COUNT 3.96 MIL/MM3 (4.50-5.90); RED CELL DISTRIBUTION WIDTH 13.2 % (11.6-17.2); REVIEW FLAG FINAL; WHITE BLOOD COUNT 7.9 TH/MM3 (4.0-11.0)
[2017-05-05 09:07] LABS: INTERNATIONAL NORMALIZED RATIO 1.9 RATIO; PROTHROMBIN TIME - PATIENT 21.4 SEC (9.8-11.6)
[2017-05-05] MEDS: ENOXAPARIN SODIUM 80 MG/0.8 ML SYRINGE SQ SCH ×2 (09:34→23:21)
[2017-05-05] MEDS: SODIUM CHLORIDE 0.9% FLUSH 10 ML FLUSH IV FLUSH SCH ×2 (09:36→23:24)
[2017-05-05 12:00] VITALS: BP 121/74; PULSE 60; RESP 18; TEMP 97.6; O2SAT 100
[2017-05-05 12:15] LABS: BICARBONATE 25.9 MEQ/L (21.0-32.0)
[2017-05-05] MEDS: SODIUM CHLOR 0.9% 1000 ML INJ 1,000 ML IV SCH (13:44)
--- NOTE | 2017-05-05 14:25 | HHI.FPPN ---
Subjective Remarks Patient seen and examined this morning by medical team. No acute events overnight or complaints. Vital signs have remained stable. Patient continues to verbalize concerns about his ex- exposing him to building materials that could lead to more DVTs. The team did not endorse this idea but stressed the importance of following up his INR and staying compliant on his anticoagulation therapy to avoid future/worsening DVTs. Patient requests copies of his liver enzymes at discharge to take to his pain management physician. Denies fever, chills, SOB, CP, NVD. (Stas Dela Cruz MD R1) Objective Vitals Vital Signs Date Time Temp Pulse Resp B/P (MAP) Pulse Ox O2 Delivery O2 Flow Rate FiO2 05/05/17 12:00 97.6 60 18 121/74 (90) 100 05/05/17 08:00 97.9 55 18 126/72 (90) 98 05/05/17 05:24 97.8 56 18 116/68 (84) 98 05/04/17 21:59 98.1 66 18 118/78 (91) 97 05/04/17 18:08 98 05/04/17 16:00 96.8 78 19 128/68 (88) 98 I/O 05/04/17 05/04/17 05/04/17 05/05/17 05/05/17 05/05/17 06:59 14:59 22:59 06:59 14:59 22:59 Intake Total 240 ml 780 ml 240 ml Balance 240 ml 780 ml 240 ml Intake Oral 240 ml 780 ml 240 ml # Voids 2 1 (Stas Dela Cruz MD R1) Result Diagram: 05/05/1780405/05/17804 Objective Remarks GENERAL: Well-nourished, well-developed male walking around his room in [facility]. SKIN: Warm and dry. No rash. Left lower extremity is hyperpigmented distal to the knee. Visually larger than the R leg. Not tender to palpation, no bleeding or drainage. 2+ popliteal, DP, and PT pulses with normal sensation and range of motion. 2+ edema. HEENT: Atraumatic, normocephalic with EOMI. MMM. No rhinorrhea. No visible LAD or JVD appreciated. CARDIOVASCULAR: Regular rate and rhythm with 1/6 systolic ejection murmur most obvious at the left sternal border appreciated. RESPIRATORY: Clear to auscultation bilaterally with no CRW. No increased work of breathing. GASTROINTESTINAL: Abdomen soft, non-tender, nondistended with positive bowel sounds. No masses appreciated. MUSCULOSKELETAL: No cyanosis. Strength grossly WNL. 2+ pulses in all 4 extremities. Please see as above for lower extremities. NEURO/PSYCH: Afocal. AAO 3. Patient continues with delusions that someone put "building material" near him in order to cause his cellulitis at admission. States that he doesn't plan to hurt anyone on discharge but continues to worry that his ex- and her patrol police sergeant boyfriend will continue to expose him to building materials. Normal speech. (Stas Dela Cruz MD R1) A/P Assessment and Plan Mr. Little is a 61 y/o M with history of asthma and chronic back pain presenting with left lower extremity erythema and pustular formation due to cellulitis of his left lower extremity plus DVT. Discharge Planning Pending therapeutic INR. Case management has been consult to assist with discharge with coumadin. Physical therapy currently recommends home with no PT recommended. (Stas Dela Cruz MD R1) Attending Attestation Patient seen and examined. Case reviewed and discussed with the resident team. Agree with plan of care as discussed with me and documented in the resident note. difficult medicine to control is coumadin but we are stuck with this from his Insurance company. his delusions may keep him from taking proper care of his medical problems. will call his primary Dr when he is leaving hospital to be sure Dr Cunningham knows he is on coumadin. anticipate d/c tomorrow (Nelly Smith MD) Problem List: (1) Cellulitis ICD Codes: L03.90 - Cellulitis, unspecified Status: Acute Plan: Patient presenting with extensive cellulitis of the left lower extremity from the knee to the ankle on the left and also with erythema on the right. -Chest x-ray: No acute disease, degenerative changes and scoliosis of the thoracolumbar spine -Left lower extremity ultrasound: Nonocclusive deep venous thrombosis within the left common femoral vein. Left inguinal lymphadenopathy which is nonspecific. -CBC: WBC count improving now currently within normal limits -CMP: Within normal limits -Blood cultures: Negative x 5 days -Wound culture: Group A strep, Staph aureus (resistant to clindamycin and erythromycin) -Completed 7 days of Vancomycin (04/27-05/03) - no antibiotics at this time. Medications: -2 L normal saline, aztreonam, and vancomycin given in ER -Tolerating PO, normal saline to 50 mL an hour to keep IV established -Tylenol when necessary for fever or pain. (2) Sepsis ICD Codes: A41.9 - Sepsis, unspecified organism Status: Acute Plan: Please see plan as above Patient presented to the emergency department with cellulitis as well as sepsis (fever, leukocytosis, with site of infection his left lower extremity cellulitis). Patient also found to have 2/6 systolic ejection murmur at the left sternal border. He denies any history of endocarditis or other gram-positive cellulitis. blood cultures. -Echocardiogram: EF of 45-50%. Normal left ventricular size. Trace to mild mitral valve regurgitation. Mild tricuspid valve regurgitation. -Blood cultures: Negative to date -No longer meets sepsis criteria. (3) DVT (deep venous thrombosis) ICD Codes: I82.409 - Acute embolism and thrombosis of unspecified deep veins of unspecified lower extremity Status: Acute Plan: Patient found to have DVT of left lower extremity, with increased size of right lower extremity. -Left lower extremity ultrasound: Nonocclusive deep venous thrombosis within the left common femoral vein. Left inguinal lymphadenopathy which is nonspecific. -Lovenox SQ BID for bridging -Day #7 of coumadin initiation: s/p Coumadin 5mg x 2days, Coumadin 10mg x 3days - INR 1.9 (05/05) -Coumadin 12.5 mg daily (started 05/03), titrate to INR goal 2.0-3.0 -f/u INR daily -SCD/TEDs -Will contact PCP to discuss follow up INR's after d/c (4) Paranoia ICD Codes: F22 - Delusional disorders Status: Acute Plan: Questionable compliance with Lovenox injections & Coumadin clinic on d/c with his delusions - Psych consult: No Domingo act as pt is not a harm to himself or anyone else. pt does not want help/medication. - CM most recent note stating patient was denied C and sent the referral to [facility]. (5) Asthma ICD Codes: J45.909 - Unspecified asthma, uncomplicated Status: Chronic Plan: Pt states he has asthma. We believe this is at least in part an effect of his delusions. No complaints of SOB at this time. Albuterol duonebs q6 PRN Albuterol puff q2h PRN (6) Nutrition, metabolism, and development symptoms ICD Codes: R63.8 - Other symptoms and signs concerning food and fluid intake Plan: -Diet: Regular as tolerated -Fluids: Normal saline at 50 mL per hour -Electrolytes: Within normal limits, continue to monitor -Prophylaxis: Tylenol when necessary for fever/pain, Zofran when necessary for nausea/vomiting, and albuterol when necessary for shortness of breath, anticoagulations as discussed above -Drug screen: Positive for opiates -Alcohol level: Negative (Stas Dela Cruz MD R1) Problem Qualifiers (1) Cellulitis: Qualified Codes: L03.116 - Cellulitis of left lower limb (2) Sepsis: Qualified Codes: A41.9 - Sepsis, unspecified organism (3) DVT (deep venous thrombosis): Qualified Codes: I82.412 - Acute embolism and thrombosis of left femoral vein Stas Dela Cruz MD R1 May 05, 2017 14:25 Nelly Smith MD May 05, 2017 16:39
[2017-05-05 16:00] VITALS: BP 138/75; PULSE 53; RESP 18; TEMP 97.9; O2SAT 99
[2017-05-05] MEDS: WARFARIN SOD 10 MG TAB PO SCH (16:49)
[2017-05-05] MEDS: WARFARIN SOD 2.5 MG TAB PO SCH (16:49)
[2017-05-05 23:01] VITALS: BP 136/78; PULSE 67; RESP 17; TEMP 97.6; O2SAT 98
[2017-05-06] MEDS: EUCERIN CREAM 120 GM JAR TOPICAL SCH ×2 (04:00→08:21)
[2017-05-06 04:12] VITALS: BP 108/58; PULSE 57; RESP 16; TEMP 97.7; O2SAT 96
[2017-05-06] MEDS: HYDROCORTISONE 1% LOTN 120 ML BTL TOPICAL SCH ×2 (07:58→13:38)
[2017-05-06 08:00] VITALS: BP 134/65; PULSE 55; RESP 19; TEMP 97.7; O2SAT 96
[2017-05-06] MEDS: SODIUM CHLORIDE 0.9% FLUSH 10 ML FLUSH IV FLUSH SCH (08:20)
[2017-05-06] MEDS: SODIUM CHLOR 0.9% 1000 ML INJ 1,000 ML IV SCH (08:20)
[2017-05-06] MEDS: ENOXAPARIN SODIUM 80 MG/0.8 ML SYRINGE SQ SCH (08:20)
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
[2017-05-06 11:38] LABS: AUTOMATED NEUTROPHIL # 5.1 TH/MM3 (1.8-7.7); BASOPHIL # 0.1 TH/MM3 (0-0.2); BASOPHIL % 0.7 % (0.0-2.0); EOSINOPHIL # 0.3 TH/MM3 (0-0.4); HEMATOCRIT 37.6 % (39.0-51.0); HEMO FLAGS DIFF FINAL; INTERNATIONAL NORMALIZED RATIO 2.6 RATIO; LYMPH % 20.1 % (9.0-44.0); LYMPHOCYTE # 1.5 TH/MM3 (1.0-4.8); MEAN CELL VOLUME 91.3 FL (80.0-100.0); MEAN CORPUSCULAR HEMOGLOBIN 30.9 PG (27.0-34.0); MEAN CORPUSCULAR HGB CONC 33.9 % (32.0-36.0); MONO % 8.1 % (0.0-8.0); NEUT % 67.1 % (16.0-70.0); PLATELET COUNT 319 TH/MM3 (150-450); PROTHROMBIN TIME - PATIENT 29.6 SEC (9.8-11.6); RED BLOOD COUNT 4.12 MIL/MM3 (4.50-5.90); RED CELL DISTRIBUTION WIDTH 13.7 % (11.6-17.2); WHITE BLOOD COUNT 7.6 TH/MM3 (4.0-11.0)
[2017-05-06 12:00] VITALS: BP 113/64; PULSE 76; RESP 19; TEMP 98.1; O2SAT 97
[2017-05-06] MEDS ORDERED: Eucerin Cream TOPICAL (12:24)
[2017-05-06] MEDS ORDERED: VENTAER INH (12:24)
[2017-05-06] MEDS ORDERED: HYDR1LOT8 TOPICAL (12:24)
[2017-05-06] MEDS ORDERED: ALBU0.08 NEB (12:24)
[2017-05-06] MEDS ORDERED: SYMB160A INH (12:24)
--- NOTE | 2017-05-06 13:01 | HHI.DCPOC ---
Discharge Care Plan Diagnosis: (1) DVT (deep venous thrombosis) (2) Cellulitis Goals to Promote Your Health * To prevent worsening of your condition and complications, please take warfarin as directed and follow up with PCP as discussed * To maintain your health at the optimal level Directions to Meet Your Goals Take your medications as prescribed Follow your dietary instruction Follow activity as directed Keep your appointments as scheduled Take your immunizations and boosters as scheduled If your symptoms worsen call your PCP, if no PCP go to Urgent Care Center or Emergency Room Smoking is Dangerous to Your Health. Avoid second hand smoke Call the 24-hour hour crisis hotline for domestic abuse at Sally Rutledge MD R2 May 06, 2017 13:01
[2017-05-06] MEDS ORDERED: COUM10TA PO (14:24)
[2017-05-06] MEDS ORDERED: COUM2.5T PO (14:24)
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
== END 2017-05-06 15:39 | disposition home or self-care (01) | DRG 872 ==
LOC: NEPC 16:13 → NEDH 19:46 → NEPGCP 23:26 → N05A 05-01 03:10
PROVIDERS: ADMIT Family Medicine; ATTEND Family Medicine
DX: A41.9 Sepsis, unspecified organism (principal); I82.412 Acute embolism and thrombosis of left femoral vein; F22 Delusional disorders; I08.1 Rheumatic disorders of both mitral and tricuspid valves; L03.116 Cellulitis of left lower limb; J45.909 Unspecified asthma, uncomplicated; G89.29 Other chronic pain; B95.0 Streptococcus, group A, as the cause of diseases classified elsewhere; B95.61 Methicillin susceptible Staphylococcus aureus infection as the cause of diseases classified elsewhere; R60.0 Localized edema; Z88.1 Allergy status to other antibiotic agents; Z88.0 Allergy status to penicillin; Z88.2 Allergy status to sulfonamides; Z88.8 Allergy status to other drugs, medicaments and biological substances
CPT/HCPCS: 71010; 80048; 80053; 80202; 80307; 81001; 82272; 82565; 83605; 85025; 85027; 85610; 85730; 86403; 87040; 87070; 87147; 87186; 87205; 93005; 93306; 93971; 94150; J1644; J1650; J3370; J7030; J7040; J7050

== ENCOUNTER 2017-05-09 21:40 | Emergency (ER) | payer MEDICAID ==
[~2017-05-09] VITALS: Ht 172.7 cm; Wt 80.0 kg
[~2017-05-09 21:40] MED LIST changes: +ALBU0.08 NEB; +COUM10TA PO; +COUM2.5T PO; +Eucerin Cream TOPICAL; -HYDR-3583 PO; +HYDR1LOT8 TOPICAL
[2017-05-09 21:42] VITALS: BP 116/61; PULSE 65; RESP 15; TEMP 98.6; O2SAT 96
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
[2017-05-09 22:26] LABS: AUTOMATED NEUTROPHIL # 6.3 TH/MM3 (1.8-7.7); BASOPHIL # 0.1 TH/MM3 (0-0.2); BASOPHIL % 0.9 % (0.0-2.0); EOSINOPHIL # 0.5 TH/MM3 (0-0.4); EOSINOPHIL % 4.9 % (0.0-4.0); HEMO FLAGS DIFF FINAL; LYMPH % 21.3 % (9.0-44.0); LYMPHOCYTE # 2.1 TH/MM3 (1.0-4.8); MEAN CELL VOLUME 90.3 FL (80.0-100.0); MEAN CORPUSCULAR HEMOGLOBIN 30.5 PG (27.0-34.0); MEAN CORPUSCULAR HGB CONC 33.8 % (32.0-36.0); MONO % 9.2 % (0.0-8.0); NEUT % 63.7 % (16.0-70.0); PLATELET COUNT 318 TH/MM3 (150-450); RED BLOOD COUNT 3.88 MIL/MM3 (4.50-5.90); RED CELL DISTRIBUTION WIDTH 13.3 % (11.6-17.2)
[2017-05-09 22:32] LABS: APTT (PATIENT) 30.8 SEC (24.3-30.1); PROTHROMBIN TIME - PATIENT 22.4 SEC (9.8-11.6)
[2017-05-09 22:42] LABS: ANION GAP 6 MEQ/L (5-15); AST (GOT) 26 U/L (15-37); BICARBONATE 27.3 MEQ/L (21.0-32.0); BLOOD UREA NITROGEN 18 MG/DL (7-18); CHLORIDE 104 MEQ/L (98-107); GLOMERULAR FILTRATION RATE 78 ML/MIN (>89); POTASSIUM 3.9 MEQ/L (3.5-5.1); SODIUM (NA) 137 MEQ/L (136-145)
[2017-05-09 22:46] LABS: ALKALINE PHOSPHATASE 90 U/L (45-117); ALT (GPT) 31 U/L (12-78); TOTAL BILIRUBIN ADULT 0.4 MG/DL (0.2-1.0)
--- NOTE | 2017-05-09 23:21 | RADRPT ---
EXAM DATE/TIME: 05/09/2017 22:23 [facility] COMPARISON: US LEG LEFT VENOUS DOPPLER, April 26, 2017, 18:19. US LEG BILATERAL VENOUS DOPPLER, July 08 16, 10:08. INDICATIONS : Bilateral leg swelling. MEDICAL HISTORY : Hypercholesterolemia. Chronic obstructive pulmonary disease. Cardiomyopathy. Asthma. Enlarged liver. Scoliosis. SURGICAL HISTORY : Tonsillectomy. ENCOUNTER: Subsequent ACUITY: 1 week PAIN SCORE: 0/10 LOCATION: Bilateral legs. TECHNIQUE: Venous ultrasound of the left and right leg was performed from the inguinal ligament to the proximal calf. Real-time, color Doppler and spectral tracing, compression and augmentation techniques were us ed. FINDINGS: RIGHT LEG: There is normal compressibility of the deep venous system from the inguinal region to the proximal ca lf. No echogenic clot is seen in the lumen of the common femoral, femoral, popliteal, and posterior tibial veins. There is a normal response of the venous system to proximal and distal augmentation an d respiration. LEFT LEG: There is normal compressibility of the deep venous system from the inguinal region to the proximal ca lf. No echogenic clot is seen in the lumen of the common femoral, femoral, popliteal, and posterior tibial veins. There is a normal response of the venous system to proximal and distal augmentation an d respiration. Bilateral inguinal lymph nodes measuring up to 14 mm in greatest short axis dimension are noted. Ther e is bilateral subcutaneous edema. Nothing organized or drainable seen. CONCLUSION: No DVT of either lower extremity. Maxwell Beal MD on May 09, 2017 at 23:18 Board Certified Radiologist. This report was verified electronically.
[2017-05-09] MEDS ORDERED: VENTAER INH (23:52)
== END 2017-05-10 00:01 | disposition home or self-care (01) ==
LOC: NEPE 21:40
DX: M79.89 Other specified soft tissue disorders (principal)
CPT/HCPCS: 80053; 85025; 85610; 85730; 93970; 99284

== ENCOUNTER 2017-05-14 15:37 | Observation (INO) | payer MEDICAID ==
[~2017-05-14] VITALS: Ht 172.7 cm; Wt 80.0 kg
[2017-05-14 15:38] VITALS: BP 130/60; PULSE 72; RESP 20; TEMP 98.8; O2SAT 97
--- NOTE | 2017-05-14 17:38 | PD ---
HPI Chief Complaint: Edema Time Seen by Provider: 17:37 Travel History International Travel<30 days: No Contact w/Intl Traveler<30days: No Traveled to known affect area: No History of Present Illness HPI 61 YO M with PMH of asthma and DVT, on Coumadin presents to the ED for evaluation of redness, pain and swelling of the left lower extremity. Patient endorses chills, has not measured a fever at home. He denies nausea and vomiting. He states that he was at his primary care today who recommended that he come to be evaluated for DVT. Patient states that he was recently admitted for cellulitis. He states that he was not provided any antibiotics at discharge. He states that "my is out to get me. She has a hat copyist in her pocket and they are throwing dust at me causing these infections." PFSH Past Medical History Hx Anticoagulant Therapy: Yes Asthma: Yes Blood Disorders: No Heart Rhythm Problems: No Cancer: No Cardiac Catheterization: No Cardiomyopathy: Yes Cardiovascular Problems: Yes (DVT) High Cholesterol: Yes Chemotherapy: No Chest Pain: Yes (about a month ago 03/2017) Congestive Heart Failure: No COPD: No Cerebrovascular Accident: No Diabetes: No Diminished Hearing: No Endocrine: No Genitourinary: No Heparin Induced Thrombocytopen: No Hypertension: No Immune Disorder: No Musculoskeletal: Yes Neurologic: No Psychiatric: No Reproductive: No Respiratory: Yes (ASTHMA) Immunizations Current: Yes Pneumonia: Yes Radiation Therapy: Yes Sleep Apnea: No Thyroid Disease: No Tetanus Vaccination: Unknown Past Surgical History Coronary Artery Bypass Graft: No Tonsillectomy: Yes ( A CHILD) Other Surgery: No Social History Alcohol Use: Yes (occas) Tobacco Use: No Substance Use: No Allergies-Medications (Allergen,Severity, Reaction): Coded Allergies: clindamycin (Unverified Allergy, Severe, Fatigue, 05/14/17) ipratropium (Unverified Allergy, Severe, CHEST PAIN, 05/14/17) propoxyphene (Unverified Allergy, Severe, NAUSEA, 05/14/17) ampicillin (Unverified Adverse Reaction, Severe, STATES MADE ABDOMEN UPTIGHT, 05/14/17) sulbactam (Unverified Adverse Reaction, Severe, STATES MADE ABDOMEN UPTIGHT, 05/14/17) levofloxacin (Unverified Adverse Reaction, Intermediate, Nausea/Vomiting, 05/14/17) penicillin G (Unverified Adverse Reaction, Intermediate, NAUSEA, 05/14/17) sulfamethoxazole (Unverified Adverse Reaction, Intermediate, 05/14/17) ABD PAIN trimethoprim (Unverified Adverse Reaction, Intermediate, 05/14/17) ABD PAIN Reported Meds & Prescriptions Reported Meds & Active Scripts Active Coumadin (Warfarin) 2.5 Mg Tab 2.5 Mg PO DAILY@1600 Coumadin (Warfarin) 10 Mg Tab 10 Mg PO DAILY@1600 Hydroskin (Hydrocortisone (Topical)) 1 % Lot 1 Applic TOPICAL Q8HR Ventolin Hfa 18 GM Inh (Albuterol Sulfate) 90 Mcg/Act Aer 2 Puff INH Q4H PRN Symbicort Inh (Budesonide/Formoterol Fumarate) 160-4.5 Mcg/Act Aero 1 Puff INH Q12HR Review of Systems Except as stated in HPI: all other systems reviewed are Neg Physical Exam Narrative GENERAL: Well-nourished, well-developed white male in no acute distress. PSYCHIATRIC: Paranoid. Delusional. SKIN: Focused skin assessment warm/dry. There are several small wounds with warmth and diffuse erythema on the left leg. There is marked edema to the knee. HEAD: Normocephalic. EYES: No scleral icterus. No injection or drainage. NECK: Supple, trachea midline. No JVD or lymphadenopathy. CARDIOVASCULAR: Regular rate and rhythm without murmurs, gallops, or rubs. RESPIRATORY: Breath sounds clear and equal bilaterally. No accessory muscle use. GASTROINTESTINAL: Abdomen soft, non-tender, nondistended. MUSCULOSKELETAL: No cyanosis. BACK: Nontender without obvious deformity. No CVA tenderness. Data Data Last Documented VS Vital Signs Date Time Temp Pulse Resp B/P (MAP) Pulse Ox O2 Delivery O2 Flow Rate FiO2 05/14/17 15:38 98.8 72 20 130/60 (83) 97 Room Air Orders Orders Complete Blood Count With Diff (05/14/17 17:33) Blood Culture (05/14/17 17:33) Iv Access Insert/Monitor (05/14/17 17:33) Comprehensive Metabolic Panel (05/14/17 17:33) Us Leg Venous Doppler (05/14/17 17:33) Westergren Sedimentation Rate (05/14/17 17:33) C-Reactive Protein (Crp) (05/14/17 17:33) Coag Profile (05/14/17 17:33) Sodium Chlor 0.9% 1000 Ml Inj (Ns 1000 M (05/14/17 17:45) Ketorolac Inj (Toradol Inj) (05/14/17 18:30) Vancomycin Inj (Vancomycin Inj) (05/14/17 19:15) Admit Order (Ed Use Only) (05/14/17 19:31) Labs Laboratory Tests Test 05/14/17 17:50 White Blood Count 13.5 TH/MM3 Red Blood Count 3.98 MIL/MM3 Hemoglobin 12.1 GM/DL Hematocrit 36.4 % Mean Corpuscular Volume 91.3 FL Mean Corpuscular Hemoglobin 30.5 PG Mean Corpuscular Hemoglobin Concent 33.4 % Red Cell Distribution Width 13.3 % Platelet Count 207 TH/MM3 Mean Platelet Volume 6.9 FL Neutrophils (%) (Auto) 78.4 % Lymphocytes (%) (Auto) 8.9 % Monocytes (%) (Auto) 9.0 % Eosinophils (%) (Auto) 2.8 % Basophils (%) (Auto) 0.9 % Neutrophils # (Auto) 10.6 TH/MM3 Lymphocytes # (Auto) 1.2 TH/MM3 Monocytes # (Auto) 1.2 TH/MM3 Eosinophils # (Auto) 0.4 TH/MM3 Basophils # (Auto) 0.1 TH/MM3 CBC Comment DIFF FINAL Differential Comment Erythrocyte Sedimentation Rate 46 mm/hr Prothrombin Time 37.6 SEC Prothromb Time International Ratio 3.2 RATIO Activated Partial Thromboplast Time 46.0 SEC Blood Urea Nitrogen 17 MG/DL Creatinine 1.01 MG/DL Random Glucose 87 MG/DL Total Protein 7.1 GM/DL Albumin 3.4 GM/DL Calcium Level 8.2 MG/DL Alkaline Phosphatase 83 U/L Aspartate Amino Transf (AST/SGOT) 14 U/L Alanine Aminotransferase (ALT/SGPT) 21 U/L Total Bilirubin 1.8 MG/DL Sodium Level 137 MEQ/L Potassium Level 3.5 MEQ/L Chloride Level 104 MEQ/L Carbon Dioxide Level 25.1 MEQ/L Anion Gap 8 MEQ/L Estimat Glomerular Filtration Rate 75 ML/MIN C-Reactive Protein 6.30 MG/DL [facility] Medical Decision Making Medical Screen Exam Complete: Yes Emergency Medical Condition: Yes Differential Diagnosis cellulitis versus DVT versus sepsis versus other Narrative Course 61-year-old male with PMH of DVT, on Coumadin presents to the ED for evaluation of pain, redness, swelling of the left lower extremity. Endorses accompanying chills but is otherwise asymptomatic. Patient is paranoid, states that his ex- and a chief contract officer causing these wounds. Per record review the patient was admitted on 04/26 and discharged on . He is diagnosed with cellulitis and DVT at the time. No antibiotics were prescribed at discharge. Patient is afebrile on presentation. Physical exam reveals a couple small wounds on the left lower extremity with diffuse erythema and warmth. The left leg is moderately edematous to the knee. IV was established. Patient was administered Toradol and 1L NS. CBC: WBC 13.5 with left shift. (7.6 on discharge.) CMP: BUN 17, creatinine 1.01. Bilirubin 1.8. Calcium 8.2 Coags: INR 3.2. ESR: 46 CRP 63 Lower extremity ultrasound: Negative for DVT. Review of the record reveals that the patient had a psych evaluation at last visit. Last blood cultures grew staph aureus and group A beta strep. 1 g vancomycin initiated in the ED. The patient has a recurrent cellulitis, his INR is also supratherapeutic. I discussed the results of the workup with the patient who is agreeable to admission. I spoke with Dr. Medellin who agrees to accept the patient to the medicine service. Please see medicine notes for disposition. Uyen Mcdaniel May 14, 2017 17:38
[2017-05-14] MEDS ORDERED: KETOROLAC TROMETHAMINE 60 MG/2 ML (IM) VIAL IM ONE (17:45)
[2017-05-14] MEDS ORDERED: SODIUM CHLOR 0.9% 1000 ML INJ 1,000 ML IV ONE (17:45)
[2017-05-14 18:02] LABS: AUTOMATED NEUTROPHIL # 10.6 TH/MM3 (1.8-7.7); BASOPHIL # 0.1 TH/MM3 (0-0.2); BASOPHIL % 0.9 % (0.0-2.0); EOSINOPHIL # 0.4 TH/MM3 (0-0.4); EOSINOPHIL % 2.8 % (0.0-4.0); HEMATOCRIT 36.4 % (39.0-51.0); HEMO FLAGS DIFF FINAL; LYMPH % 8.9 % (9.0-44.0); LYMPHOCYTE # 1.2 TH/MM3 (1.0-4.8); MEAN CELL VOLUME 91.3 FL (80.0-100.0); MEAN CORPUSCULAR HEMOGLOBIN 30.5 PG (27.0-34.0); MEAN CORPUSCULAR HGB CONC 33.4 % (32.0-36.0); NEUT % 78.4 % (16.0-70.0); PLATELET COUNT 207 TH/MM3 (150-450); RED BLOOD COUNT 3.98 MIL/MM3 (4.50-5.90); RED CELL DISTRIBUTION WIDTH 13.3 % (11.6-17.2); WHITE BLOOD COUNT 13.5 TH/MM3 (4.0-11.0)
[2017-05-14 18:08] LABS: INTERNATIONAL NORMALIZED RATIO 3.2 RATIO; PROTHROMBIN TIME - PATIENT 37.6 SEC (9.8-11.6)
--- NOTE | 2017-05-14 18:20 | RADRPT ---
EXAM DATE/TIME: 05/14/2017 17:41 [facility] COMPARISON: US LEG LEFT VENOUS DOPPLER, April 26, 2017, 18:19. INDICATIONS : Left leg swelling. MEDICAL HISTORY : Hypercholesterolemia. Chronic obstructive pulmonary disease. Asthma. Enlarged liver. Scoliosis. C ardiomyapathy. SURGICAL HISTORY : Tonsillectomy. ENCOUNTER: Initial ACUITY: 1 day PAIN SCORE: 2/10 LOCATION: Left leg. TECHNIQUE: Venous ultrasound of the leg was performed from the inguinal ligament to the proximal calf. Real-migue e, color Doppler and spectral tracing, compression and augmentation techniques were used. FINDINGS: There is normal compressibility of the deep venous system from the inguinal region to the proximal ca lf. No echogenic clot is seen in the lumen of the common femoral, femoral, popliteal, and posterior tibial veins. There is a normal response of the venous system to proximal and distal augmentation an d respiration. CONCLUSION: No DVT of the left lower extremity. Maxwell Beal MD on May 14, 2017 at 18:18 Board Certified Radiologist. This report was verified electronically.
[2017-05-14 18:28] LABS: ANION GAP 8 MEQ/L (5-15); AST (GOT) 14 U/L (15-37); BICARBONATE 25.1 MEQ/L (21.0-32.0); BLOOD UREA NITROGEN 17 MG/DL (7-18); CHLORIDE 104 MEQ/L (98-107); GLOMERULAR FILTRATION RATE 75 ML/MIN (>89); POTASSIUM 3.5 MEQ/L (3.5-5.1); SODIUM (NA) 137 MEQ/L (136-145)
[2017-05-14 18:29] LABS: ALT (GPT) 21 U/L (12-78)
[2017-05-14] MEDS ORDERED: KETOROLAC TROMETHAMINE 30 MG/ML (IVP) VIAL IV PUSH ONE (18:30)
[2017-05-14 18:32] LABS: ALKALINE PHOSPHATASE 83 U/L (45-117); TOTAL BILIRUBIN ADULT 1.8 MG/DL (0.2-1.0)
[2017-05-14] MEDS ORDERED: VANCOMYCIN INJ 1,000 MG in SODIUM CHLOR 0.9% 250 ML INJ 250 ML IV ONE (19:15)
[2017-05-14] MEDS ORDERED: NALOXONE HCL 0.4 MG/ML AMP IV PUSH PRN (21:15)
[2017-05-14] MEDS ORDERED: SODIUM CHLORIDE 0.9% FLUSH 10 ML FLUSH IV FLUSH PRN (21:15)
[2017-05-14] MEDS ORDERED: Vancomycin Consult Pharmacy 1 EA OTHER SCH (21:15)
[2017-05-14 22:13] VITALS: BP 112/61; PULSE 66; RESP 18; TEMP 98.7; O2SAT 100
[2017-05-15 01:25] VITALS: BP 116/67; PULSE 63; RESP 19; TEMP 98; O2SAT 96
[2017-05-15 04:09] VITALS: BP 117/60; PULSE 63; RESP 18; TEMP 98.1; O2SAT 99
[2017-05-15 06:17] LABS: AUTOMATED NEUTROPHIL # 6.4 TH/MM3 (1.8-7.7); BASOPHIL # 0.1 TH/MM3 (0-0.2); BASOPHIL % 0.9 % (0.0-2.0); EOSINOPHIL # 0.4 TH/MM3 (0-0.4); EOSINOPHIL % 5.2 % (0.0-4.0); HEMATOCRIT 34.4 % (39.0-51.0); HEMO FLAGS DIFF FINAL; LYMPH % 9.8 % (9.0-44.0); LYMPHOCYTE # 0.8 TH/MM3 (1.0-4.8); MEAN CELL VOLUME 91.7 FL (80.0-100.0); MEAN CORPUSCULAR HEMOGLOBIN 30.7 PG (27.0-34.0); MEAN CORPUSCULAR HGB CONC 33.5 % (32.0-36.0); MONO % 9.5 % (0.0-8.0); NEUT % 74.6 % (16.0-70.0); PLATELET COUNT 182 TH/MM3 (150-450); RED BLOOD COUNT 3.75 MIL/MM3 (4.50-5.90); WHITE BLOOD COUNT 8.6 TH/MM3 (4.0-11.0)
[2017-05-15 06:33] LABS: BICARBONATE 23.3 MEQ/L (21.0-32.0); POTASSIUM 3.8 MEQ/L (3.5-5.1)
[2017-05-15] MEDS ORDERED: VANCOMYCIN 1,000 MG/NS 250 ML IV SCH ×2 (08:00)
[2017-05-15 08:09] VITALS: BP 115/59; PULSE 67; RESP 17; TEMP 98.6; O2SAT 96
--- NOTE | 2017-05-15 08:23 | HHI.HP ---
[facility] Job Cunningham D.O. Admission Diagnosis recurrent cellulitis LLE, supratheraputic INR Diagnoses: (1) Lower extremity cellulitis Diagnosis: Principal (2) Paranoia Diagnosis: Principal (3) Asthma Diagnosis: Secondary Chief Complaint: Left lower extremity erythema and swelling Bilateral upper arm urticaria Travel History International Travel<30 Days: No Contact w/Intl Traveler <30 Da: No Traveled to Known Affected Are: No History of Present Illness Written by Skyla Hansen, acting as scribe for Dr. Byrd on 05/15/17 at 08:22. Mr. Little is a 61-year-old male patient with a known medical history of asthma, history of DVT and lower extremity cellulitis who presented to the ED with complains of continued left lower extremity erythema and swelling as well as bilateral upper extremity urticaria. Patient has a recent hospitalization on April 26, 2017 with new onset DVT, left lower extremity cellulitis and sepsis. At that time patient was positive for Group A strep, staph aureus and treated with Vancomycin for 7 days. Since that time patient states he went home and noticed improvement for some time but for the past several days his left lower extremity has become more warm, swollen and erythremic. He denies any antibiotic use since hospitalization. Denies any recent illness including fever , chills, cough, shortness of breath, abdominal pain, nausea, vomiting, diarrhea or dysuria. At the time of last hospitalization he was voicing statements of paranoia involving his ex- "having a copier operator in her pocket" and "people trying to mess with him putting construction dust in the ac ducts and making his bilateral upper arms itch". These statements have continued and denies having any problem with paranoia or needing help from psychiatry. At this time denies any suicidal ideation or plan. Does have a history of Asthma and has been well-controlled per patient. Review of Systems Constitutional: COMPLAINS OF: Chills, DENIES: Fever Respiratory: DENIES: Cough, Shortness of breath Gastrointestinal: DENIES: Black stools, Constipation, Diarrhea, Nausea, Vomiting ( ) Integumentary: COMPLAINS OF: Abnormal pigmentation (left lower extremity) Psychiatric: COMPLAINS OF: Anxiety, Agitation Except as stated in HPI: all other systems reviewed are Neg Past Family Social History Past Medical History Asthma Cardiomyopathy Hyperlipidemia History of DVT Past Surgical History Tonsillectomy Reported Medications Active Coumadin (Warfarin) 2.5 Mg Tab 2.5 Mg PO DAILY@1600 Coumadin (Warfarin) 10 Mg Tab 10 Mg PO DAILY@1600 Hydroskin (Hydrocortisone (Topical)) 1 % Lot 1 Applic TOPICAL Q8HR Ventolin Hfa 18 GM Inh (Albuterol Sulfate) 90 Mcg/Act Aer 2 Puff INH Q4H PRN Symbicort Inh (Budesonide/Formoterol Fumarate) 160-4.5 Mcg/Act Aero 1 Puff INH Q12HR Allergies: Coded Allergies: clindamycin (Unverified Allergy, Severe, Fatigue, 05/14/17) ipratropium (Unverified Allergy, Severe, CHEST PAIN, 05/14/17) propoxyphene (Unverified Allergy, Severe, NAUSEA, 05/14/17) ampicillin (Unverified Adverse Reaction, Severe, STATES MADE ABDOMEN UPTIGHT, 05/14/17) sulbactam (Unverified Adverse Reaction, Severe, STATES MADE ABDOMEN UPTIGHT, 05/14/17) levofloxacin (Unverified Adverse Reaction, Intermediate, Nausea/Vomiting, 05/14/17) penicillin G (Unverified Adverse Reaction, Intermediate, NAUSEA, 05/14/17) sulfamethoxazole (Unverified Adverse Reaction, Intermediate, 05/14/17) ABD PAIN trimethoprim (Unverified Adverse Reaction, Intermediate, 05/14/17) ABD PAIN Active Ordered Medications Current Medications Medications (Trade) Dose Ordered Sig/Ramos Route Start Time Stop Time Status Last Admin (NS Flush) 2 ml UNSCH PRN IV FLUSH 05/14/17 21:15 (NS Flush) 2 ml BID IV FLUSH 05/15/17 09:00 05/15/17 08:18 (Narcan Inj) 0.4 mg UNSCH PRN IV PUSH 05/14/17 21:15 Pharmacy Profile Note 0 ml @ 0 mls/hr UNSCH OTHER 05/14/17 21:15 Pharmacy Profile Note 0 ml @ 0 mls/hr UNSCH OTHER 05/14/17 21:15 Vancomycin HCl 1000 mg/Sodium Chloride 250 ml @ 250 mls/hr Q12H IV 05/15/17 08:00 05/15/17 10:00 05/15/17 08:19 Family History Maternal medical history significant for [place] and CHF. Paternal medical history significant for smoking history. Social History Patient states he is [id number]. Denies any current tobacco use, admits to occasional alcohol use and denies illicit drug use. Physical Exam Vital Signs Vital Signs Date Time Temp Pulse Resp B/P (MAP) Pulse Ox O2 Delivery O2 Flow Rate FiO2 05/15/17 08:09 98.6 67 17 115/59 (77) 96 05/15/17 04:09 98.1 63 18 117/60 (79) 99 05/15/17 01:25 98.0 63 19 116/67 (83) 96 05/14/17 22:13 98.7 66 18 112/61 (78) 100 05/14/17 15:38 98.8 72 20 130/60 (83) 97 Room Air Physical Exam GENERAL: This is a well-nourished, well-developed patient, lying in bed in no apparent distress. SKIN: No ecchymoses. Warm and dry. Left lower extremity 2+ edema noted, with diffuse erythema, no open areas, no drainage noted. DP and pedal pulses present , 2+. HEENT: Atraumatic. Normocephalic. Pupils equal round and reactive. Extraocular motions intact. No scleral icterus. No injection or drainage. Nose without bleeding. Airway patent. NECK: Trachea midline. No JVD. Supple. CARDIOVASCULAR: Regular rate and rhythm without murmurs, gallops, or rubs. S1 and S2 present. RESPIRATORY: Clear to auscultation. Breath sounds equal bilaterally. No wheezes , rales, or rhonchi. GASTROINTESTINAL: Abdomen soft, non-tender, nondistended. No guarding. MUSCULOSKELETAL: Extremities without clubbing, cyanosis, or edema. No joint tenderness, effusion, or edema noted. NEUROLOGICAL: Awake and alert, oriented x 3. Cranial nerves II through XII intact. Motor and sensory grossly within normal limits. Five out of 5 muscle strength in all muscle groups. Normal speech. PSYCH: Paranoid. Flight of ideas. Laboratory Laboratory Tests Test 05/14/17 17:50 05/15/17 05:21 White Blood Count 13.5 8.6 Red Blood Count 3.98 3.75 Hemoglobin 12.1 11.5 Hematocrit 36.4 34.4 Mean Corpuscular Volume 91.3 91.7 Mean Corpuscular Hemoglobin 30.5 30.7 Mean Corpuscular Hemoglobin Concent 33.4 33.5 Red Cell Distribution Width 13.3 14.0 Platelet Count 207 182 Mean Platelet Volume 6.9 7.3 Neutrophils (%) (Auto) 78.4 74.6 Lymphocytes (%) (Auto) 8.9 9.8 Monocytes (%) (Auto) 9.0 9.5 Eosinophils (%) (Auto) 2.8 5.2 Basophils (%) (Auto) 0.9 0.9 Neutrophils # (Auto) 10.6 6.4 Lymphocytes # (Auto) 1.2 0.8 Monocytes # (Auto) 1.2 0.8 Eosinophils # (Auto) 0.4 0.4 Basophils # (Auto) 0.1 0.1 CBC Comment DIFF FINAL DIFF FINAL Differential Comment Erythrocyte Sedimentation Rate 46 Prothrombin Time 37.6 35.0 Prothromb Time International Ratio 3.2 3.0 Activated Partial Thromboplast Time 46.0 Blood Urea Nitrogen 17 18 Creatinine 1.01 0.84 Random Glucose 87 97 Total Protein 7.1 Albumin 3.4 Calcium Level 8.2 8.0 Alkaline Phosphatase 83 Aspartate Amino Transf (AST/SGOT) 14 Alanine Aminotransferase (ALT/SGPT) 21 Total Bilirubin 1.8 Sodium Level 137 141 Potassium Level 3.5 3.8 Chloride Level 104 110 Carbon Dioxide Level 25.1 23.3 Anion Gap 8 8 Estimat Glomerular Filtration Rate 75 93 C-Reactive Protein 6.30 Date/Time Source Procedure Growth Status 05/14/17 17:43 Blood Peripheral Aerobic Blood Culture Pending Received 05/14/17 17:43 Blood Peripheral Anaerobic Blood Culture Pending Received Result Diagram: 05/15/1721 05/15/1721 Imaging Last Impressions Lower Extremity Ultrasound 05/14/17 [id number] Signed Impressions: Service Date/Time: Sunday, May 14, 2017 17:41 - CONCLUSION: No DVT of the left lower extremity. MD Matteo Howard VTE Risk Assessment Caprini VTE Risk Assessment: No/Low Risk (score <= 1) Caprini Risk Assessment Model Point Value = 1 Point Value = 2 Point Value = 3 Point Value = 5 Age 41-60 Minor surgery BMI > 25 kg/m2 Swollen legs Varicose veins or History of unexplained or recurrent spontaneous Oral contraceptives or hormone replacement Sepsis (< 1 month) Serious lung disease, including pneumonia (< 1 month) Abnormal pulmonary function Acute myocardial infarction Congestive heart failure (< 1 month) History of inflammatory bowel disease Medical patient at bed rest Age 61-74 Arthroscopic surgery Major open surgery (> 45 min) Laparoscopic surgery (> 45 min) Malignancy Confined to bed (> 72 hours) Immobilizing plaster cast Central venous access Age >= 75 History of VTE Family history of VTE Factor V Leiden Prothrombin [id number] Lupus anticoagulant Anticardiolipin antibodies Elevated serum homocysteine Heparin-induced thrombocytopenia Other congenital or acquired thrombophilia Stroke (< 1 month) Elective arthroplasty Hip, pelvis, or leg fracture Acute spinal cord injury (< 1 month) Prophylaxis Regimen Total Risk Factor Score Risk Level Prophylaxis Regimen 0-1 Low Early ambulation 2 Moderate Order ONE of the following: *Sequential Compression Device (SCD) *Heparin 5000 units SQ BID 3-4 Higher Order ONE of the following medications: *Heparin 5000 units SQ TID *Enoxaparin/Lovenox 40 mg SQ daily (WT < 150 kg, CrCl > 30 mL/min) *Enoxaparin/Lovenox 30 mg SQ daily (WT < 150 kg, CrCl > 10-29 mL/min) *Enoxaparin/Lovenox 30 mg SQ BID (WT < 150 kg, CrCl > 30 mL/min) AND/OR *Sequential Compression Device (SCD) 5 or more Highest Order ONE of the following medications: *Heparin 5000 units SQ TID (Preferred with Epidurals) *Enoxaparin/Lovenox 40 mg SQ daily (WT < 150 kg, CrCl > 30 mL/min) *Enoxaparin/Lovenox 30 mg SQ daily (WT < 150 kg, CrCl > 10-29 mL/min) *Enoxaparin/Lovenox 30 mg SQ BID (WT < 150 kg, CrCl > 30 mL/min) AND *Sequential Compression Device (SCD) Assessment and Plan Assessment and Plan Mr. Little is a 61-year-old male patient with a known medical history of asthma, history of DVT and lower extremity cellulitis who presented to the ED with complains of continued left lower extremity erythema and swelling as well as bilateral upper extremity urticaria. Patient has a recent hospitalization on April 26, 2017 with new onset DVT, left lower extremity cellulitis and sepsis. At that time patient was positive for Group A strep, staph aureus and treated with Vancomycin for 7 days. Since that time patient states he went home and noticed improvement for some time but for the past several days his left lower extremity has become more warm, swollen and erythremic. CBC: WBC 13.5 with left shift. (7.6 on discharge.) CMP: BUN 17, creatinine 1.01. Bilirubin 1.8. Calcium 8.2. Coags: INR 3.2. ESR : 46. CRP 63. Lower extremity ultrasound: Negative for DVT. Left lower extremity cellulitis - Lower extremity ultrasound reviewed showing no DVT of the left lower extremity. - Wound culture from previous admission on 04/26/17 positive for group A beta strep and staph aureus. - WBC 13.5 on presentation --> 8.6. Afebrile. Lower extremity with no open sores or drainage. - Blood cultures last admission were negative. Blood cultures obtained and pending. Follow. - Vancomycin IV x 1 given in ED. Now on Vancomycin 1.5 g IV q24hr. Bilateral forearm urticaria and rash possibly secondary to eczema - Will order Eucerin cream. Continue to assess. History of DVT on Coumadin with mildly supratherapeutic INR - INR 3.2 on presentation --> 3.0 now. Pharmacy consulted to dose, appreciate input. Follow daily. History of asthma: Continue home regimen. Delusional disorder: Previously seen by Dr. Monahan last admission. Note reviewed. Will reconsult for presence of paranoia and delusions. Appreciate further input. Patient refusing heart healthy diet, refusing telemetry and subjectively does not believe to have any paranoia. DVT prophylaxis: Coumadin. Will discharge patient to medical psych at this time to be further evaluated with further recommendations. Can receive IV antibiotics as needed and will be monitored there. Continue plan of care and all ordered medications. Follow with blood cultures. DC to med psych in stable condition F/u with PCP and consultants Diet regular as evelio Activity ad kd Med per med reconciliations This note was transcribed by EDGAR Jimenez. I, Dr. Carol Cosma personally performed the history, physical exam, and medical decision making; and confirmed the accuracy of the information in the transcribed note. Authenticated by Dr. Carol Byrd on 05/15/17 at 08:22. Problem Qualifiers (1) Lower extremity cellulitis: Qualified Codes: L03.116 - Cellulitis of left lower limb Skyla Hansen May 15, 2017 08:23 Carol Byrd MD May 15, 2017 11:17
[2017-05-15] MEDS ORDERED: SODIUM CHLORIDE 0.9% FLUSH 10 ML FLUSH IV FLUSH SCH (09:00)
--- NOTE | 2017-05-15 11:20 | HHI.DCPOC ---
Discharge Care Plan Goals to Promote Your Health * To prevent worsening of your condition and complications * To maintain your health at the optimal level Directions to Meet Your Goals Take your medications as prescribed Follow your dietary instruction Follow activity as directed Keep your appointments as scheduled Take your immunizations and boosters as scheduled If your symptoms worsen call your PCP, if no PCP go to Urgent Care Center or Emergency Room Smoking is Dangerous to Your Health. Avoid second hand smoke Call the 24-hour hour crisis hotline for domestic abuse at Carol Byrd MD May 15, 2017 11:20
[2017-05-15] MEDS ORDERED: EUCERIN CREAM 120 GM JAR TOPICAL PRN (11:30)
[2017-05-15 11:38] VITALS: BP 125/64; PULSE 72; RESP 17; TEMP 98.5; O2SAT 98
--- NOTE | 2017-05-15 12:24 | PD.PSY.CON ---
Provisional Diagnosis Admission Date May 14, 2017 at 19:33 Destin I. Unspecified psychosis, R/O delusional disorder, somatic type Destin II. Deferred Destin III. Asthma, lower back pain, lower legs her legs Destin IV. Poor social and family support Destin V. 40 History of Present Illness Service Psychiatry Consult Requested By ER team Reason for Consult Delusional disorder Primary Care Physician Job Cunningham D.O. 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 Monahan in the medical floor due to delusional thinking, as per Dr. Monahan on 04/28/2017 61-year-old male with fairly obvious delusional disorder of being poisoned in some fashion by some unknown item or items in his environment. Currently being seen and treated for cellulitis and DVT. Patient is apparently cooperative with his treatment, according to nurse. Patient does not wish to be treated psychiatrically. He denies any suicidal or homicidal ideation, plan or intent. He is not felt to be Domingo act bullet this time as he is willing to accept treatment and not in danger of imminent or irreversible arm with a known medical history of asthma, lower back pain, history of DVT and lower extremity cellulitis who presented to the ED with complains of continued left lower extremity erythema and swelling as well as bilateral upper extremity urticaria. Patient has a recent hospitalization on April 26, 2017 with new onset DVT, left lower extremity cellulitis and sepsis. At that time patient was positive for Group A strep, staph aureus and treated with Vancomycin for 7 days. Since that time patient states he went home and noticed improvement for some time but for the past several days his left lower extremity has become more warm, swollen and erythremic. He denies any antibiotic use since hospitalization. Denies any recent illness including fever, chills, cough, shortness of breath, abdominal pain, nausea, vomiting, diarrhea or dysuria. At the time of last hospitalization he was voicing statements of paranoia involving his ex- "having a copier technician in her pocket" and "people trying to mess with him putting construction dust in the ac ducts and making his bilateral upper arms itch". Patient was consulted to psychiatry to explore potential underlying major psychotic disorder and the need of hospitalization. On psychiatric evaluation today patient is found calm and cooperative. At the beginning, once I presented as a psychiatrist, patient became irritable stating that he is not here to see a psychiatrist and all his complains are real. Patient says that even though is difficult to believe "I can demonstrate, ex- is using a copier technician to come to me and introduce construction material he my legs and in my head, and that is the reason I am continuously having this cellulitis". He also says that most probably he has son "odd material he might blood". 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 Patient continuously says that his cellulitis is due to the fact that has started his material is introduced by a copier technician under his skin. Patient also uses very often at term "they"to refer to people that are following him and could be watching him in his house. But, he does not elaborate about the identity of these people. Patient seems to be suspicious, paranoid, with many statements with a delusional flavor. He denies depressive symptoms, he denies anxiety, he denies suicidal and homicidal ideation, he denies visual and auditory hallucinations. Denies the use of drugs and alcohol. Patient is fully oriented 3, no cognitive impairment, no attention deficit, no fluctuation of consciousness. Review of Systems Constitutional: DENIES: Diaphoretic episodes, Fatigue, Fever, Weight gain, Weight loss, Chills, Dizziness, Change in appetite, Night Sweats Endocrine: DENIES: Heat/cold intolerance, Polydipsia, Polyuria, Polyphagia Eyes: DENIES: Blurred vision, Diplopia, Eye inflammation, Eye pain, Vision loss , Photosensitivity, Double Vision Ears, nose, mouth, throat: DENIES: Tinnitus, Hearing loss, Vertigo, Nasal discharge, Oral lesions, Throat pain, Hoarseness, Ear Pain, Running Nose, Epistaxis, Sinus Pain, Toothache, Odynophagia Respiratory: DENIES: Apneas, Cough, Snoring, Wheezing, Hemoptysis, Sputum production, Shortness of breath Cardiovascular: DENIES: Chest pain, Palpitations, Syncope, Dyspnea on Exertion , PND, Lower Extremity Edema, Orthopnea, Claudication Gastrointestinal: DENIES: Abdominal pain, Black stools, Bloody stools, Constipation, Diarrhea, Nausea, Vomiting, Difficulty Swallowing, Anorexia Musculoskeletal: DENIES: Joint pain, Muscle aches, Stiffness, Joint Swelling, Back pain, Neck pain Integumentary: DENIES: Abnormal pigmentation, Nail changes, Pruritus, Rash Hematologic/lymphatic: DENIES: Bruising, Lymphadenopathy Immunologic/allergic: DENIES: Eczema, Urticaria Psychiatric: COMPLAINS OF: Delusions, DENIES: Anxiety, Confusion, Mood changes , Depression, Hallucinations, Agitation, Suicidal Ideation, Homicidal Ideation Other Left lower extremity cellulitis Past Family Social History Coded Allergies: clindamycin (Unverified Allergy, Severe, Fatigue, 05/14/17) ipratropium (Unverified Allergy, Severe, CHEST PAIN, 05/14/17) propoxyphene (Unverified Allergy, Severe, NAUSEA, 05/14/17) ampicillin (Unverified Adverse Reaction, Severe, STATES MADE ABDOMEN UPTIGHT, 05/14/17) sulbactam (Unverified Adverse Reaction, Severe, STATES MADE ABDOMEN UPTIGHT, 05/14/17) levofloxacin (Unverified Adverse Reaction, Intermediate, Nausea/Vomiting, 05/14/17) penicillin G (Unverified Adverse Reaction, Intermediate, NAUSEA, 05/14/17) sulfamethoxazole (Unverified Adverse Reaction, Intermediate, 05/14/17) ABD PAIN trimethoprim (Unverified Adverse Reaction, Intermediate, 05/14/17) ABD PAIN Active Scripts Warfarin (Coumadin) 2.5 Mg Tab, 2.5 MG PO DAILY@1600, #30 TAB Prov:Stas Dela Cruz MD R1 05/06/17 Warfarin (Coumadin) 10 Mg Tab, 10 MG PO DAILY@1600, #30 TAB Prov:Stas Dela Cruz MD R1 05/06/17 Hydrocortisone (Topical) (Hydroskin) 1 % Lot, 1 APPLIC TOPICAL Q8HR, #1 TUBE Prov:Stas Dela Cruz MD R1 05/06/17 Albuterol 18 GM Inh (Ventolin Hfa 18 GM Inh) 90 Mcg/Act Aer, 2 PUFF INH Q4H Y for SOB/WHEEZING, #1 INHALER Prov:Stas Dela Cruz MD R1 05/06/17 Budesonide-Formoterol Inh (Symbicort Inh) 160-4.5 Mcg/Act Aero, 1 PUFF INH Q12HR , #1 INHALER 1 Refill Prov:Stas Dela Cruz MD R1 05/06/17 Discontinued Scripts Albuterol 18 GM Inh (Ventolin Hfa 18 GM Inh) 90 Mcg/Act Aer, 2 PUFF INH Q4-6H Y for SHORTNESS OF BREATH, #1 INHALER 1 Refill Prov:Yvonne Ho MD 05/09/17 Albuterol Neb (Albuterol Neb) 2.5 Mg/3 Ml Neb, 2.5 MG NEB Q6HR NEB Y for SHORTNESS OF BREATH, #60 NEBULE Prov:Stas Dela Cruz MD R1 05/06/17 [Eucerin Cream] 120 APPLIC/120 GM CR No Conflict Check, 1 APPLIC TOPICAL Q6H Prov:Stas Dela Cruz MD R1 05/06/17 Current Medications Medications (Trade) Dose Ordered Sig/Ramos Route Start Time Stop Time Status Last Admin (NS Flush) 2 ml UNSCH PRN IV FLUSH 05/14/17 21:15 (NS Flush) 2 ml BID IV FLUSH 05/15/17 09:00 05/15/17 08:18 (Narcan Inj) 0.4 mg UNSCH PRN IV PUSH 05/14/17 21:15 Pharmacy Profile Note 0 ml @ 0 mls/hr UNSCH OTHER 05/14/17 21:15 Pharmacy Profile Note 0 ml @ 0 mls/hr UNSCH OTHER 05/14/17 21:15 Vancomycin HCl 1500 mg/Sodium Chloride 515 ml @ 257.5 mls/ hr Q24H IV 05/16/17 08:00 Miscellaneous Information SPECIFIC LAB TO BE ... 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 2) Verbal communication Physical Exam Patient has multiple erythematosus lesions in his left leg, no EPS, no tremors, no withdrawal symptoms, no gait disturbance observed. Vital Signs Vital Signs Date Time Temp Pulse Resp B/P (MAP) Pulse Ox O2 Delivery O2 Flow Rate FiO2 05/15/17 11:38 98.5 72 17 125/64 (84) 98 05/14/17 15:38 Room Air I/O 05/15/17 05/15/17 05/16/17 08:00 16:00 00:00 Intake Total 480 ml Output Total 150 ml Balance 330 ml Lab Results Test 05/14/17 17:50 05/15/17 05:21 White Blood Count 13.5 TH/MM3 8.6 TH/MM3 Red Blood Count 3.98 MIL/MM3 3.75 MIL/MM3 Hemoglobin 12.1 GM/DL 11.5 GM/DL Hematocrit 36.4 % 34.4 % Mean Corpuscular Volume 91.3 FL 91.7 FL Mean Corpuscular Hemoglobin 30.5 PG 30.7 PG Mean Corpuscular Hemoglobin Concent 33.4 % 33.5 % Red Cell Distribution Width 13.3 % 14.0 % Platelet Count 207 TH/MM3 182 TH/MM3 Mean Platelet Volume 6.9 FL 7.3 FL Neutrophils (%) (Auto) 78.4 % 74.6 % Lymphocytes (%) (Auto) 8.9 % 9.8 % Monocytes (%) (Auto) 9.0 % 9.5 % Eosinophils (%) (Auto) 2.8 % 5.2 % Basophils (%) (Auto) 0.9 % 0.9 % Neutrophils # (Auto) 10.6 TH/MM3 6.4 TH/MM3 Lymphocytes # (Auto) 1.2 TH/MM3 0.8 TH/MM3 Monocytes # (Auto) 1.2 TH/MM3 0.8 TH/MM3 Eosinophils # (Auto) 0.4 TH/MM3 0.4 TH/MM3 Basophils # (Auto) 0.1 TH/MM3 0.1 TH/MM3 CBC Comment DIFF FINAL DIFF FINAL Differential Comment Erythrocyte Sedimentation Rate 46 mm/hr Prothrombin Time 37.6 SEC 35.0 SEC Prothromb Time International Ratio 3.2 RATIO 3.0 RATIO Activated Partial Thromboplast Time 46.0 SEC Blood Urea Nitrogen 17 MG/DL 18 MG/DL Creatinine 1.01 MG/DL 0.84 MG/DL Random Glucose 87 MG/DL 97 MG/DL Total Protein 7.1 GM/DL Albumin 3.4 GM/DL Calcium Level 8.2 MG/DL 8.0 MG/DL Alkaline Phosphatase 83 U/L Aspartate Amino Transf (AST/SGOT) 14 U/L Alanine Aminotransferase (ALT/SGPT) 21 U/L Total Bilirubin 1.8 MG/DL Sodium Level 137 MEQ/L 141 MEQ/L Potassium Level 3.5 MEQ/L 3.8 MEQ/L Chloride Level 104 MEQ/L 110 MEQ/L Carbon Dioxide Level 25.1 MEQ/L 23.3 MEQ/L Anion Gap 8 MEQ/L 8 MEQ/L Estimat Glomerular Filtration Rate 75 ML/MIN 93 ML/MIN C-Reactive Protein 6.30 MG/DL Date/Time Source Procedure Growth Status 05/14/17 17:43 Blood Peripheral Aerobic Blood Culture - Preliminary NO GROWTH IN 1 DAY Resulted 05/14/17 17:43 Blood Peripheral Anaerobic Blood Culture - Preliminary NO GROWTH IN 1 DAY Resulted Mental Status Examination Appearance man, age appearing, [facility], irritable, but at the end calm and cooperative Speech: Unremarkable Orientation: x3 Memory: Unremarkable Thought Process: Circumstantial, Goal Directed, Linear Thought Content: Bizarre thinking, Paranoid Language Appropriate grammar, well-connected sentences, adequate wording Fund of Knowledge Adequate for level of education Hallucination Type: None Attention and Concentration: Good Suicidal Ideation: No Previous Suicide Attempts: No Homicidal Ideation: No Previous Homicide Attempts: No Insight: Poor Judgment: Poor Affect: Irritable Mood: Angry Motor Activity: Normal gait Assessment & Plan Problem List: (1) Unspecified psychosis ICD Codes: F29 - Unspecified psychosis not due to a substance or known physiological condition Assessment & Plan: On psychiatric evaluation the patient presents with fixed, continuous, with structure/complex delusional ideation of being followed by copier technician' s, instrumentation technician introducing hazardous material under his escaping and producing cellulitis, paranoia, and was seems to be grounded or delusions 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 Patient was seen by Dr. Monahan about 2 weeks ago with a very similar presentation. Since he was seen by Dr. Monahan the patient has been in they are with medical complaints in multiple medications. Even though the patient denies suicidal and homicidal ideation, visual and auditory hallucinations, he is oriented 3, without any gross cognitive impairment, logical and coherent in many aspects of his conversation, my fear is that there are delusional material in his thought content that might be actually interfering with his level of function and self care. For example, I suspect that the patient might be self inflicting skin lacerations in order to get out "material introduced by instrumentation technician" and this may be the reason of his cellulitis. I'm going to Domingo act and recommended admission due to increase level of delusions last paranoia that might be a danger to himself and even for others. Extensive support, motivation and psychoeducation has been provided. Would consider starting Risperdal 1 mg twice a day for psychosis. I have discussed the case with nurse in charge and Dr. Byrd. Patient will be transferred to the med psych unit. Assessment & Plan Estimated LOS: days Pepito Nava MD May 15, 2017 12:23
[2017-05-16] MEDS ORDERED: VANCOMYCIN 1,500 MG/NS 500 ML IV SCH ×2 (08:00)
[2017-05-18] MEDS ORDERED: PHARMACY ORDERED LAB ONE (07:45)
== END 2017-05-15 13:49 ==
LOC: NEPC 15:37 → NEDA 19:33 → NEPHCDU 21:43
PROVIDERS: ADMIT Hospitalist; ATTEND Hospitalist
DX: L03.116 Cellulitis of left lower limb (principal); F22 Delusional disorders; F29 Unspecified psychosis not due to a substance or known physiological condition; L50.9 Urticaria, unspecified; J45.909 Unspecified asthma, uncomplicated; E78.5 Hyperlipidemia, unspecified; Z86.718 Personal history of other venous thrombosis and embolism; Z79.01 Long term (current) use of anticoagulants
CPT/HCPCS: 96365; 96366; 96375; 96376; 99285; G0378; 80048; 80053; 85025; 85610; 85652; 85730; 86140; 87040; 93971; J1885; J3370; J7030; J7050

== ENCOUNTER 2017-05-15 14:16 | Inpatient (IN) | payer MEDICAID ==
[2017-05-15 14:00] VITALS: BP 163/111; PULSE 62; RESP 12; TEMP 98; O2SAT 100
[~2017-05-15 14:16] MED LIST changes: -ALBU0.08 NEB; -Eucerin Cream TOPICAL
[2017-05-15] MEDS ORDERED: HALOPERIDOL LACTATE 5 MG/ML AMP IM PRN (15:00)
[2017-05-15] MEDS ORDERED: MAGNESIUM HYDROXIDE SUSP 30 ML CUP PO PRN (15:15)
[2017-05-15] MEDS ORDERED: LORazepam 2 MG/ML VIAL IM PRN (15:15)
[2017-05-15] MEDS ORDERED: ACETAMINOPHEN 325 MG TAB PO PRN (15:15)
[2017-05-15] MEDS ORDERED: ALUMINUM/MAGNESIUM/SIMETH 30 ML CUP PO PRN (15:15)
[2017-05-15] MEDS ORDERED: LORazepam 1 MG TAB PO PRN (15:15)
--- NOTE | 2017-05-15 15:29 | PD.CONS ---
HPI Service [facility] Consult Requested By Dr. Nava Reason for Consult Medical management Primary Care Physician Job Cunningham D.O. Diagnoses: (1) Unspecified psychosis (2) Lower extremity cellulitis (3) Asthma (4) Paranoia History of Present Illness Written by Skyla Hansen, acting as scribe for Dr. Tijerina on 05/15/17 at 15:21. Mr. Little is a 61-year-old male patient with a known medical history of asthma, history of DVT and lower extremity cellulitis who presented to the ED with complains of continued left lower extremity erythema and swelling as well as bilateral upper extremity urticaria. Patient has a recent hospitalization on April 26, 2017 with new onset DVT, left lower extremity cellulitis and sepsis. At that time patient was positive for Group A strep, staph aureus and treated with Vancomycin for 7 days. Since that time patient states he went home and noticed improvement for some time but for the past several days his left lower extremity has become more warm, swollen and erythremic. He denies any antibiotic use since hospitalization. Denies any recent illness including fever , chills, cough, shortness of breath, abdominal pain, nausea, vomiting, diarrhea or dysuria. At the time of last hospitalization he was voicing statements of paranoia involving his ex- "having a fluoroscope operator in her pocket" and "people trying to mess with him putting construction dust in the ac ducts and making his bilateral upper arms itch". These statements have continued and denies having any problem with paranoia or needing help from psychiatry. At this time denies any suicidal ideation or plan. Does have a history of Asthma and has been well-controlled per patient. Review of Systems Constitutional: COMPLAINS OF: Chills, DENIES: Fever Respiratory: DENIES: Cough, Sputum production, Shortness of breath Cardiovascular: DENIES: Chest pain, Dyspnea on Exertion Integumentary: COMPLAINS OF: Abnormal pigmentation (left lower extremity) Psychiatric: COMPLAINS OF: Anxiety, Mood changes Except as stated in HPI: all other systems reviewed are Neg Past Family Social History Allergies: Coded Allergies: clindamycin (Unverified Allergy, Severe, Fatigue, 05/14/17) ipratropium (Unverified Allergy, Severe, CHEST PAIN, 05/14/17) propoxyphene (Unverified Allergy, Severe, NAUSEA, 05/14/17) ampicillin (Unverified Adverse Reaction, Severe, STATES MADE ABDOMEN UPTIGHT, 05/14/17) sulbactam (Unverified Adverse Reaction, Severe, STATES MADE ABDOMEN UPTIGHT, 05/14/17) levofloxacin (Unverified Adverse Reaction, Intermediate, Nausea/Vomiting, 05/14/17) penicillin G (Unverified Adverse Reaction, Intermediate, NAUSEA, 05/14/17) sulfamethoxazole (Unverified Adverse Reaction, Intermediate, 05/14/17) ABD PAIN trimethoprim (Unverified Adverse Reaction, Intermediate, 05/14/17) ABD PAIN Past Medical History Asthma Cardiomyopathy Hyperlipidemia History of DVT Past Surgical History Tonsillectomy Reported Medications Reported Meds & Active Scripts Active Coumadin (Warfarin) 2.5 Mg Tab 2.5 Mg PO DAILY@1600 Coumadin (Warfarin) 10 Mg Tab 10 Mg PO DAILY@1600 Hydroskin (Hydrocortisone (Topical)) 1 % Lot 1 Applic TOPICAL Q8HR Ventolin Hfa 18 GM Inh (Albuterol Sulfate) 90 Mcg/Act Aer 2 Puff INH Q4H PRN Symbicort Inh (Budesonide/Formoterol Fumarate) 160-4.5 Mcg/Act Aero 1 Puff INH Q12HR Active Ordered Medications Current Medications Medications (Trade) Dose Ordered Sig/Ramos Route Start Time Stop Time Status Last Admin (risperDAL) 1 mg Q12HR PO 05/15/17 21:00 (Haldol Inj) 5 mg Q6H PRN IM 05/15/17 15:00 (Ativan) 1 mg Q6H PRN PO 05/15/17 15:15 (Ativan Inj) 1 mg Q6H PRN IM 05/15/17 15:15 (Tylenol) 650 mg Q4H PRN PO 05/15/17 15:15 (Milk Of Magnesia Liq) 30 ml DAILY PRN PO 05/15/17 15:15 (Mag-Al Plus Susp Liq) 30 ml Q6H PRN PO 05/15/17 15:15 (Habitrol 21 Mg Patch.24 Hr) 1 patch DAILY T-DERMAL 05/16/17 09:00 Miscellaneous Information 1 HS T-DERMAL 05/15/17 21:00 Family History Maternal medical history significant for ME and CHF. Paternal medical history significant for smoking history. 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 Denies any current tobacco use, admits to occasional alcohol use and denies illicit drug use. Physical Exam Physical Exam GENERAL: This is a well-nourished, well-developed patient, lying in bed in no apparent distress. SKIN: No ecchymoses. Warm and dry. Left lower extremity 2+ edema noted, with diffuse erythema, no open areas, no drainage noted. DP and pedal pulses present , 2+. HEENT: Atraumatic. Normocephalic. Pupils equal round and reactive. Extraocular motions intact. No scleral icterus. No injection or drainage. Nose without bleeding. Airway patent. NECK: Trachea midline. No JVD. Supple. CARDIOVASCULAR: Regular rate and rhythm without murmurs, gallops, or rubs. S1 and S2 present. RESPIRATORY: Clear to auscultation. Breath sounds equal bilaterally. No wheezes , rales, or rhonchi. GASTROINTESTINAL: Abdomen soft, non-tender, nondistended. No guarding. MUSCULOSKELETAL: Extremities without clubbing, cyanosis, or edema. No joint tenderness, effusion, or edema noted. NEUROLOGICAL: Awake and alert, oriented x 3. Cranial nerves II through XII intact. Motor and sensory grossly within normal limits. Five out of 5 muscle strength in all muscle groups. Normal speech. PSYCH: Paranoid. Flight of ideas. Assessment and Plan Assessment and Plan Mr. Little is a 61-year-old male patient with a known medical history of asthma, history of DVT and lower extremity cellulitis who presented to the ED with complains of continued left lower extremity erythema and swelling as well as bilateral upper extremity urticaria. Patient has a recent hospitalization on April 26, 2017 with new onset DVT, left lower extremity cellulitis and sepsis. At that time patient was positive for Group A strep, staph aureus and treated with Vancomycin for 7 days. Since that time patient states he went home and noticed improvement for some time but for the past several days his left lower extremity has become more warm, swollen and erythremic. At time of presentation to hospital today patient's CBC: WBC 13.5 with left shift. (7.6 on discharge.) CMP: BUN 17, creatinine 1.01. Bilirubin 1.8. Calcium 8.2. Coags: INR 3.2. ESR : 46. CRP 63. Lower extremity ultrasound: Negative for DVT. Patient has been discharged from observation unit to medical psych unit. Please see previous visit notes, labs and medications. Will continue plan of care and all ordered medications. Delusional disorder: Management per primary team. Previously seen by Dr. Monahan last admission. Note reviewed. Appreciate further input. Left lower extremity cellulitis - Lower extremity ultrasound reviewed showing no DVT of the left lower extremity. - Wound culture from previous admission on 04/26/17 positive for group A beta strep and staph aureus. - WBC 13.5 on presentation --> 8.6. Afebrile. Lower extremity with no open sores or drainage. - Blood cultures last admission were negative. Blood cultures obtained and pending. Follow. - Vancomycin IV x 1 given in ED. Now on Vancomycin 1.5 g IV q24hr. Bilateral forearm urticaria and rash possibly secondary to eczema - Will order Eucerin cream. Continue to assess. History of DVT on Coumadin with mildly supratherapeutic INR - INR 3.2 on presentation --> 3.0 now. Pharmacy consulted to dose, appreciate input. Follow daily. History of asthma: Continue home regimen. DVT prophylaxis: Coumadin Thank you for this consultation, will follow with you. Skyla Hansen May 15, 2017 15:29
[2017-05-15 18:31] VITALS: BP 147/75; PULSE 61; RESP 20; TEMP 98.4; O2SAT 100
[2017-05-15] MEDS: REMOVE OLD NICOTINE PATCH T-DERMAL SCH (21:00)
[2017-05-15] MEDS: risperiDONE 1 MG TAB PO SCH (21:00)
[2017-05-15] MEDS ORDERED: RESP: ALBUTEROL 2.5 MG/IPRATROPIUM 0.5 MG NEB (PRN) NEB (21:45)
[2017-05-15] MEDS ORDERED: RESP: ALBUTEROL 2.5 MG/IPRATROPIUM 0.5 MG NEB (SCH) NEB (22:00)
[2017-05-15] MEDS ORDERED: RESP: ALBUTEROL 1.25 MG/3 ML NEB (PRN) NEB (22:45)
[2017-05-16] MEDS: RESP: ALBUTEROL 0.63 MG/3 ML NEB (SCH) NEB ×3 (04:25→15:14)
[2017-05-16 05:38] VITALS: BP 100/55; PULSE 54; RESP 15; TEMP 97.4; O2SAT 98
[2017-05-16] MEDS: NICOTINE 21 MG/24 HR PATCH T-DERMAL SCH (07:25)
[2017-05-16] MEDS: risperiDONE 1 MG TAB PO SCH ×2 (07:56→21:15)
[2017-05-16 09:50] LABS: ANION GAP 6 MEQ/L (5-15); BICARBONATE 26.2 MEQ/L (21.0-32.0); BLOOD UREA NITROGEN 13 MG/DL (7-18); CHLORIDE 108 MEQ/L (98-107); GLOMERULAR FILTRATION RATE 114 ML/MIN (>89); HDL CHOLESTEROL 45.9 MG/DL (40.0-60.0); LDL CHOLESTEROL 90 MG/DL (0-99); POTASSIUM 3.9 MEQ/L (3.5-5.1); SODIUM (NA) 140 MEQ/L (136-145)
[2017-05-16] MEDS ORDERED: EUCERIN CREAM 120 GM JAR TOPICAL PRN (12:00)
[2017-05-16] MEDS ORDERED: ALBUTEROL SULFATE 90 MCG/ACT HFA 8 GM INHALER INH PRN (12:00)
[2017-05-16] MEDS ORDERED: Vancomycin Consult Pharmacy 1 EA OTHER SCH (12:00)
[2017-05-16] MEDS: MICONAZOLE NITRATE 2% CREAM 15 GM TOPICAL SCH ×2 (12:00→21:00)
[2017-05-16] MEDS: BUDESONIDE-FORMOTEROL 160/4.5 MCG INHALER INH SCH ×3 (12:00→21:56)
--- NOTE | 2017-05-16 12:03 | PD.CONS ---
[facility] By Primary Care Physician Job Cunningham D.O. Diagnoses: (1) Unspecified psychosis (2) Lower extremity cellulitis (3) Asthma (4) Paranoia History of Present Illness Written by Skyla Hansen, acting as scribe for Dr. Tijerina on 05/16/17 11:59 Mr. Little is a 61-year-old male patient with a known medical history of asthma, history of DVT and lower extremity cellulitis who presented to the ED with complains of continued left lower extremity erythema and swelling as well as bilateral upper extremity urticaria. Patient has a recent hospitalization on April 26, 2017 with new onset DVT, left lower extremity cellulitis and sepsis. At that time patient was positive for Group A strep, staph aureus and treated with Vancomycin for 7 days. Since that time patient states he went home and noticed improvement for some time but for the past several days his left lower extremity has become more warm, swollen and erythremic. He denies any antibiotic use since hospitalization. Denies any recent illness including fever , chills, cough, shortness of breath, abdominal pain, nausea, vomiting, diarrhea or dysuria. At the time of last hospitalization he was voicing statements of paranoia involving his ex- "having a copy operator in her pocket" and "people trying to mess with him putting construction dust in the ac ducts and making his bilateral upper arms itch". These statements have continued and denies having any problem with paranoia or needing help from psychiatry. At this time denies any suicidal ideation or plan. Does have a history of Asthma and has been well-controlled per patient. Review of Systems Constitutional: COMPLAINS OF: Chills, DENIES: Fever Respiratory: DENIES: Cough, Shortness of breath Cardiovascular: DENIES: Chest pain, Syncope Gastrointestinal: DENIES: Diarrhea, Nausea, Vomiting Psychiatric: COMPLAINS OF: Delusions Except as stated in HPI: all other systems reviewed are Neg Past Family Social History Allergies: Coded Allergies: clindamycin (Unverified Allergy, Severe, Fatigue, 05/14/17) ipratropium (Unverified Allergy, Severe, CHEST PAIN, 05/14/17) propoxyphene (Unverified Allergy, Severe, NAUSEA, 05/14/17) ampicillin (Unverified Adverse Reaction, Severe, STATES MADE ABDOMEN UPTIGHT, 05/14/17) sulbactam (Unverified Adverse Reaction, Severe, STATES MADE ABDOMEN UPTIGHT, 05/14/17) levofloxacin (Unverified Adverse Reaction, Intermediate, Nausea/Vomiting, 05/14/17) penicillin G (Unverified Adverse Reaction, Intermediate, NAUSEA, 05/14/17) sulfamethoxazole (Unverified Adverse Reaction, Intermediate, 05/14/17) ABD PAIN trimethoprim (Unverified Adverse Reaction, Intermediate, 05/14/17) ABD PAIN Past Medical History Asthma Cardiomyopathy Hyperlipidemia History of DVT Past Surgical History Tonsillectomy Reported Medications Active Coumadin (Warfarin) 2.5 Mg Tab 2.5 Mg PO DAILY@1600 Coumadin (Warfarin) 10 Mg Tab 10 Mg PO DAILY@1600 Hydroskin (Hydrocortisone (Topical)) 1 % Lot 1 Applic TOPICAL Q8HR Ventolin Hfa 18 GM Inh (Albuterol Sulfate) 90 Mcg/Act Aer 2 Puff INH Q4H PRN Symbicort Inh (Budesonide/Formoterol Fumarate) 160-4.5 Mcg/Act Aero 1 Puff INH Q12HR Active Ordered Medications Current Medications Medications (Trade) Dose Ordered Sig/Ramos Route Start Time Stop Time Status Last Admin (risperDAL) 1 mg Q12HR PO 05/15/17 21:00 05/16/17 07:56 (Haldol Inj) 5 mg Q6H PRN IM 05/15/17 15:00 (Ativan) 1 mg Q6H PRN PO 05/15/17 15:15 (Ativan Inj) 1 mg Q6H PRN IM 05/15/17 15:15 (Tylenol) 650 mg Q4H PRN PO 05/15/17 15:15 (Milk Of Magnesia Liq) 30 ml DAILY PRN PO 05/15/17 15:15 (Mag-Al Plus Susp Liq) 30 ml Q6H PRN PO 05/15/17 15:15 (Habitrol 21 Mg Patch.24 Hr) 1 patch DAILY T-DERMAL 05/16/17 09:00 Miscellaneous Information 1 HS T-DERMAL 05/15/17 21:00 (Albuterol Neb) 0.63 mg Q6HR NEB NEB 05/16/17 04:00 (Albuterol Neb) 1.25 mg Q2HR NEB PRN NEB 05/15/17 22:45 Family History Maternal medical history significant for [place] and CHF. Paternal medical history significant for smoking history. 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 Denies any current tobacco use, admits to occasional alcohol use and denies illicit drug use. Physical Exam Vital Signs Vital Signs Date Time Temp Pulse Resp B/P (MAP) Pulse Ox O2 Delivery O2 Flow Rate FiO2 05/16/17 05:38 97.4 54 15 100/55 (70) 98 05/15/17 18:31 98.4 61 20 147/75 (99) 100 05/15/17 14:00 98.0 62 12 163/111 (128) 100 Physical Exam GENERAL: This is a well-nourished, well-developed patient, lying in bed in no apparent distress. SKIN: No ecchymoses. Warm and dry. Left lower extremity 2+ edema noted, with diffuse erythema, no open areas, no drainage noted. DP and pedal pulses present , 2+. Bilateral upper extremity dry, scaly and erythremic. HEENT: Atraumatic. Normocephalic. Pupils equal round and reactive. Extraocular motions intact. No scleral icterus. No injection or drainage. Nose without bleeding. Airway patent. NECK: Trachea midline. No JVD. Supple. CARDIOVASCULAR: Regular rate and rhythm without murmurs, gallops, or rubs. S1 and S2 present. RESPIRATORY: Clear to auscultation. Breath sounds equal bilaterally. No wheezes , rales, or rhonchi. GASTROINTESTINAL: Abdomen soft, non-tender, nondistended. No guarding. MUSCULOSKELETAL: Extremities without clubbing, cyanosis, or edema. No joint tenderness, effusion, or edema noted. NEUROLOGICAL: Awake and alert, oriented x 3. Cranial nerves II through XII intact. Motor and sensory grossly within normal limits. Five out of 5 muscle strength in all muscle groups. Normal speech. PSYCH: Paranoid. Flight of ideas. Laboratory Laboratory Tests Test 05/16/17 08:29 Blood Urea Nitrogen 13 Creatinine 0.70 Random Glucose 115 Calcium Level 8.9 Sodium Level 140 Potassium Level 3.9 Chloride Level 108 Carbon Dioxide Level 26.2 Anion Gap 6 Estimat Glomerular Filtration Rate 114 Triglycerides Level 77 Cholesterol Level 151 LDL Cholesterol 90 HDL Cholesterol 45.9 Cholesterol/HDL Ratio 3.28 Result Diagram: 05/16/17 0829 Assessment and Plan Problem List: (1) Unspecified psychosis ICD Code: F29 - Unspecified psychosis not due to a substance or known physiological condition (2) Lower extremity cellulitis ICD Code: L03.119 - Cellulitis of unspecified part of limb (3) Asthma ICD Code: J45.909 - Unspecified asthma, uncomplicated Status: Chronic (4) Paranoia ICD Code: F22 - Delusional disorders Status: Acute Assessment and Plan Mr. Little is a 61-year-old male patient with a known medical history of asthma, history of DVT and lower extremity cellulitis who presented to the ED with complains of continued left lower extremity erythema and swelling as well as bilateral upper extremity urticaria. Patient has a recent hospitalization on April 26, 2017 with new onset DVT, left lower extremity cellulitis and sepsis. At that time patient was positive for Group A strep, staph aureus and treated with Vancomycin for 7 days. Since that time patient states he went home and noticed improvement for some time but for the past several days his left lower extremity has become more warm, swollen and erythremic. At time of presentation to hospital today patient's CBC: WBC 13.5 with left shift. (7.6 on discharge.) CMP: BUN 17, creatinine 1.01. Bilirubin 1.8. Calcium 8.2. Coags: INR 3.2. ESR : 46. CRP 63. Lower extremity ultrasound: Negative for DVT. Patient has been discharged from observation unit to medical psych unit. Please see previous visit notes, labs and medications. Will continue plan of care and all ordered medications. Delusional disorder: Management per primary team. Previously seen by Dr. Monahan last admission. Note reviewed. Appreciate further input. Left lower extremity cellulitis - Lower extremity ultrasound reviewed showing no DVT of the left lower extremity. - Wound culture from previous admission on 04/26/17 positive for group A beta strep and staph aureus. - WBC 13.5 on presentation --> 8.6. Afebrile. Lower extremity with no open sores or drainage. Erythremic. - Blood cultures last admission were negative. Blood cultures reviewed and NGTD. Follow. - Vancomycin IV x 1 given in ED. Now on Vancomycin 1.5 g IV q24hr. Consulted pharmacy to dose. Bilateral forearm urticaria and rash possibly secondary to eczema - Will order Eucerin cream. Continue to assess. History of DVT on Coumadin with mildly supratherapeutic INR - INR 3.2 on presentation --> 3.0 now. Pharmacy consulted to dose, appreciate input. Follow daily. INR ordered and pending. History of asthma: Continue home regimen. DVT prophylaxis: Checking INR and pending. Will resume Coumadin if INR therapeutic. Thank you for this consultation, will follow with you. Skyla Hansen May 16, 2017 12:03 Chloe Tijerina MD May 16, 2017 12:14
[2017-05-16] MEDS: VANCOMYCIN INJ 1,500 MG in SODIUM CHLORID 0.9% 500 ML INJ 500 ML IV SCH (13:42)
[2017-05-16 14:05] LABS: HEMOGLOBIN A1a 0.9 %; HEMOGLOBIN A1b 1.5 %; HEMOGLOBIN Ao 86.3 %; HEMOGLOBIN P3 3.4 %
--- NOTE | 2017-05-16 14:30 | HHI.HP ---
Provisional Diagnosis Admission Date May 15, 2017 at 14:16 [place] I. Unspecified psychosis, Delusional disorder, paranoid type [place] II. Deferred Certification of Person's Competence To Provide Express and Informed Consent I have personally examined Cameron Little , a person being served at [facility] on, May 16, 2017 14:20. Express and informed consent means consent voluntarily given in writing, by a competent person, after sufficient explanation and disclosure of the subject matter involved to enable the person to make a knowing and willful decision without any element of force, fraud, deceit, duress, or other form of constraint or coercion. This person is 18 years of age or older, is not now known to be incompetent to consent to treatment with a guardian advocate, and does not have a health care surrogate or proxy currently making medical treatment decisions. I have found this person to be one of the following: [] Competent to provide express and informed consent, as defined above, for voluntary admission to this facility and is competent to provide express and informed consent for treatment. He/she has the consistent capacity to make well reasoned, willful, and knowing decisions concerning his or her medical or mental health treatment. The person fully and consistently understands the purpose of the admission for examination/placement and is fully capable of personally exercising all rights assured under [place] [] Incompetent to provide express and informed consent to voluntary admission, and this is incompetent to provide express and informed consent to treatment. The person must be transferred to involuntary status and a petition for a guardian advocate filed with the Circuit Court. [X] Refusing to provide express and informed consent to voluntary admission but is competent to provide express and informed consent for treatment. The person must be discharged or transferred to involuntary status. Form shall be completed within 24 hours of a person's arrival at the receiving facility and filed in the clinical record of each person: 1. Admitted on a voluntary basis 2. Permitted to provide express and informed consent to his/her own treatment 3. Allowed to transfer from involuntary to voluntary status 4. Prior to permitting a person to consent to his or her own treatment after having been previously found incompetent to consent to treatment. 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 Monahan in the medical floor due to delusional thinking, as per Dr. Monahan on 04/28/2017 61- year-old male with fairly obvious delusional disorder of being poisoned in some fashion by some unknown item or items in his environment. Currently being seen and treated for cellulitis and DVT. Patient is apparently cooperative with his treatment, according to nurse. Patient does not wish to be treated psychiatrically. He denies any suicidal or homicidal ideation, plan or intent. He is not felt to be Domingo act bullet this time as he is willing to accept treatment and not in danger of imminent or irreversible arm with a known medical history of asthma, lower back pain, history of DVT and lower extremity cellulitis who presented to the ED with complains of continued left lower extremity erythema and swelling as well as bilateral upper extremity urticaria. Patient has a recent hospitalization on April 26, 2017 with new onset DVT, left lower extremity cellulitis and sepsis. At that time patient was positive for Group A strep, staph aureus and treated with Vancomycin for 7 days. Since that time patient states he went home and noticed improvement for some time but for the past several days his left lower extremity has become more warm, swollen and erythremic. He denies any antibiotic use since hospitalization. Denies any recent illness including fever, chills, cough, shortness of breath, abdominal pain, nausea, vomiting, diarrhea or dysuria. At the time of last hospitalization he was voicing statements of paranoia involving his ex- "having a copy and print associate in her pocket" and "people trying to mess with him putting construction dust in the ac ducts and making his bilateral upper arms itch". Patient was consulted to psychiatry to explore potential underlying major psychotic disorder and the need of hospitalization. On psychiatric evaluation today patient is found calm and cooperative. At the beginning, once I presented as a psychiatrist, patient became irritable stating that he is not here to see a psychiatrist and all his complains are real. Patient says that even though is difficult to believe "I can demonstrate, ex- is using a copy and print associate to come to me and introduce construction material he my legs and in my head, and that is the reason I am continuously having this cellulitis". He also says that most probably he has son "odd material he might blood". 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 Patient continuously says that his cellulitis is due to the fact that has started his material is introduced by a copy and print associate under his skin. Patient also uses very often at term "they"to refer to people that are following him and could be watching him in his house. But, he does not elaborate about the identity of these people. Patient seems to be suspicious, paranoid, with many statements with a delusional flavor. He denies depressive symptoms, he denies anxiety, he denies suicidal and homicidal ideation, he denies visual and auditory hallucinations. Denies the use of drugs and alcohol. Patient is fully oriented 3, no cognitive impairment, no attention deficit, no fluctuation of consciousness. 05/16/2017 patient seen today for psychiatric evaluation along with nurse in charge AMANDA Rogers. Patient at the beginning upset, requesting to be discharged. He says that he doesn't need to be here that he is not a psychiatric patient. He says that he has prove that his has been using her [id number] who is a copy and print associate in order to put dust in her bed "and his dust is the responsible for my cellulitis". Patient says that all his family are plotting against him in order to get the money from his father. Patient says that many police in [place] are aware of this situation. Today he clarifies that he has been already admitted in psychiatry in the [facility] "for telling the truth to the doctors, but the doctors don't believe me". 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 Patient says that he has a CD in his pertinence "that is the best prove what I'm telling". She refuses to give information about his family for collateral information. Patient has been taking his medications, "because I want to do the right thing to leave the hospital". No aggressive behavior or agitation has been reported. Patient is oriented 3. Review of Systems Constitutional: DENIES: Diaphoretic episodes, Fatigue, Fever, Weight gain, Weight loss, Chills, Dizziness, Change in appetite, Night Sweats Endocrine: DENIES: Heat/cold intolerance, Polydipsia, Polyuria, Polyphagia Ears, nose, mouth, throat: DENIES: Tinnitus, Hearing loss, Vertigo, Nasal discharge, Oral lesions, Throat pain, Hoarseness, Ear Pain, Running Nose, Epistaxis, Sinus Pain, Toothache, Odynophagia Respiratory: DENIES: Apneas, Cough, Snoring, Wheezing, Hemoptysis, Sputum production, Shortness of breath Cardiovascular: DENIES: Chest pain, Palpitations, Syncope, Dyspnea on Exertion , PND, Lower Extremity Edema, Orthopnea, Claudication Gastrointestinal: DENIES: Abdominal pain, Black stools, Bloody stools, Constipation, Diarrhea, Nausea, Vomiting, Difficulty Swallowing, Anorexia Musculoskeletal: DENIES: Joint pain, Muscle aches, Stiffness, Joint Swelling, Back pain, Neck pain Integumentary: DENIES: Abnormal pigmentation, Nail changes, Pruritus, Rash Hematologic/lymphatic: DENIES: Bruising, Lymphadenopathy Immunologic/allergic: DENIES: Eczema, Urticaria Neurologic: DENIES: Abnormal gait, Headache, Localized weakness, Paresthesias, Seizures, Speech Problems, Tremor, Poor Balance Psychiatric: COMPLAINS OF: Delusions, DENIES: Anxiety, Confusion, Mood changes , Depression, Hallucinations, Agitation, Suicidal Ideation, Homicidal Ideation Past Family Social History Coded Allergies: clindamycin (Unverified Allergy, Severe, Fatigue, 05/14/17) ipratropium (Unverified Allergy, Severe, CHEST PAIN, 05/14/17) propoxyphene (Unverified Allergy, Severe, NAUSEA, 05/14/17) ampicillin (Unverified Adverse Reaction, Severe, STATES MADE ABDOMEN UPTIGHT, 05/14/17) sulbactam (Unverified Adverse Reaction, Severe, STATES MADE ABDOMEN UPTIGHT, 05/14/17) levofloxacin (Unverified Adverse Reaction, Intermediate, Nausea/Vomiting, 05/14/17) penicillin G (Unverified Adverse Reaction, Intermediate, NAUSEA, 05/14/17) sulfamethoxazole (Unverified Adverse Reaction, Intermediate, 05/14/17) ABD PAIN trimethoprim (Unverified Adverse Reaction, Intermediate, 05/14/17) ABD PAIN Active Scripts Warfarin (Coumadin) 2.5 Mg Tab, 2.5 MG PO DAILY@1600, #30 TAB Prov:Stas eDla Cruz MD 05/06/17 Warfarin (Coumadin) 10 Mg Tab, 10 MG PO DAILY@1600, #30 TAB Prov:Stas Dela Cruz MD 05/06/17 Hydrocortisone (Topical) (Hydroskin) 1 % Lot, 1 APPLIC TOPICAL Q8HR, #1 TUBE Prov:Stas Dela Cruz MD 05/06/17 Albuterol 18 GM Inh (Ventolin Hfa 18 GM Inh) 90 Mcg/Act Aer, 2 PUFF INH Q4H Y for SOB/WHEEZING, #1 INHALER Prov:Stas Dela Cruz MD 05/06/17 Budesonide-Formoterol Inh (Symbicort Inh) 160-4.5 Mcg/Act Aero, 1 PUFF INH Q12HR , #1 INHALER 1 Refill Prov:Stas Dela Cruz MD 05/06/17 Discontinued Scripts Albuterol 18 GM Inh (Ventolin Hfa 18 GM Inh) 90 Mcg/Act Aer, 2 PUFF INH Q4-6H Y for SHORTNESS OF BREATH, #1 INHALER 1 Refill Prov:Yvonne Ho MD 05/09/17 Albuterol Neb (Albuterol Neb) 2.5 Mg/3 Ml Neb, 2.5 MG NEB Q6HR NEB Y for SHORTNESS OF BREATH, #60 NEBULE Prov:Stas Dela Cruz MD 05/06/17 [Eucerin Cream] 120 APPLIC/120 GM CR No Conflict Check, 1 APPLIC TOPICAL Q6H Prov:Stas Dela Cruz MD 05/06/17 Current Medications Medications (Trade) Dose Ordered Sig/Armos Route Start Time Stop Time Status Last Admin (Haldol Inj) 5 mg Q6H PRN IM 05/15/17 15:00 (Ativan) 1 mg Q6H PRN PO 05/15/17 15:15 (Ativan Inj) 1 mg Q6H PRN IM 05/15/17 15:15 (Tylenol) 650 mg Q4H PRN PO 05/15/17 15:15 (Milk Of Magnesia Liq) 30 ml DAILY PRN PO 05/15/17 15:15 (Mag-Al Plus Susp Liq) 30 ml Q6H PRN PO 05/15/17 15:15 (Habitrol 21 Mg Patch.24 Hr) 1 patch DAILY T-DERMAL 05/16/17 09:00 Miscellaneous Information 1 HS T-DERMAL 05/15/17 21:00 (Albuterol Neb) 0.63 mg Q6HR NEB NEB 05/16/17 04:00 (Albuterol Neb) 1.25 mg Q2HR NEB PRN NEB 05/15/17 22:45 Vancomycin HCl 1500 mg/Sodium Chloride 515 ml @ 257.5 mls/ hr Q24H IV 05/16/17 14:00 05/16/17 13:42 Pharmacy Profile Note 0 ml @ 0 mls/hr UNSCH OTHER 05/16/17 12:00 (Micatin 2% Cream) 1 applic Q12HR TOPICAL 05/16/17 12:00 05/16/17 12:00 (Eucerin Cream) 1 applic Q6H PRN TOPICAL 05/16/17 12:00 (Proair Hfa Inh) 2 puff Q4H PRN INH 05/16/17 12:00 (Symbicort 160-4.5 Inh) 1 puff Q12HR INH 05/16/17 12:00 05/16/17 12:00 (risperDAL) 2 mg Q12HR PO 05/16/17 21:00 UNV Social History Patient was born and raised in [place], he lives in [place], 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, Physical Exam Vital Signs Vital Signs Date Time Temp Pulse Resp B/P (MAP) Pulse Ox O2 Delivery O2 Flow Rate FiO2 05/16/17 05:38 97.4 54 15 100/55 (70) 98 I/O 05/16/17 05/16/17 05/17/17 08:00 16:00 00:00 Intake Total 300 ml Balance 300 ml Lab Results Test 05/16/17 08:29 Blood Urea Nitrogen 13 MG/DL Creatinine 0.70 MG/DL Random Glucose 115 MG/DL Calcium Level 8.9 MG/DL Sodium Level 140 MEQ/L Potassium Level 3.9 MEQ/L Chloride Level 108 MEQ/L Carbon Dioxide Level 26.2 MEQ/L Anion Gap 6 MEQ/L Estimat Glomerular Filtration Rate 114 ML/MIN Triglycerides Level 77 MG/DL Cholesterol Level 151 MG/DL LDL Cholesterol 90 MG/DL HDL Cholesterol 45.9 MG/DL Cholesterol/HDL Ratio 3.28 RATIO Mental Status Examination Appearance man, age appearing, hospital [facility], superficially cooperative, oppositional and irritable Speech: Unremarkable Orientation: x3 Memory: Unremarkable Thought Process: Circumstantial, Loose Association Thought Content: Derealization Hallucination Type: None Attention and Concentration: Good Suicidal Ideation: No Previous Suicide Attempts: No Homicidal Ideation: No Previous Homicide Attempts: No Judgment: Poor Affect: Irritable Mood: Angry Motor Activity: Normal gait Assessment & Plan Problem List: (1) Unspecified psychosis ICD Codes: F29 - Unspecified psychosis not due to a substance or known physiological condition Assessment & Plan: On psychiatric evaluation the patient presents with fixed, continuous, with structure/complex delusional ideation of being followed by copy and print associate' s, rv servicer introducing hazardous material under his escaping and producing cellulitis, paranoia, and was seems to be grounded or delusions of 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 Patient was seen by Dr. Monahan about 2 weeks ago with a very similar presentation. Since he was seen by Dr. Monahan the patient has been in they are with medical complaints in multiple medications. Even though the patient denies suicidal and homicidal ideation, visual and auditory hallucinations, he is oriented 3, without any gross cognitive impairment, logical and coherent in many aspects of his conversation, my fear is that there are delusional material in his thought content that might be actually interfering with his level of function and self care. For example, I suspect that the patient might be self inflicting skin lacerations in order to get out "material introduced by rv servicer" and this may be the reason of his cellulitis. I'm going to Domingo act and recommended admission due to increase level of delusions last paranoia that might be a danger to himself and even for others. Extensive support, motivation and psychoeducation has been provided. Increase Risperdal to 2 mg twice a day for psychosis. We'll consider psychiatric for second opinion, will consult hospitalist to continue medical care. lunchroom worker intervention for collateral information, safe discharge, individual and group psychotherapy. Assessment & Plan Estimated LOS: Pepito Pinzon MD May 16, 2017 14:30
[2017-05-16] MEDS ORDERED: RESP: ALBUTEROL 2.5 MG/3 ML NEB (PRN) NEB (17:00)
[2017-05-16 17:39] VITALS: BP 122/67; PULSE 55; RESP 18; TEMP 97.8; O2SAT 99
[2017-05-16 18:28] LABS: INTERNATIONAL NORMALIZED RATIO 1.4 RATIO; PROTHROMBIN TIME - PATIENT 15.5 SEC (9.8-11.6)
[2017-05-16] MEDS: REMOVE OLD NICOTINE PATCH T-DERMAL SCH (21:00)
[2017-05-17 06:09] VITALS: BP 143/92; PULSE 67; RESP 17; TEMP 97.3; O2SAT 99
--- NOTE | 2017-05-17 08:40 | HHI.PR ---
Subjective Remarks is comfortable with no distress. denies pain. no fever. d/w the RN and no acute issues over night. Objective Vitals Vital Signs Date Time Temp Pulse Resp B/P (MAP) Pulse Ox O2 Delivery O2 Flow Rate FiO2 05/17/17 06:09 97.3 67 17 143/92 (109) 99 05/16/17 17:39 97.8 55 18 122/67 (85) 99 I/O 05/16/17 05/16/17 05/16/17 05/17/17 05/17/17 05/17/17 07:00 15:00 23:00 07:00 15:00 23:00 Intake Total 300 ml 480 ml Balance 300 ml 480 ml Intake Oral 300 ml 480 ml # Voids 1 1 3 Result Diagram: 05/16/17 0829 Objective Remarks GENERAL: This is a well-nourished, well-developed patient, in no apparent distress. CARDIOVASCULAR: Regular rate and regular rhythm without murmurs, gallops, or rubs. RESPIRATORY: Clear to auscultation. Breath sounds equal bilaterally. No wheezes , rales, or rhonchi. GASTROINTESTINAL: Abdomen soft, non-tender, nondistended. Normal, active bowel sounds MUSCULOSKELETAL: Extremities without clubbing, cyanosis, or edema. NEURO: Alert & Oriented x4 to person, place, time, situation. Moves all ext x4 skin; mild erythema over the left leg Medications and IVs Current Medications Risperidone (risperDAL) 1 mg Q12HR PO Last administered on 05/16/17t 07:56; Start 05/15/17 at 21:00; Stop 05/16/17 at 14:19; Status DC Haloperidol Lactate (Haldol Inj) 5 mg Q6H PRN IM aggresiveness, agitation ; Start 05/15/17 at 15:00 Lorazepam (Ativan) 1 mg Q6H PRN PO MODERATE TO SEVERE ANXIETY; Start 05/15/17 at 15:15 Lorazepam (Ativan Inj) 1 mg Q6H PRN IM MODERATE TO SEVERE ANXIETY; Start at 15:15 Acetaminophen (Tylenol) 650 mg Q4H PRN PO Pain 1-5 or Temp >101F; Start at 15:15 Magnesium Hydroxide (Milk Of Magnesia Liq) 30 ml DAILY PRN PO CONSTIPATION; Start 05/15/17 at 15:15 Al Hydrox/Mg Hydrox/Simethicone (Mag-Al Plus Susp Liq) 30 ml Q6H PRN PO DYSPEPSIA; Start 05/15/17 at 15:15 Nicotine (Habitrol 21 Mg Patch.24 Hr) 1 patch DAILY T-DERMAL ; Start 05/16/17 at 09:00 Miscellaneous Information 1 HS T-DERMAL ; Start 05/15/17 at 21:00 Albuterol/ Ipratropium (Duoneb Neb) 1 ampule Q6HR NEB NEB ; Start 05/15/17 at 22:00; Stop 05/15/17 at 22:38; Status DC Albuterol/ Ipratropium (Duoneb Neb) 1 ampule Q2HR NEB PRN NEB wheezing; Start 05/15/17 at 21:45; Stop 05/15/17 at 22:38; Status DC Albuterol Sulfate (Albuterol Neb) 0.63 mg Q6HR NEB NEB ; Start 05/16/17 at 04: 00; Stop 05/16/17 at 15:25; Status DC Albuterol Sulfate (Albuterol Neb) 1.25 mg Q2HR NEB PRN NEB wheezing; Start at 22:45; Stop 05/16/17 at 15:25; Status DC Vancomycin HCl 1500 mg/Sodium Chloride 515 ml @ 257.5 mls/ hr Q24H IV Last administered on 05/16/17 13:42; Start 05/16/17 at 14:00 Pharmacy Profile Note 0 ml @ 0 mls/hr UNSCH OTHER ; Start 05/16/17 at 12:00 Miconazole Nitrate (Micatin 2% Cream) 1 applic Q12HR TOPICAL Last administered on 05/16/17 12:00; Start 05/16/17 at 12:00 Multi-Ingredient Ointment (Eucerin Cream) 1 applic Q6H PRN TOPICAL urticaria; Start 05/16/17 at 12:00 Albuterol Sulfate (Proair Hfa Inh) 2 puff Q4H PRN INH SOB/WHEEZING; Start 05/16 at 12:00 Budesonide/ Formoterol Fumarate (Symbicort 160-4.5 Inh) 1 puff Q12HR INH Last administered on 05/16/17 21:22; Start 05/16/17 at 12:00 Risperidone (risperDAL) 2 mg Q12HR PO Last administered on 05/16/17t 21:15; Start 05/16/17 at 21:00 Miscellaneous Information SPECIFIC LAB TO BE ... ONCE ONCE .XX ; Start 05/18 at 13:45; Stop 05/18/17 at 13:46 Albuterol Sulfate (Albuterol Neb) 2.5 mg Q6HR NEB PRN NEB wheezing; Start 05/16 at 17:00 A/P Assessment and Plan A/P Delusional disorder: Management per primary team. Left lower extremity cellulitis - Lower extremity ultrasound reviewed showing no DVT of the left lower extremity. - Wound culture from previous admission on 04/26/17 positive for group A beta strep and staph aureus. - WBC 13.5 on presentation --> 8.6. Afebrile. Lower extremity with no open sores or drainage. . - Blood cultures last admission were negative. - Vancomycin IV x 1 given in ED. Now on Vancomycin 1.5 g IV q24hr. Consulted pharmacy to dose. -will stop IV antibiotic soon if no fever. Bilateral forearm urticaria and rash possibly secondary to eczema - Eucerin cream. Continue to assess. History of DVT on Coumadin with mildly supratherapeutic INR - Pharmacy consulted to dose, appreciate input. Follow daily.INR today. History of asthma: Continue home regimen. DVT prophylaxis: Checking INR and pending. Will resume Coumadin if INR therapeutic. Debi Eli MD May 17, 2017 08:40
[2017-05-17] MEDS: NICOTINE 21 MG/24 HR PATCH T-DERMAL SCH (09:00)
[2017-05-17] MEDS: MICONAZOLE NITRATE 2% CREAM 15 GM TOPICAL SCH ×2 (09:00→21:56)
[2017-05-17] MEDS: BUDESONIDE-FORMOTEROL 160/4.5 MCG INHALER INH SCH (09:41)
[2017-05-17] MEDS: risperiDONE 1 MG TAB PO SCH ×2 (09:43→21:56)
[2017-05-17 12:10] LABS: AUTOMATED NEUTROPHIL # 5.3 TH/MM3 (1.8-7.7); BASOPHIL # 0.1 TH/MM3 (0-0.2); BASOPHIL % 0.8 % (0.0-2.0); EOSINOPHIL # 0.5 TH/MM3 (0-0.4); EOSINOPHIL % 6.4 % (0.0-4.0); HEMATOCRIT 37.6 % (39.0-51.0); HEMO FLAGS DIFF FINAL; LYMPH % 14.8 % (9.0-44.0); LYMPHOCYTE # 1.1 TH/MM3 (1.0-4.8); MEAN CELL VOLUME 90.7 FL (80.0-100.0); MEAN CORPUSCULAR HEMOGLOBIN 30.1 PG (27.0-34.0); MEAN CORPUSCULAR HGB CONC 33.1 % (32.0-36.0); MONO % 6.3 % (0.0-8.0); NEUT % 71.7 % (16.0-70.0); PLATELET COUNT 203 TH/MM3 (150-450); RED BLOOD COUNT 4.15 MIL/MM3 (4.50-5.90); RED CELL DISTRIBUTION WIDTH 13.4 % (11.6-17.2); WHITE BLOOD COUNT 7.3 TH/MM3 (4.0-11.0)
[2017-05-17 12:18] LABS: INTERNATIONAL NORMALIZED RATIO 1.1 RATIO; PROTHROMBIN TIME - PATIENT 12.4 SEC (9.8-11.6)
[2017-05-17 12:45] LABS: BICARBONATE 28.8 MEQ/L (21.0-32.0); POTASSIUM 3.7 MEQ/L (3.5-5.1)
--- NOTE | 2017-05-17 13:40 | HHI.PYPN ---
Subjective Remarks Patient seen today for psychiatric reevaluation along with nurse in charge. Patient says that he is very upset, he does not need to be here. 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 He says that he is planning to move away from his "some of these evil people cannot continue making my life impossible and putting dust under my skin". Patient this morning just took 1 mg of Risperdal stating that when he took 2 mg last night he was nauseated, but he was tried again this morning. Patient has been demanding to be discharged, but no agitation or aggressive behavior reported. Review of Systems Other No somatic complaints at this moment Objective Alert: Yes [place]: Person, Place, Date, Situation Mood: Angry Affect: Labile Memory Intact: Immediate, Recent, Remote Hallucinations: Other (he denies) Delusions: Yes Delusion Type: Paranoid Suicidal: Ideation (no SI) Homicidal: Ideation (no HI) Insight/Judgment Poor Labs Test 05/16/17 18:05 05/17/17 11:18 05/17/17 11:30 Prothrombin Time 15.5 SEC 12.4 SEC Prothromb Time International Ratio 1.4 RATIO 1.1 RATIO Blood Urea Nitrogen 12 MG/DL Creatinine 0.68 MG/DL Random Glucose 84 MG/DL Calcium Level 9.1 MG/DL Sodium Level 143 MEQ/L Potassium Level 3.7 MEQ/L Chloride Level 108 MEQ/L Carbon Dioxide Level 28.8 MEQ/L Anion Gap 6 MEQ/L Estimat Glomerular Filtration Rate 118 ML/MIN White Blood Count 7.3 TH/MM3 Red Blood Count 4.15 MIL/MM3 Hemoglobin 12.5 GM/DL Hematocrit 37.6 % Mean Corpuscular Volume 90.7 FL Mean Corpuscular Hemoglobin 30.1 PG Mean Corpuscular Hemoglobin Concent 33.1 % Red Cell Distribution Width 13.4 % Platelet Count 203 TH/MM3 Mean Platelet Volume 6.8 FL Neutrophils (%) (Auto) 71.7 % Lymphocytes (%) (Auto) 14.8 % Monocytes (%) (Auto) 6.3 % Eosinophils (%) (Auto) 6.4 % Basophils (%) (Auto) 0.8 % Neutrophils # (Auto) 5.3 TH/MM3 Lymphocytes # (Auto) 1.1 TH/MM3 Monocytes # (Auto) 0.5 TH/MM3 Eosinophils # (Auto) 0.5 TH/MM3 Basophils # (Auto) 0.1 TH/MM3 CBC Comment DIFF FINAL Differential Comment Vitals/IOs Vital Signs Date Time Temp Pulse Resp B/P (MAP) Pulse Ox O2 Delivery O2 Flow Rate FiO2 05/17/17 06:09 97.3 67 17 143/92 (109) 99 Assessment & Plan Problem List: (1) Unspecified psychosis ICD Codes: F29 - Unspecified psychosis not due to a substance or known physiological condition Assessment & Plan: Patient continues to be acutely delusional, with fixed delusion of his putting dust under his skin. 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 Continue Risperdal 2 mg twice a day the Assessment & Plan Estimated LOS: days Justification for Cont. Inpt. Patient remains psychotic, and needs psychiatric hospitalization for stabilization Pepito Nava MD May 17, 2017 13:40
[2017-05-17] MEDS: VANCOMYCIN INJ 1,500 MG in SODIUM CHLORID 0.9% 500 ML INJ 500 ML IV SCH (14:03)
[2017-05-17] MEDS ORDERED: WARFARIN SOD 5 MG TAB PO ONE (17:00)
--- NOTE | 2017-05-17 19:34 | HHI.PYPN ---
Subjective Remarks This is a request for second opinion. Admission note was reviewed and I agree with the history, case was discussed with nursing and patient was evaluated. Patient is very perseverant he does not have a psychotic disorder and becomes irritable when I do not subscribe to his version of the events happening to him. Pt continues to believe his ex- is "messing with him" in intricate ways that is making him look "crazy." Such as spreading dust that he is allergic to given him cellulitis and DVT. 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 He minimizes his psychiatric history. Objective Alert: Yes [place]: Person, Place, Date, Situation Mood: Angry, Oppositional Affect: Labile Memory Intact: Immediate, Recent, Remote Hallucinations: Other (he denies) Delusions: Yes Delusion Type: Grandiose (that is he about to release major album), Paranoid ( that his ex- is poisoning him) Suicidal: Ideation (no SI) Homicidal: Ideation (no HI) Insight/Judgment poor Labs Test 05/17/17 11:18 05/17/17 11:30 Prothrombin Time 12.4 SEC Prothromb Time International Ratio 1.1 RATIO Blood Urea Nitrogen 12 MG/DL Creatinine 0.68 MG/DL Random Glucose 84 MG/DL Calcium Level 9.1 MG/DL Sodium Level 143 MEQ/L Potassium Level 3.7 MEQ/L Chloride Level 108 MEQ/L Carbon Dioxide Level 28.8 MEQ/L Anion Gap 6 MEQ/L Estimat Glomerular Filtration Rate 118 ML/MIN White Blood Count 7.3 TH/MM3 Red Blood Count 4.15 MIL/MM3 Hemoglobin 12.5 GM/DL Hematocrit 37.6 % Mean Corpuscular Volume 90.7 FL Mean Corpuscular Hemoglobin 30.1 PG Mean Corpuscular Hemoglobin Concent 33.1 % Red Cell Distribution Width 13.4 % Platelet Count 203 TH/MM3 Mean Platelet Volume 6.8 FL Neutrophils (%) (Auto) 71.7 % Lymphocytes (%) (Auto) 14.8 % Monocytes (%) (Auto) 6.3 % Eosinophils (%) (Auto) 6.4 % Basophils (%) (Auto) 0.8 % Neutrophils # (Auto) 5.3 TH/MM3 Lymphocytes # (Auto) 1.1 TH/MM3 Monocytes # (Auto) 0.5 TH/MM3 Eosinophils # (Auto) 0.5 TH/MM3 Basophils # (Auto) 0.1 TH/MM3 CBC Comment DIFF FINAL Differential Comment Vitals/IOs Vital Signs Date Time Temp Pulse Resp B/P (MAP) Pulse Ox O2 Delivery O2 Flow Rate FiO2 05/17/17 06:09 97.3 67 17 143/92 (109) 99 Intake and Output 05/17/17 05/17/17 05/18/17 08:00 16:00 00:00 Intake Total 600 ml Balance 600 ml Assessment & Plan Problem List: (1) Unspecified psychosis ICD Codes: F29 - Unspecified psychosis not due to a substance or known physiological condition Assessment & Plan I agree with the first opinion to continue petition, criteria include grandiose and paranoid delusions with poor insight. Psychoeducation was done with patient about the legal process and machado act/petition. Justification for Cont. Inpt. Patient would decompensate in a less restrictive setting Hemanth Rock DO May 17, 2017 19:34
[2017-05-17] MEDS: REMOVE OLD NICOTINE PATCH T-DERMAL SCH (21:56)
[2017-05-17 22:41] VITALS: BP 130/72; PULSE 68; RESP 16; TEMP 98.3; O2SAT 99
[2017-05-18 06:04] VITALS: BP 138/77; PULSE 68; RESP 17; TEMP 97.9; O2SAT 96
--- NOTE | 2017-05-18 08:29 | HHI.PR ---
Subjective Remarks in no acute distress. afebrile. no new complaints. Objective Vitals Vital Signs Date Time Temp Pulse Resp B/P (MAP) Pulse Ox O2 Delivery O2 Flow Rate FiO2 05/18/17 06:04 97.9 68 17 138/77 (97) 96 05/17/17 22:41 98.3 68 16 130/72 (91) 99 I/O 05/17/17 05/17/17 05/17/17 05/18/17 05/18/17 05/18/17 07:00 15:00 23:00 07:00 15:00 23:00 Intake Total 600 ml 700 ml Balance 600 ml 700 ml Intake Oral 600 ml 700 ml # Voids 3 3 2 Result Diagram: 05/17/17 1130 05/17/17 1118 Objective Remarks GENERAL: This is a well-nourished, well-developed patient, in no apparent distress. CARDIOVASCULAR: Regular rate and regular rhythm without murmurs, gallops, or rubs. RESPIRATORY: Clear to auscultation. Breath sounds equal bilaterally. No wheezes , rales, or rhonchi. GASTROINTESTINAL: Abdomen soft, non-tender, nondistended. Normal, active bowel sounds MUSCULOSKELETAL: Extremities without clubbing, cyanosis, or edema. NEURO: Alert & Oriented x4 to person, place, time, situation. Moves all ext x4 skin; mild erythema over the left leg Medications and IVs Current Medications Risperidone (risperDAL) 1 mg Q12HR PO Last administered on 05/16/17t 07:56; Start 05/15/17 at 21:00; Stop 05/16/17 at 14:19; Status DC Haloperidol Lactate (Haldol Inj) 5 mg Q6H PRN IM aggresiveness, agitation ; Start 05/15/17 at 15:00 Lorazepam (Ativan) 1 mg Q6H PRN PO MODERATE TO SEVERE ANXIETY; Start 05/15/17 at 15:15 Lorazepam (Ativan Inj) 1 mg Q6H PRN IM MODERATE TO SEVERE ANXIETY; Start at 15:15 Acetaminophen (Tylenol) 650 mg Q4H PRN PO Pain 1-5 or Temp >101F; Start at 15:15 Magnesium Hydroxide (Milk Of Magnesia Liq) 30 ml DAILY PRN PO CONSTIPATION; Start 05/15/17 at 15:15 Al Hydrox/Mg Hydrox/Simethicone (Mag-Al Plus Susp Liq) 30 ml Q6H PRN PO DYSPEPSIA; Start 05/15/17 at 15:15 Nicotine (Habitrol 21 Mg Patch.24 Hr) 1 patch DAILY T-DERMAL ; Start 05/16/17 at 09:00 Miscellaneous Information 1 HS T-DERMAL ; Start 05/15/17 at 21:00 Albuterol/ Ipratropium (Duoneb Neb) 1 ampule Q6HR NEB NEB ; Start 05/15/17 at 22:00; Stop 05/15/17 at 22:38; Status DC Albuterol/ Ipratropium (Duoneb Neb) 1 ampule Q2HR NEB PRN NEB wheezing; Start 05/15/17 at 21:45; Stop 05/15/17 at 22:38; Status DC Albuterol Sulfate (Albuterol Neb) 0.63 mg Q6HR NEB NEB ; Start 05/16/17 at 04: 00; Stop 05/16/17 at 15:25; Status DC Albuterol Sulfate (Albuterol Neb) 1.25 mg Q2HR NEB PRN NEB wheezing; Start at 22:45; Stop 05/16/17 at 15:25; Status DC Vancomycin HCl 1500 mg/Sodium Chloride 515 ml @ 257.5 mls/ hr Q24H IV Last administered on 05/17/17 14:03; Start 05/16/17 at 14:00 Pharmacy Profile Note 0 ml @ 0 mls/hr UNSCH OTHER ; Start 05/16/17 at 12:00 Miconazole Nitrate (Micatin 2% Cream) 1 applic Q12HR TOPICAL Last administered on 05/17/17 09:00; Start 05/16/17 at 12:00 Multi-Ingredient Ointment (Eucerin Cream) 1 applic Q6H PRN TOPICAL urticaria; Start 05/16/17 at 12:00 Albuterol Sulfate (Proair Hfa Inh) 2 puff Q4H PRN INH SOB/WHEEZING; Start 05/16 at 12:00 Budesonide/ Formoterol Fumarate (Symbicort 160-4.5 Inh) 1 puff Q12HR INH Last administered on 05/16/17 21:56; Start 05/16/17 at 12:00 Risperidone (risperDAL) 2 mg Q12HR PO Last administered on 05/17/17 21:56; Start 05/16/17 at 21:00 Miscellaneous Information SPECIFIC LAB TO BE ... ONCE ONCE .XX ; Start 05/18 at 13:45; Stop 05/18/17 at 13:46 Albuterol Sulfate (Albuterol Neb) 2.5 mg Q6HR NEB PRN NEB wheezing; Start 05/16 at 17:00 Pharmacy Profile Note 0 ml @ 0 mls/hr UNSCH OTHER ; Start 05/17/17 at 08:45 Warfarin Sodium (Coumadin) 5 mg ONCE ONCE PO Last administered on 05/17/17 17 :15; Start 05/17/17 at 17:00; Stop 05/17/17 at 17:01; Status DC Patient Medication Teaching (Coumadin Booklet) 1 ONCE ONCE .XX Last administered on 05/17/17 17:00; Start 05/17/17 at 17:00; Stop 05/17/17 at 17:01 ; Status DC A/P Assessment and Plan A/P Delusional disorder: Management per primary team. Left lower extremity cellulitis- improving. - Lower extremity ultrasound reviewed showing no DVT of the left lower extremity. - Wound culture from previous admission on 04/26/17 positive for group A beta strep and staph aureus. - Lower extremity with no open sores or drainage. . - Blood cultures last admission were negative. - Vancomycin IV x 1 given in ED. Now on Vancomycin 1.5 g IV q24hr. Consulted pharmacy to dose. -will switch to po antibiotic within the next 24 hrs. Bilateral forearm urticaria and rash possibly secondary to eczema - Eucerin cream. Continue to assess. History of DVT on Coumadin with mildly supratherapeutic INR - Pharmacy consulted to dose, appreciate input. Follow daily.INR. History of asthma: Continue home regimen. DVT prophylaxis: on Coumadin. Debi Eli MD May 18, 2017 08:29
[2017-05-18] MEDS: NICOTINE 21 MG/24 HR PATCH T-DERMAL SCH (09:00)
[2017-05-18] MEDS: MICONAZOLE NITRATE 2% CREAM 15 GM TOPICAL SCH ×2 (09:00→20:37)
[2017-05-18] MEDS: BUDESONIDE-FORMOTEROL 160/4.5 MCG INHALER INH SCH ×2 (09:00→20:34)
[2017-05-18] MEDS: risperiDONE 1 MG TAB PO SCH ×2 (09:08→20:33)
[2017-05-18 09:35] LABS: PROTHROMBIN TIME - PATIENT 11.5 SEC (9.8-11.6)
[2017-05-18] MEDS ORDERED: PHARMACY ORDERED LAB ONE (13:45)
--- NOTE | 2017-05-18 15:07 | HHI.PYPN ---
Subjective Remarks Patient is seen today for psychiatric reevaluation, patient seems to be calm her cooperative today, patient says that he feels better, denies pain his legs, he seems to be less intrusive and fixed in delusions of being persecuted by a copy writer. 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 I tried to make and insight exercise with the patient, but the patient rejects it. No agitation or aggressive behavior reported, patient has been compliant with his medications. Review of Systems Other No somatic complaints at this moment Objective Alert: Yes [place]: Person, Place, Date, Situation Mood: Angry, Oppositional Affect: Labile Memory Intact: Immediate, Recent, Remote Hallucinations: Other (he denies) Delusions: Yes Delusion Type: Grandiose (that is he about to release major album), Paranoid ( that his ex- is poisoning him) Suicidal: Ideation (no SI) Homicidal: Ideation (no HI) Insight/Judgment poor Labs Test 05/18/17 09:05 05/18/17 13:40 Prothrombin Time 11.5 SEC Prothromb Time International Ratio 1.0 RATIO Vancomycin Level Trough 7.0 MCG/ML Vitals/IOs Vital Signs Date Time Temp Pulse Resp B/P (MAP) Pulse Ox O2 Delivery O2 Flow Rate FiO2 05/18/17 06:04 97.9 68 17 138/77 (97) 96 Intake and Output 05/18/17 05/18/17 05/19/17 08:00 16:00 00:00 Intake Total 220 ml 600 ml Balance 220 ml 600 ml Assessment & Plan Problem List: (1) Unspecified psychosis ICD Codes: F29 - Unspecified psychosis not due to a substance or known physiological condition Assessment & Plan Estimated LOS: days Justification for Cont. Inpt. Patient has an elevated risk of danger to self and others due to the level of psychosis out of the psychiatric unit. Pepito Nava MD May 18, 2017 15:07
[2017-05-18] MEDS: VANCOMYCIN INJ 1,500 MG in SODIUM CHLORID 0.9% 500 ML INJ 500 ML IV SCH (15:08)
[2017-05-18] MEDS ORDERED: WARFARIN SOD 10 MG TAB PO ONE (16:00)
[2017-05-18 19:00] VITALS: BP 128/67; PULSE 73; RESP 18; TEMP 98.2
[2017-05-18] MEDS: REMOVE OLD NICOTINE PATCH T-DERMAL SCH (20:34)
[2017-05-19 05:53] VITALS: BP 129/68; PULSE 58; RESP 18; TEMP 97.6; O2SAT 97
[2017-05-19] MEDS: NICOTINE 21 MG/24 HR PATCH T-DERMAL SCH (07:18)
[2017-05-19] MEDS ORDERED: VANCOMYCIN INJ 1,500 MG in SODIUM CHLORID 0.9% 500 ML INJ 500 ML IV SCH (08:00)
[2017-05-19] MEDS: risperiDONE 1 MG TAB PO SCH (08:32)
[2017-05-19] MEDS: MICONAZOLE NITRATE 2% CREAM 15 GM TOPICAL SCH (08:33)
[2017-05-19] MEDS: BUDESONIDE-FORMOTEROL 160/4.5 MCG INHALER INH SCH (08:33)
--- NOTE | 2017-05-19 08:59 | HHI.PR ---
Subjective Remarks in no distress. no fever. denies pain. no new complaints. Objective Vitals Vital Signs Date Time Temp Pulse Resp B/P (MAP) Pulse Ox O2 Delivery O2 Flow Rate FiO2 05/19/17 05:53 97.6 58 18 129/68 (88) 97 05/18/17 19:00 98.2 73 18 128/67 (87) I/O 05/18/17 05/18/17 05/18/17 05/19/17 05/19/17 05/19/17 07:00 15:00 23:00 07:00 15:00 23:00 Intake Total 700 ml 600 ml 1115 ml 240 ml Balance 700 ml 600 ml 1115 ml 240 ml Intake Oral 700 ml 600 ml 600 ml 240 ml IV Total 515 ml # Voids 2 7 Result Diagram: 05/17/17 1130 05/17/17 1118 Objective Remarks GENERAL: This is a well-nourished, well-developed patient, in no apparent distress. CARDIOVASCULAR: Regular rate and regular rhythm without murmurs, gallops, or rubs. RESPIRATORY: Clear to auscultation. Breath sounds equal bilaterally. No wheezes , rales, or rhonchi. GASTROINTESTINAL: Abdomen soft, non-tender, nondistended. Normal, active bowel sounds MUSCULOSKELETAL: Extremities without clubbing, cyanosis, or edema. NEURO: Alert & Oriented x4 to person, place, time, situation. Moves all ext x4 skin; mild erythema over the left leg- this has much improved. Medications and IVs Current Medications Risperidone (risperDAL) 1 mg Q12HR PO Last administered on 05/16/17t 07:56; Start 05/15/17 at 21:00; Stop 05/16/17 at 14:19; Status DC Haloperidol Lactate (Haldol Inj) 5 mg Q6H PRN IM aggresiveness, agitation ; Start 05/15/17 at 15:00 Lorazepam (Ativan) 1 mg Q6H PRN PO MODERATE TO SEVERE ANXIETY; Start 05/15/17 at 15:15 Lorazepam (Ativan Inj) 1 mg Q6H PRN IM MODERATE TO SEVERE ANXIETY; Start at 15:15 Acetaminophen (Tylenol) 650 mg Q4H PRN PO Pain 1-5 or Temp >101F; Start at 15:15 Magnesium Hydroxide (Milk Of Magnesia Liq) 30 ml DAILY PRN PO CONSTIPATION; Start 05/15/17 at 15:15 Al Hydrox/Mg Hydrox/Simethicone (Mag-Al Plus Susp Liq) 30 ml Q6H PRN PO DYSPEPSIA; Start 05/15/17 at 15:15 Nicotine (Habitrol 21 Mg Patch.24 Hr) 1 patch DAILY T-DERMAL ; Start 05/16/17 at 09:00 Miscellaneous Information 1 HS T-DERMAL ; Start 05/15/17 at 21:00 Albuterol/ Ipratropium (Duoneb Neb) 1 ampule Q6HR NEB NEB ; Start 05/15/17 at 22:00; Stop 05/15/17 at 22:38; Status DC Albuterol/ Ipratropium (Duoneb Neb) 1 ampule Q2HR NEB PRN NEB wheezing; Start 05/15/17 at 21:45; Stop 05/15/17 at 22:38; Status DC Albuterol Sulfate (Albuterol Neb) 0.63 mg Q6HR NEB NEB ; Start 05/16/17 at 04: 00; Stop 05/16/17 at 15:25; Status DC Albuterol Sulfate (Albuterol Neb) 1.25 mg Q2HR NEB PRN NEB wheezing; Start at 22:45; Stop 05/16/17 at 15:25; Status DC Vancomycin HCl 1500 mg/Sodium Chloride 515 ml @ 257.5 mls/ hr Q24H IV Last administered on 05/18/17 15:08; Start 05/16/17 at 14:00; Stop 05/18/17 at 18:00 ; Status DC Pharmacy Profile Note 0 ml @ 0 mls/hr UNSCH OTHER ; Start 05/16/17 at 12:00 Miconazole Nitrate (Micatin 2% Cream) 1 applic Q12HR TOPICAL Last administered on 05/19/17 08:33; Start 05/16/17 at 12:00 Multi-Ingredient Ointment (Eucerin Cream) 1 applic Q6H PRN TOPICAL urticaria Last administered on 05/18/17 09:08; Start 05/16/17 at 12:00 Albuterol Sulfate (Proair Hfa Inh) 2 puff Q4H PRN INH SOB/WHEEZING; Start 05/16 at 12:00 Budesonide/ Formoterol Fumarate (Symbicort 160-4.5 Inh) 1 puff Q12HR INH Last administered on 05/19/17 08:33; Start 05/16/17 at 12:00 Risperidone (risperDAL) 2 mg Q12HR PO Last administered on 05/19/17 08:32; Start 05/16/17 at 21:00 Miscellaneous Information SPECIFIC LAB TO BE FEROZ... ONCE ONCE .XX Last administered on 05/18/17 13:45; Start 05/18/17 at 13:45; Stop 05/18/17 at 13:46 ; Status DC Albuterol Sulfate (Albuterol Neb) 2.5 mg Q6HR NEB PRN NEB wheezing; Start 05/16 at 17:00 Pharmacy Profile Note 0 ml @ 0 mls/hr UNSCH OTHER ; Start 05/17/17 at 08:45 Warfarin Sodium (Coumadin) 5 mg ONCE ONCE PO Last administered on 05/17/17 17 :15; Start 05/17/17 at 17:00; Stop 05/17/17 at 17:01; Status DC Patient Medication Teaching (Coumadin Booklet) 1 ONCE ONCE .XX Last administered on 05/17/17 17:00; Start 05/17/17 at 17:00; Stop 05/17/17 at 17:01 ; Status DC Warfarin Sodium (Coumadin) 10 mg ONCE ONCE PO Last administered on 05/18/17 16:19; Start 05/18/17 at 16:00; Stop 05/18/17 at 16:01; Status DC Miscellaneous Information SPECIFIC LAB TO BE DRAWN:VANCOMY... ONCE ONCE .XX ; Start 05/21/17 at 13:45; Stop 05/21/17 at 13:46 Vancomycin HCl 1500 mg/Sodium Chloride 515 ml @ 250 mls/hr Q18H IV Last administered on 05/19/17 08:00; Start 05/19/17 at 08:00 A/P Assessment and Plan A/P Delusional disorder: Management per primary team. Left lower extremity cellulitis- improving. - Lower extremity ultrasound reviewed showing no DVT of the left lower extremity. - Wound culture from previous admission on 04/26/17 positive for group A beta strep and staph aureus. - Lower extremity with no open sores or drainage. . - Blood cultures last admission were negative. - will switch to po doxycycline upon discharge. Bilateral forearm urticaria and rash possibly secondary to eczema - Eucerin cream. Continue to assess. History of DVT ; resume coumadin- INR monitoring as outpatient. History of asthma: Continue home regimen. DVT prophylaxis: on Coumadin. Discharge Planning patient is medically stable for discharge. dc planning per psych. d/w . Debi Eli MD May 19, 2017 08:59
[2017-05-19] MEDS ORDERED: DOXY100C PO (09:00)
[2017-05-19] MEDS ORDERED: RISP1 PO (10:22)
[2017-05-19 13:25] LABS: INTERNATIONAL NORMALIZED RATIO 1.1 RATIO; PROTHROMBIN TIME - PATIENT 11.7 SEC (9.8-11.6)
--- NOTE | 2017-05-19 15:54 | HHI.DS ---
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 Monahan in the medical floor due to delusional thinking, as per Dr. Monahan on 04/28/2017 61- year-old male with fairly obvious delusional disorder of being poisoned in some fashion by some unknown item or items in his environment. Currently being seen and treated for cellulitis and DVT. Patient is apparently cooperative with his treatment, according to nurse. Patient does not wish to be treated psychiatrically. He denies any suicidal or homicidal ideation, plan or intent. He is not felt to be Domingo act bullet this time as he is willing to accept treatment and not in danger of imminent or irreversible arm with a known medical history of asthma, lower back pain, history of DVT and lower extremity cellulitis who presented to the ED with complains of continued left lower extremity erythema and swelling as well as bilateral upper extremity urticaria. Patient has a recent hospitalization on April 26, 2017 with new onset DVT, left lower extremity cellulitis and sepsis. At that time patient was positive for Group A strep, staph aureus and treated with Vancomycin for 7 days. Since that time patient states he went home and noticed improvement for some time but for the past several days his left lower extremity has become more warm, swollen and erythremic. He denies any antibiotic use since hospitalization. Denies any recent illness including fever, chills, cough, shortness of breath, abdominal pain, nausea, vomiting, diarrhea or dysuria. At the time of last hospitalization he was voicing statements of paranoia involving his ex- "having a copy camera operator in her pocket" and "people trying to mess with him putting construction dust in the ac ducts and making his bilateral upper arms itch". Patient was consulted to psychiatry to explore potential underlying major psychotic disorder and the need of hospitalization. On psychiatric evaluation today patient is found calm and cooperative. At the beginning, once I presented as a psychiatrist, patient became irritable stating that he is not here to see a psychiatrist and all his complains are real. Patient says that even though is difficult to believe "I can demonstrate, ex- is using a copy camera operator to come to me and introduce construction material he my legs and in my head, and that is the reason I am continuously having this cellulitis". He also says that most probably he has son "odd material he might blood". 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 Patient continuously says that his cellulitis is due to the fact that has started his material is introduced by a copy camera operator under his skin. Patient also uses very often at term "they"to refer to people that are following him and could be watching him in his house. But, he does not elaborate about the identity of these people. Patient seems to be suspicious, paranoid, with many statements with a delusional flavor. He denies depressive symptoms, he denies anxiety, he denies suicidal and homicidal ideation, he denies visual and auditory hallucinations. Denies the use of drugs and alcohol. Patient is fully oriented 3, no cognitive impairment, no attention deficit, no fluctuation of consciousness. 05/16/2017 patient seen today for psychiatric evaluation along with nurse in charge AMANDA Rogers. Patient at the beginning upset, requesting to be discharged. He says that he doesn't need to be here that he is not a psychiatric patient. He says that he has prove that his has been using her [id number] who is a copy camera operator in order to put dust in her bed "and his dust is the responsible for my cellulitis". Patient says that all his family are plotting against him in order to get the money from his father. Patient says that many police in [place] are aware of this situation. Today he clarifies that he has been already admitted in psychiatry in the [facility] "for telling the truth to the doctors, but the doctors don't believe me". 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 Patient says that he has a CD in his pertinence "that is the best prove what I'm telling". She refuses to give information about his family for collateral information. Patient has been taking his medications, "because I want to do the right thing to leave the hospital". No aggressive behavior or agitation has been reported. Patient is oriented 3. Tobacco Use In Past 30 Days: No Tobacco Past 30 Days Alcohol Use: Never Hospital Course Patient was admitted in the medical psychiatric unit with fixed delusion of being putting dust in his legs and his skin by functional skills tutor paid by his ex-. Patient has developed cellulitis due to self picking behavior. Patient was initiated in psychotropics. Since the beginning the patient was very upset for rehospitalization and stating that all he was saying was true he could provide. 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 Patient was started in Risperdal 1 mg twice a day for his psychosis, the medication was titrated up to 2 g twice a day. He showed a modest response, gaining some insight of his psychosis, but he persisted in his delusional ideas. Now, during this hospitalization patient demonstrated good behavior control, he was never agitated or aggressive. He demonstrated that his delusions are fixed it does not seem to be dangerous at this moment. Patient was compliant with his medications,and medical side effects. He was discharged back home, with appropriate outpatient psychiatric care. Results Blood Pressure 129 / 68 Vital Signs Date Time Temp Pulse Resp B/P (MAP) Pulse Ox O2 Delivery O2 Flow Rate FiO2 05/19/17 05:53 97.6 58 18 129/68 (88) 97 Laboratory Tests Test 05/16/17 18:05 05/17/17 11:18 05/17/17 11:30 05/18/17 09:05 Prothrombin Time 15.5 SEC (9.8-11.6) 12.4 SEC (9.8-11.6) Chloride Level 108 MEQ/L (98-107) Red Blood Count 4.15 MIL/MM3 (4.50-5.90) Hemoglobin 12.5 GM/DL (13.0-17.0) Hematocrit 37.6 % (39.0-51.0) Mean Platelet Volume 6.8 FL (7.0-11.0) Neutrophils (%) (Auto) 71.7 % (16.0-70.0) Eosinophils (%) (Auto) 6.4 % (0.0-4.0) Eosinophils # (Auto) 0.5 TH/MM3 (0-0.4) Test 05/18/17 13:40 05/19/17 12:43 Prothrombin Time 11.7 SEC (9.8-11.6) Laboratory Results Test 05/16/17 08:29 Cholesterol Level 151 MG/DL (120-200) HDL Cholesterol 45.9 MG/DL (40.0-60.0) Hemoglobin A1c 5.4 % (4.3-6.0) LDL Cholesterol 90 MG/DL (0-99) Triglycerides Level 77 MG/DL (42-150) Summary of Procedures No procedures Pending results at discharge: No Medications # of Antipsychotic meds at D/C: 1 Approp Antipsych med options 1 - Minimum of three failed multiple trials of monotherapy. 2 - Documented plan to taper to monotherapy due to previous use of multiple meds OR cross-taper in progress at D/C. 3 - Documentation of augmentation of Clozapine. 4 - Justification other than those listed in allowable values 1-3, document here : Discharge Discharge Date: May 19, 2017 Discharge Diagnosis: (1) Delusional disorder Diagnosis: Principal ICD Code: F22 - Delusional disorders Status: Chronic Mental Status Exam at Disch man, age appearing, [facility], he is calm and cooperative, his speech is fluent and is spontaneous, mood is euthymic and affect is as well euthymic. Thought process is logical, linear. Thought content is devoid of suicidal ideation, homicidal ideation, visual and auditory hallucinations. However he does have the fixed delusion of being putting dust in his skin by merchandise for resale purchasing agent pay by his ex-. Impulse control, insight, judgment are fair. Cognition is good. Pt Condition on Discharge: Stable Discharge Disposition: Discharge Home Discharge Instructions Diet Instructions: As Tolerated, No Restrictions Activities you can perform: Regular-No Restrictions Scheduled Appointment: Dr. Cunningham Appointment Date: May 20, 2017 Appointment Time: 9am Discharge Time > 30 minutes Discharge/Advance Care Plan Health Problems: (1) Unspecified psychosis Goals to promote your health * To prevent worsening of your condition and complications * To maintain your health at the optimal level Directions to meet your goals Take your medications as prescribed Follow your dietary instruction Follow activity as directed Keep your appointments as scheduled Take your immunizations and boosters as scheduled If your symptoms worsen call your PCP, if no PCP go to Urgent Care Center or Emergency Room For 24/03 questions related to your inpatient stay or results of tests pending at discharge, please contact Dr. Pepito Nava at Smoking is Dangerous to Your Health. Avoid second hand smoking Pepito Nava MD May 19, 2017 15:53
[2017-05-21] MEDS ORDERED: PHARMACY ORDERED LAB ONE (13:45)
== END 2017-05-19 13:55 | disposition home or self-care (01) | DRG 885 ==
LOC: H4EA 14:16
PROVIDERS: ADMIT Psychiatry & Neurology Psychiatry; ATTEND Psychiatry & Neurology Psychiatry
DX: F22 Delusional disorders (principal); L03.116 Cellulitis of left lower limb; J45.909 Unspecified asthma, uncomplicated; Z86.718 Personal history of other venous thrombosis and embolism; E78.5 Hyperlipidemia, unspecified; Z79.01 Long term (current) use of anticoagulants; L50.9 Urticaria, unspecified; F41.9 Anxiety disorder, unspecified
CPT/HCPCS: 76937; 80048; 80053; 80061; 80202; 83036; 85025; 85610; 85652; 85730; 86140; 87040; 93971; 94664; 96365; 96366; 96375; 96376; G0378; J1885; J3370; J7030; J7040; J7050